=== PATIENT | male | born 1955 | race Caucasian/White ===

== ENCOUNTER 2017-03-04 14:18 | Inpatient (IN) | payer OTHER ==
[2017-03-04 15:21] LABS: Hemoglobin 11.1 g/dL (14.0-18.0); Mean Corpuscular HGB CONC 32.4 g/dL (32.0-36.0); Mean Corpuscular Volume 95.7 fL (80.0-94.0); RBC Distribution Width 14.4 % (11.5-14.5); Red Blood Cell (RBC) Count 3.59 mill/uL (4.70-6.10); White Blood Cell (WBC) Count 8.3 thou/uL (4.8-10.8)
[2017-03-04 15:22] LABS: #Lymphocytes 1.1 thou/uL (1.20-3.40); #Monocytes 1.1 thou/uL (0.11-0.59); %Basophils 0.3 % (0.0-1.0); %Eosinophils 0.4 % (0.0-10.0); %Lymphocytes 13.3 % (21.0-51.0); %Monocytes 13.6 % (0.0-10.0); %Neutrophils 72.3 % (42.0-75.0); Platelet Count 82 thou/uL (130-400)
--- NOTE | 2017-03-04 15:35 | RAD ---
CHEST ONE VIEW: 03/04/17 HISTORY: Emergency exam. COMPARISON: Chest one view 06/14/16. FINDINGS: There is opacity in the right middle and right lower lobe. Remainder of the lung aguirre are clear. No pneumothorax. IMPRESSION: Right middle lobe and lower lobe air space opacity may represent atelectasis or infection. POS: [facility]
[2017-03-04 15:43] LABS: ALT (SGPT) 46 U/L (8-55); AST (SGOT) 105 U/L (5-34); Albumin 3.3 g/dL (3.4-4.8); Alkaline Phosphatase 195 U/L (40-150); Anion Gap 11 mmol/L (10-20); BUN (Urea Nitrogen) 6 mg/dL (8.4-25.7); Bilirubin, Total 2.5 mg/dL (0.2-1.2); CK (CPK) 727 U/L (30-200); Calc. Creatinine Clearance 0 mL/min (70-130); Calcium 9.1 mg/dL (7.8-10.44); Carbon Dioxide 29 mmol/L (23-31); Chloride 89 mmol/L (98-107); Estimated GFR-MDRD Greater than 90; Globulin 4.5 g/dL (2.4-3.5); Glucose 124 mg/dL (80-115); Potassium 4.3 mmol/L (3.5-5.1); Protein, Total 7.8 g/dL (5.8-8.1); Sodium 125 mmol/L (136-145)
[2017-03-04 15:45] LABS: Troponin I 0.015 ng/mL (< 0.028)
[2017-03-04 15:50] LABS: CKMB 9.2 ng/mL (0-6.6)
[2017-03-04] MEDS ORDERED: Furosemide 40 MG/4 ML VIAL ONE (16:44)
[2017-03-04 16:51] LABS: Bilirubin Negative (Negative); Blood, Urine Negative (Negative); Clarity CLEAR (Clear); Glucose, Urine (Dipstick) Negative (Negative); Leukocyte Negative (Negative); Nitrite Negative (Negative); Protein, Urine (Dipstick) 100 mg/dL (Neg-Trace)
[2017-03-04] MEDS ORDERED: Doxycycline 100 MG CAP PO SCH (17:00)
[2017-03-04 17:04] LABS: Bacteria/HPF None Seen HPF (None Seen); Hyaline Casts/LPF 0-3 HYALINE CAST LPF (0-3 Hyaline); RBC/HPF 0-3 HPF (0-3); Squamous Epithelial 0-3 HPF (0-3); WBC/HPF 0-3 HPF (0-3)
[2017-03-04 19:16] LABS: Troponin I 0.015 ng/mL (< 0.028)
[2017-03-04] MEDS ORDERED: Acetaminophen 325 MG TAB PO PRN ×2 (20:24→20:36)
[2017-03-04] MEDS ORDERED: Ondansetron HCl/PF 4 MG/2 ML Vial IVP PRN (20:24)
[2017-03-04] MEDS ORDERED: Ondansetron ODT 4 MG TAB SL PRN (20:24)
[2017-03-04] MEDS ORDERED: HumaLOG 300 UNITS/3 ML VIAL SC PRN ×2 (20:36)
[2017-03-04] MEDS ORDERED: Dextrose 5% in Water 1,000 ML IV PRN (20:36)
[2017-03-04] MEDS ORDERED: Benzonatate 100 MG CAP PO PRN (20:36)
[2017-03-04] MEDS ORDERED: Dextrose 50% Abboject 50 ML SYRINGE SLOW IVP PRN (20:36)
[2017-03-04] MEDS ORDERED: hydrALAZINE 20 MG/ML VIAL SLOW IVP PRN (20:36)
[2017-03-04] MEDS ORDERED: Mag-Al 1200 mg/1200 mg/30 ML UDCUP PO PRN (20:36)
[2017-03-04] MEDS: Famotidine 20 MG TAB PO SCH (20:57)
[2017-03-04] MEDS: Docusate 100 MG CAP PO SCH (20:57)
--- NOTE | 2017-03-04 21:44 | HP ---
PRIMARY CARE PHYSICIAN: Dr. Gibbs. CHIEF COMPLAINT: Difficulty breathing. HISTORY OF PRESENT ILLNESS: Mr. Manzano is a pleasant 61-year-old gentleman who has a history of diabe yue and hypertension. He also has a history of aortic stenosis and recent aortic valve replacement w ith a porcine valve. He was in his usual state of health until about 2 days ago when he says he star harvinder feeling "bad." He says he thought he might have fever and was having some cough which was produc tive of some clear phlegm and he also noted that he started getting short of breath anywhere when he tried to walk more than 40 or 50 feet. He also noticed some increasing lower extremity edema and a l ittle nasal congestion. He said he had pneumonia about a year ago and was concerned that this could be occurring again; however, he says at this time the symptoms are not as severe. He went to see his primary care physician who was concerned and told him to go to the emergency room for evaluation. T he patient again has noted about a 21-pound weight gain over the last few weeks. He denies any chest pain, however. He denies any palpitations. He denies any PND or orthopnea. He says he can sleep t hrough the night without difficulty and does not have to be propped up on any pillows to rest. The p atient had a chest x-ray done in the ER which was consistent with either pulmonary vascular congestio n or infiltrate which could not be ruled out in the right mid to lower lobe. The patient has been gi all Lasix in the ER and has since improved with regards to his symptoms. REVIEW OF SYSTEMS: Constitutional: There are no fevers, chills, no night sweats, no weight loss. H EENT: No headaches, no dizziness, no visual changes, no sore throat, no rhinorrhea, no neck pain, no adenopathy. Pulmonary: As the history of present illness. He has had some cough productive of tanner ar sputum. There is no hemoptysis and no chest pain. Cardiovascular: As the history of present illness. Gastrointestinal: He denies any abdominal pain, no nausea, no vomiting, no change in bowels. Genitourinary: No urinary frequency, hematuria, no he sitancy. Neurologic: No focal weakness, numbness, no seizures. Psychiatric: No symptoms of anxiet y or depression. Skin and Integument: No skin changes. No rash. Endocrine: No heat or cold intolerance. PAST MEDICAL HISTORY: Significant for diabetes mellitus type 2, hypertension, obesity, aortic stenos is. PAST SURGICAL HISTORY: He has had an aortic valve replacement with a porcine valve. He had right kn ee surgery with some removal of cartilage, left hip surgery which was a left hip replacement. ALLERGIES: KEFLEX which causes hives. SOCIAL HISTORY: He is . He is a former smoker. He occasionally drinks a beer. CODE STATUS: FULL CODE. FAMILY HISTORY: He has a mother that had a "bad valve." MEDICATIONS: As taken from the ER records include metformin 500 mg twice a day, metoprolol 50 mg 2 t ablets in the day, valsartan 160 mg daily, and Lasix 40 mg a day. PHYSICAL EXAMINATION: GENERAL: He is alert and oriented. He appears to be in no acute distress. VITAL SIGNS: Blood pressure was 152/83, heart rate 82, respiratory rate of 20, temperature is 98.6, O2 sat was 95% on room air. HEENT: Pupils are equal, round, and reactive. Extraocular muscles are intact. His sclerae are anic teric. Throat, no erythema, no exudates. NECK: There is no adenopathy, no bruits. LUNGS: He has got some coarse breath sounds, but in general clear to auscultation. No rales. No wh eezing. CARDIOVASCULAR: He has a normal S1, S2. I did not appreciate an S3 or S4. He does have a 2/6 systo lic murmur. ABDOMEN: Obese, it is soft, it is nontender, nondistended. Positive for bowel sounds. No rebound, no guarding. EXTREMITIES: He has got 1+ edema. NEUROLOGICALLY: The exam is nonfocal. LABORATORY RESULTS: White blood cell count 8.3, hemoglobin 11.1, hematocrit is 34.4, platelet count is 82. Sodium 125, potassium 4.2, chloride is 89, CO2 is 29, BUN is 6, creatinine 0.71, glucose is 1 25, bilirubin is elevated at 2.5, so was the natriuretic peptide. ASSESSMENT AND PLAN: 1. This is a pleasant 61-year-old gentleman who presents with increasing shortness of breath over th e past few days as well as increasing lower extremity edema. His symptoms are more consistent with p ossible congestive heart failure exacerbation then pneumonia as the patient does not have a white blo od cell count elevation, nor does he have a fever or the classic clinical symptoms associated with pn eumonia. He has maintained a good appetite, etc. He seems to have responded to Lasix here in the em ergency room. It is noted through review of records that he has some liver disease as well. He had an abdominal ultrasound back in March and he does have some thrombocytopenia and elevation of his liver function test on lab work. Decompensated liver disease could also lead to volume expansion as well. To help us assess, he will be admitted. We will continue IV diuresis as tolerated. Get an ec hocardiogram to evaluate his valve as well as his ejection fraction and repeat his proBNP. 2. Hyponatremia. I suspect this is likely risk result of congestive heart failure or to early cirrh osis. Hopefully, with diuresis, this should improve with improved volume status. 3. Pneumonia, this seems less likely. We will repeat a chest x-ray in the a.m., and if the changes seen have improved then more than likely this was a result of volume overload. We will hold off on a dditional antibiotics at this time. 4. Diabetes mellitus. We will continue metformin as well as sliding scale insulin. 5. With hypertension, we will continue his usual home medications for blood pressure.
[2017-03-04 22:10] LABS: Troponin I 0.016 ng/mL (< 0.028)
[2017-03-04 23:40] LABS: Osmolality, Urine 241 mOsm/kg (300-900)
[2017-03-05 00:19] LABS: Sodium, Urine 42 mmol/L (Not Available)
[2017-03-05] MEDS: Furosemide 40 MG/4 ML VIAL SLOW IVP SCH ×2 (05:23→14:45)
[2017-03-05 05:43] LABS: ALT (SGPT) 40 U/L (8-55); AST (SGOT) 98 U/L (5-34); Albumin 2.9 g/dL (3.4-4.8); Alkaline Phosphatase 159 U/L (40-150); Anion Gap 13 mmol/L (10-20); BUN (Urea Nitrogen) 7 mg/dL (8.4-25.7); Bilirubin, Total 2.5 mg/dL (0.2-1.2); Calc. Creatinine Clearance 205 mL/min (70-130); Calcium 8.6 mg/dL (7.8-10.44); Carbon Dioxide 26 mmol/L (23-31); Chloride 90 mmol/L (98-107); Estimated GFR-MDRD Greater than 90; Globulin 4.1 g/dL (2.4-3.5); Glucose 90 mg/dL (80-115); Magnesium 1.2 mg/dL (1.6-2.6); Phosphorus 3.5 mg/dL (2.3-4.7); Potassium 3.9 mmol/L (3.5-5.1); Sodium 125 mmol/L (136-145)
[2017-03-05 06:14] LABS: Band 4 % (5-11); Eosinophils 2 % (0-10); Hemoglobin 10.2 g/dL (14.0-18.0); Lymphocytes 19 % (21-51); MDiff Complete? YES; Mean Corpuscular HGB CONC 33.1 g/dL (32.0-36.0); Mean Corpuscular Hemoglobin 31.6 pg (27.0-31.0); Mean Corpuscular Volume 95.4 fl (80.0-94.0); Mean Platelet Volume 8.3 fL (7.4-10.4); Monocytes 13 % (0-10); Neutrophil 62 % (42-75); PLT Morphology Comment Appears Decreased; Platelet Count 70 thou/uL (130-400); RBC Distribution Width 14.6 % (11.5-14.5); Red Blood Cell (RBC) Count 3.23 mill/uL (4.70-6.10); White Blood Cell (WBC) Count 7.2 thou/uL (4.8-10.8)
--- NOTE | 2017-03-05 08:05 | RAD ---
2 VIEWS CHEST: Date: 03/05/17 COMPARISON: 03/31/16 and 03/04/17. HISTORY: Congestive heart failure. FINDINGS: Two views of the chest show a cardiomediastinal silhouette which is upper limits of normal in size. T he patient is status post sternotomy for aortic valve replacement. There is no evidence of consolidat ion, mass, or pleural effusion. IMPRESSION: No evidence of acute cardiopulmonary disease. POS: [facility]
[2017-03-05] MEDS ORDERED: Enoxaparin Sodium 40 MG/0.4 ML SYRINGE SC SCH (09:00)
[2017-03-05] MEDS: Docusate 100 MG CAP PO SCH ×2 (09:23→20:05)
[2017-03-05] MEDS: Famotidine 20 MG TAB PO SCH ×2 (09:23→20:05)
[2017-03-05] MEDS ORDERED: Magnesium Sulfate 4 GM in Sodium Chloride 0.9% 250 ML 250 ML IVPB SCH (11:00)
--- NOTE | 2017-03-05 11:05 | CON ---
DATE OF SERVICE: 03/05/2017 REASON FOR CONSULTATION: Heart failure. PRIMARY STITCHER HAND: Dr. Lore Garcia. HISTORY OF PRESENT ILLNESS: Mr. Manzano is a very pleasant 61-year-old white gentleman, who [facility]. He has noted that in the last 2 months, he has slowly been gett ing more short of breath, has slowly been gaining weight, a total of about 20 pounds. He has slowly noticed worsening edema in his legs and increased girth in his abdomen to the point where he could no t buckle up his pants anymore. He still lay on his bed and tried to sleep, but his shortness of pipo th was getting worse. He saw his primary care doctor, Dr. Gibbs, and she diagnosed him with conges tive heart failure and was sent to the ER and he was admitted for IV diuresis. He states that he has been having a lot of cough recently and the cough is just getting worse. PAST MEDICAL HISTORY: 1. Type 2 diabetes. 2. Hypertension. 3. Obesity. 4. Severe aortic stenosis, status post bioprosthetic aortic valve. 5. Mild coronary artery disease. PAST SURGICAL HISTORY: 1. AVR with a #23 Angulo Magna bioprosthetic aortic valve. 2. Right knee surgery. 3. Left hip replacement. 4. Heart catheterization showing mild coronary disease about a year ago before his bypass. OUTPATIENT MEDICATIONS: Include, 1. Metformin 500 mg twice a day. 2. Metoprolol 50 mg twice a day. 3. Valsartan 160 mg a day. 4. Lasix 40 mg a day. 5. Aspirin 81 a day. ALLERGIES: KEFLEX, causes hives. SOCIAL HISTORY: Former smoker, occasional alcohol use, no drug use. FAMILY HISTORY: Mother had valve issues as well, otherwise noncontributory. REVIEW OF SYSTEMS: A 12-point review of systems was done and is all negative unless stated in the hi story of present illness. PHYSICAL EXAMINATION: VITAL SIGNS: Temperature 98.7, pulse 83, respiratory rate 18, sat 98% on room air, blood pressure 13 2/62. GENERAL: Awake, alert, oriented x3, in no distress. HEENT: Normocephalic, atraumatic. NECK: Supple. LUNGS: Clear. CARDIOVASCULAR: S1, S2. There is a grade 3/6 systolic murmur, mid peaking at the right upper sterna l border related to the rest of the precordium, no rubs. ABDOMEN: Distended, nontender. EXTREMITIES: 3+ edema. SKIN: Warm and dry. LABORATORY WORK: Reviewed. CBC with a white count of 7.2, hemoglobin 10.2, platelet count of 70. C hemistry: Sodium of 125, potassium is 3.9, chloride of 90, carbon dioxide of 26, anion gap of 13, BU N of 7, creatinine 0.65. GFR greater than 90. Phos was normal. Mag was low at 1.2. Total bilirubi n 2.5, AST 98, ALT 40, alkaline phosphatase 159. Troponin was negative x3. CK-MB of 9.2. BNP of 71 2, albumin of 2.9, globulin of 4.1. Cortisol was normal at 8. TSH was normal. UA was unremarkable except for 100 protein. Chest x-ray was clear on admission. ASSESSMENT AND PLAN: 1. Acute right ventricular decompensated heart failure. 2. Volume overload. 3. Abnormal liver function tests, elevated bilirubin, low albumin, and low platelets. 4. History of bioprosthetic aortic valve replacement. 5. Mild coronary artery disease. PLAN: 1. Continue IV diuresis. 2. We will get echocardiogram to make sure that his valve is normal functioning as his murmur still sounds somewhat significant hopefully he does not have a patient of mismatch. We will evaluate this with the echo. 3. May need a right upper quadrant ultrasound and his liver function tests were abnormal, we will ge t coagulation panel. Thank you for letting us to participate in the care of your patient. We will follow.
[2017-03-05 14:01] VITALS: BMI 37.2
--- NOTE | 2017-03-05 20:43 | PDOC.PN ---
- Subjective Encounter Start Date: 03/05/17 Encounter Start Time: 13:00 Patient seen and examined. No new complaints. No overnight events. SOB improving / Leg swelling improving - Objective Resuscitation Status: Resuscitation Status FULL:Full Resuscitation MAR Reviewed: Yes Vital Signs & Weight: Vital Signs (12 hours) Temp Pulse Pulse Pulse Resp BP BP 03/05/17 20:00 99.4 F 89 20 03/05/17 14:45 98.7 F 85 20 03/05/17 10:08 87 90 156/63 H 166/72 H BP Pulse Ox 03/05/17 20:00 136/63 98 03/05/17 14:45 137/65 97 03/05/17 10:08 Weight Admit Weight 274 lb 5 oz Weight 274 lb 5 oz I&O: 03/04/17 03/05/17 03/06/17 06:59 06:59 06:59 Intake Total 1380 1210 Output Total 925 2520 Balance 455 -1310 Result Diagrams: 03/05/17 04:02 03/05/17 04:02 Additional Labs: Accuchecks 03/05/17 03/05/17 03/05/17 16:42 11:53 06:05 POC Glucose 109 165 H 107 03/04/17 20:58 POC Glucose 112 H Radiology Reviewed by me: Yes (CXR - Mild PV congestion) EKG Reviewed by me: Yes (Tele SR) Phys Exam - Physical Examination Constitutional: NAD (at rest) Respiratory: no wheezing bibasilar rales, Scat rhonchi, Symmetrical Cardiovascular: RRR, no rub 2/6 SM over LLSB, No heaves/pulsations Gastrointestinal: soft, non-tender, no distention, positive bowel sounds obese Musculoskeletal: edema present (with some calf tenderness) Neurological: non-focal, normal sensation, moves all 4 limbs Psychiatric: normal affect, A&O x 3 Dx/Plan - Plan DVT proph w/SCDs (No Lovenox due to low platelets) IMPRESSION: 1. Acute CHF exacerbation 2. Hypomagnesaemia - Mg 1.2 3. Obesity BMI 37 4. Hyponatremia - prob due to Volume overload 5. h/o bioprosthetic AVR/Mild CAD/DM2/HTN/Chronic thrombocytopenia/Forner smoker PLAN: * Cardio input appreciated * Await Echo * Cont Lasix at 40 mg BID * Resume Valsartan and Metoprolol at low dose * Add Potassium Chloride 20 meq daily * AM labs * Replace Mg * r/o DVT * Conselled extensively on HF/fluid and salt rest * Will need 2-3 more days to stabilize Review of Systems - Review of Systems Cardiovascular: orthopnea. negative: chest pain, palpitations, paroxysmal nocturnal dyspnea, edema, light headedness Gastrointestinal: negative: Nausea, Vomiting, Abdominal Pain, Diarrhea, Constipation, Melena, Hematochezia, Other - Medications/Allergies Allergies/Adverse Reactions: Allergies Allergy/AdvReac Type Severity Reaction Status Date / Time cephalexin [From Keflex] Allergy Verified 06/05/16 09:49 Medications: Current Medications Acetaminophen (Tylenol) 650 mg PO Q4H PRN PRN Reason: Headache/Fever or Pain Al Hydroxide/Mg Hydroxide (Maalox) 30 ml PO Q6H PRN PRN Reason: Heartburn or Indigestion Benzonatate (Tessalon) 100 mg PO Q4H PRN PRN Reason: Cough Dextrose/Water (Dextrose 50%) 25 gm SLOW IVP PRN PRN PRN Reason: Hypoglycemia Docusate Sodium (Colace) 100 mg PO BID [facility] Last Admin: 03/05/17 20:05 Dose: 100 mg Famotidine (Pepcid) 20 mg PO BID [facility] Last Admin: 03/05/17 20:05 Dose: 20 mg Furosemide (Lasix) 40 mg SLOW IVP 0600,1400 [facility] Last Admin: 03/05/17 14:45 Dose: 40 mg Glucagon (Glucagon) 1 mg IM PRN PRN PRN Reason: Hypoglycemia Hydralazine HCl (Apresoline) 10 mg SLOW IVP Q4H PRN PRN Reason: Systolic BP > 180 Dextrose/Water (D5w) 1,000 mls @ 0 mls/hr IV .Q0M PRN; As Directed PRN Reason: Hypoglycemia Insulin Human Lispro (Humalog) 0 units SC .MODERATE SLIDING SC PRN PRN Reason: Moderate Correctional Scale Insulin Human Lispro (Humalog) 0 units SC .BEDTIME SLIDING SC PRN PRN Reason: Bedtime Correctional Scale Magnesium Hydroxide (Milk Of Magnesium) 30 ml PO DAILYPRN PRN PRN Reason: Constipation Metoprolol Succinate (Toprol Xl) 12.5 mg PO DAILY [facility] Potassium Chloride (K-Dur) 20 meq PO QAM-WM [facility] Valsartan (Diovan) 40 mg PO HS [facility]
[2017-03-05] MEDS: Valsartan 80 MG TAB PO SCH (21:53)
[2017-03-06 06:16] LABS: ALT (SGPT) 41 U/L (8-55); AST (SGOT) 104 U/L (5-34); Albumin 2.9 g/dL (3.4-4.8); Alkaline Phosphatase 162 U/L (40-150); Anion Gap 13 mmol/L (10-20); BUN (Urea Nitrogen) 7 mg/dL (8.4-25.7); Bilirubin, Total 2.1 mg/dL (0.2-1.2); Calc. Creatinine Clearance 202 mL/min (70-130); Calcium 8.6 mg/dL (7.8-10.44); Carbon Dioxide 24 mmol/L (23-31); Chloride 92 mmol/L (98-107); Estimated GFR-MDRD Greater than 90; Globulin 4.4 g/dL (2.4-3.5); Glucose 83 mg/dL (80-115); Magnesium 1.9 mg/dL (1.6-2.6); Phosphorus 3.7 mg/dL (2.3-4.7); Potassium 4.1 mmol/L (3.5-5.1); Protein, Total 7.3 g/dL (5.8-8.1); Sodium 125 mmol/L (136-145)
[2017-03-06] MEDS: Furosemide 40 MG/4 ML VIAL SLOW IVP SCH ×2 (06:20→14:33)
[2017-03-06 06:22] LABS: Band 3 % (5-11); Hemoglobin 10.6 g/dL (14.0-18.0); Lymphocytes 18 % (21-51); MDiff Complete? YES; Mean Corpuscular HGB CONC 32.9 g/dL (32.0-36.0); Mean Corpuscular Hemoglobin 31.5 pg (27.0-31.0); Mean Corpuscular Volume 95.8 fl (80.0-94.0); Mean Platelet Volume 8.2 fL (7.4-10.4); Monocytes 17 % (0-10); Neutrophil 62 % (42-75); PLT Morphology Comment Appears Decreased; Platelet Count 67 thou/uL (130-400); RBC Distribution Width 14.4 % (11.5-14.5); Red Blood Cell (RBC) Count 3.36 mill/uL (4.70-6.10); White Blood Cell (WBC) Count 7.7 thou/uL (4.8-10.8)
[2017-03-06] MEDS: Potassium Chloride 20 MEQ TAB PO SCH (08:43)
[2017-03-06] MEDS: Famotidine 20 MG TAB PO SCH ×2 (08:43→20:05)
[2017-03-06] MEDS: Docusate 100 MG CAP PO SCH ×2 (08:43→20:05)
--- NOTE | 2017-03-06 09:11 | ULT ---
HEPATIC SONOGRAM WITH DUPLEX EVALUATION: HISTORY: Normal liver function tests. FINDINGS: No focal stones are evident within the gallbladder lumen. Gallbladder wall is slightly thickened at 0.6 cm, a nonspecific finding in the setting of small amount of free fluid throughout the abdomen. L iver is heterogeneous without focal mass or intrahepatic biliary dilatation. Spleen is 15.1 cm in le ngth. Good color and spectral Doppler flow are present within the hepatic and splenic arteries. Portal all ous flow is towards the liver. Hepatic venous flow is towards the IVC. IMPRESSION: 1. No evidence of gallstones or biliary obstruction. 2. Moderate splenomegaly and ascites may reflect portal venous hypertension. POS: [facility]
--- NOTE | 2017-03-06 09:13 | ULT ---
BILATERAL LOWER EXTREMITY VENOUS ULTRASOUND: COMPARISON: None. HISTORY: Bilateral lower extremity edema. TECHNIQUE: Multiplanar, trin[place] scale and color Doppler images were obtained in a bilateral lower extremity venous ultrasound. Spectral analysis of the Doppler waveforms was performed. FINDINGS: The bilateral common femoral veins, profunda femoral veins, superficial femoral veins, and popliteal veins are normal in appearance without visible thrombus. These vessels demonstrate normal compressib ility, flow, and augmentation. The posterior tibial veins and greater saphenous veins are also paten t. IMPRESSION: No evidence of deep vein thrombosis. POS: [facility]
--- NOTE | 2017-03-06 10:56 | PDOC.PN ---
- Subjective Encounter Start Date: 03/06/17 Encounter Start Time: 09:15 Subjective: sob is getting better -: admits to drinking 4-6 beers on alternate days -: no chest pain or palp, is amb in hallway - Objective Resuscitation Status: Resuscitation Status FULL:Full Resuscitation MAR Reviewed: Yes Vital Signs & Weight: Vital Signs (12 hours) Temp Pulse Pulse Resp BP BP BP 03/06/17 09:45 103 H 173/74 H 167/74 H 03/06/17 08:46 98.8 F 89 16 03/06/17 08:40 98.8 F 89 16 03/06/17 04:00 99.2 F 93 20 164/70 H 03/06/17 00:00 99.2 F 92 20 132/65 BP Pulse Ox Pulse Ox Pulse Ox 03/06/17 09:45 97 97 03/06/17 08:46 159/72 H 94 L 03/06/17 08:40 03/06/17 04:00 94 L 03/06/17 00:00 94 L Weight Admit Weight 274 lb 5 oz Weight 275 lb I&O: 03/05/17 03/06/17 03/07/17 06:59 06:59 06:59 Intake Total 1380 1690 Output Total 925 3440 Balance 455 -1750 Result Diagrams: 03/06/17 04:51 03/06/17 04:51 Additional Labs: Accuchecks 03/06/17 03/05/17 03/05/17 05:38 20:33 16:42 POC Glucose 100 127 H 109 03/05/17 11:53 POC Glucose 165 H Phys Exam - Physical Examination HEENT: PERRLA, moist MMs Neck: no JVD, supple Respiratory: no wheezing, no rales Cardiovascular: RRR, no significant murmur Gastrointestinal: soft, non-tender, positive bowel sounds Musculoskeletal: pulses present, edema present Neurological: non-focal, moves all 4 limbs Psychiatric: A&O x 3 Dx/Plan (1) Acute on chronic diastolic (congestive) heart failure Code(s): I50.33 - ACUTE ON CHRONIC DIASTOLIC (CONGESTIVE) HEART FAILURE Status : Acute (2) CAD (coronary artery disease) Code(s): I25.10 - ATHSCL HEART DISEASE OF [place] CORONARY ARTERY W/O ANG PCTRS Status: Chronic Qualifiers: Coronary Disease-Associated Artery/Lesion type: [place] artery [place] vs. transplanted heart: samish heart Associated angina: without angina Qualified Code(s): I25.10 - Atherosclerotic heart disease of [place] coronary artery without angina pectoris (3) Alcohol abuse Code(s): F10.10 - ALCOHOL ABUSE, UNCOMPLICATED Status: Chronic (4) Hyponatremia Code(s): E87.1 - HYPO-OSMOLALITY AND HYPONATREMIA Status: Acute Comment: sec to beer abuse (5) chronic macrocytic anemia Status: Chronic (6) Obesity (BMI 30-39.9) Code(s): E66.9 - OBESITY, UNSPECIFIED Status: Chronic (7) Thrombocytopenia Code(s): D69.6 - THROMBOCYTOPENIA, UNSPECIFIED Status: Chronic (8) Aortic stenosis Code(s): I35.0 - NONRHEUMATIC AORTIC (VALVE) STENOSIS Status: Chronic Comment: h/o bioprosthetic aortic valve (9) Diabetes type 2, controlled Code(s): E11.9 - TYPE 2 DIABETES MELLITUS WITHOUT COMPLICATIONS Status: Chronic Qualifiers: Diabetes mellitus complication status: with unspecified complications Diabetes mellitus peoplesoft administrator insulin use: without peoplesoft administrator use Qualified Code( s): E11.8 - Type 2 diabetes mellitus with unspecified complications (10) Hypertension Code(s): I10 - ESSENTIAL (PRIMARY) HYPERTENSION Status: Chronic Qualifiers: Hypertension type: essential hypertension Qualified Code(s): I10 - Essential (primary) hypertension - Plan is on lasix 40mg iv q12h -: watch for alc withdrawal, likely chronic hyponatremia -: await echo results -: is on toprol and valsartan -: to ambulate as tolerated * . Review of Systems - Medications/Allergies Allergies/Adverse Reactions: Allergies Allergy/AdvReac Type Severity Reaction Status Date / Time cephalexin [From Keflex] Allergy Verified 06/05/16 09:49 Medications: Current Medications Acetaminophen (Tylenol) 650 mg PO Q4H PRN PRN Reason: Headache/Fever or Pain Al Hydroxide/Mg Hydroxide (Maalox) 30 ml PO Q6H PRN PRN Reason: Heartburn or Indigestion Benzonatate (Tessalon) 100 mg PO Q4H PRN PRN Reason: Cough Dextrose/Water (Dextrose 50%) 25 gm SLOW IVP PRN PRN PRN Reason: Hypoglycemia Docusate Sodium (Colace) 100 mg PO BID [facility] Last Admin: 01/20/18 08:43 Dose: 100 mg Famotidine (Pepcid) 20 mg PO BID [facility] Last Admin: 03/06/17 08:43 Dose: 20 mg Furosemide (Lasix) 40 mg SLOW IVP 0600,1400 [facility] Last Admin: 03/06/17 06:20 Dose: 40 mg Glucagon (Glucagon) 1 mg IM PRN PRN PRN Reason: Hypoglycemia Hydralazine HCl (Apresoline) 10 mg SLOW IVP Q4H PRN PRN Reason: Systolic BP > 180 Dextrose/Water (D5w) 1,000 mls @ 0 mls/hr IV .Q0M PRN; As Directed PRN Reason: Hypoglycemia Insulin Human Lispro (Humalog) 0 units SC .MODERATE SLIDING SC PRN PRN Reason: Moderate Correctional Scale Insulin Human Lispro (Humalog) 0 units SC .BEDTIME SLIDING SC PRN PRN Reason: Bedtime Correctional Scale Magnesium Hydroxide (Milk Of Magnesium) 30 ml PO DAILYPRN PRN PRN Reason: Constipation Metoprolol Succinate (Toprol Xl) 12.5 mg PO DAILY [facility] Last Admin: 03/06/17 08:43 Dose: 12.5 mg Potassium Chloride (K-Dur) 20 meq PO QAM-WM [facility] Last Admin: 03/06/17 08:43 Dose: 20 meq Valsartan (Diovan) 40 mg PO HS [facility] Last Admin: 03/05/17 21:53 Dose: 40 mg
[2017-03-06] MEDS: Milk Of Magnesia 30 ML UDCUP PO PRN (18:19)
--- NOTE | 2017-03-06 19:43 | PDOC.CTH ---
Cardiology Progress Note - Subjective He has diuresed well and feels better. His abdominal distention has improved. - Objective Vital Signs Temp Pulse Pulse Resp BP BP BP 03/06/17 16:15 98.1 F 81 16 155/68 H 03/06/17 11:40 98.0 F 86 14 152/72 H 03/06/17 09:45 103 H 173/74 H 167/74 H 03/06/17 08:46 98.8 F 89 16 03/06/17 08:40 98.8 F 89 16 BP Pulse Ox Pulse Ox Pulse Ox 03/06/17 16:15 96 03/06/17 11:40 97 03/06/17 09:45 97 97 03/06/17 08:46 159/72 H 94 L 03/06/17 08:40 Admit Weight 274 lb 5 oz Weight 275 lb 03/05/17 03/06/17 03/07/17 06:59 06:59 06:59 Intake Total 1380 1690 720 Output Total 925 3440 3235 Balance 464 -3171 -0428 - Physical Examination General/Neuro: alert & oriented x3, NAD Neck: no JVD present Lungs: unlabored respirations Heart: RRR Abdomen: NT/ND Extremities: + edema B (2+) - Telemetry Telemetry Rhythm: NSR - Labs Result Diagrams: 03/06/17 04:51 03/06/17 04:51 Troponin/CKMB CK-MB (CK-2) 9.2 ng/mL (0-6.6) H* 03/04/17 14:51 Troponin I 0.016 ng/mL (< 0.028) 03/04/17 21:39 - Assessment/Plan 1. Acute RV dysfunction. 2. Sleep apnea 3. Obesity 4. Hyponatremia, likely dilutional 5. S/P bioprosthetic AVR PLAN: - Continue IV diuresis. - Echo pending.
[2017-03-06] MEDS: Valsartan 80 MG TAB PO SCH (20:05)
[2017-03-07] MEDS: Furosemide 40 MG/4 ML VIAL SLOW IVP SCH ×2 (05:06→14:15)
[2017-03-07 06:01] LABS: Magnesium 1.7 mg/dL (1.6-2.6); Phosphorus 4.3 mg/dL (2.3-4.7)
[2017-03-07 06:30] LABS: Band 1 % (5-11); Eosinophils 1 % (0-10); Hemoglobin 10.9 g/dL (14.0-18.0); Lymphocytes 21 % (21-51); MDiff Complete? YES; Mean Corpuscular HGB CONC 33.6 g/dL (32.0-36.0); Mean Corpuscular Hemoglobin 32.5 pg (27.0-31.0); Mean Corpuscular Volume 96.7 fl (80.0-94.0); Mean Platelet Volume 7.9 fL (7.4-10.4); Monocytes 9 % (0-10); Neutrophil 68 % (42-75); PLT Morphology Comment Appears Decreased; Platelet Count 67 thou/uL (130-400); RBC Distribution Width 14.7 % (11.5-14.5); Red Blood Cell (RBC) Count 3.36 mill/uL (4.70-6.10); White Blood Cell (WBC) Count 6.3 thou/uL (4.8-10.8)
[2017-03-07] MEDS ORDERED: Sodium Chloride 0.9% 10 ML ONE ×2 (07:52→14:13)
[2017-03-07] MEDS: Potassium Chloride 20 MEQ TAB PO SCH (08:25)
[2017-03-07] MEDS: Docusate 100 MG CAP PO SCH ×2 (08:25→20:34)
[2017-03-07] MEDS: Famotidine 20 MG TAB PO SCH ×2 (08:25→20:34)
[2017-03-07] MEDS: Milk Of Magnesia 30 ML UDCUP PO PRN (10:51)
--- NOTE | 2017-03-07 12:10 | PDOC.PN ---
- Subjective Encounter Start Date: 03/07/17 Encounter Start Time: 09:50 Subjective: breathing better, no chest pain or palp -: is amb in hallway - Objective Resuscitation Status: Resuscitation Status FULL:Full Resuscitation MAR Reviewed: Yes Vital Signs & Weight: Vital Signs (12 hours) Temp Pulse Pulse Pulse Resp BP BP 03/07/17 09:16 103 H 88 148/63 H 125/60 03/07/17 08:15 98.6 F 91 20 03/07/17 03:18 97.8 F 87 12 BP BP Pulse Ox Pulse Ox Pulse Ox 03/07/17 09:16 99 93 L 03/07/17 08:15 148/69 H 96 03/07/17 03:18 175/82 H 93 L Weight Admit Weight 274 lb 5 oz Weight 266 lb 3.2 oz I&O: 03/06/17 03/07/17 03/08/17 06:59 06:59 06:59 Intake Total 1690 1340 Output Total 3440 4055 Balance -7710 -7215 Result Diagrams: 03/07/17 05:22 03/06/17 04:51 Additional Labs: Accuchecks 03/07/17 03/06/17 03/06/17 05:40 19:39 17:14 POC Glucose 108 149 H 103 Phys Exam - Physical Examination HEENT: PERRLA, moist MMs Neck: no JVD, supple Respiratory: no wheezing, no rales Cardiovascular: RRR, no significant murmur Gastrointestinal: soft, non-tender, positive bowel sounds Musculoskeletal: pulses present, edema present Neurological: non-focal, moves all 4 limbs Psychiatric: A&O x 3 Dx/Plan (1) Acute on chronic diastolic (congestive) heart failure Code(s): I50.33 - ACUTE ON CHRONIC DIASTOLIC (CONGESTIVE) HEART FAILURE Status : Acute (2) CAD (coronary artery disease) Code(s): I25.10 - ATHSCL HEART DISEASE OF [place] CORONARY ARTERY W/O ANG PCTRS Status: Chronic Qualifiers: Coronary Disease-Associated Artery/Lesion type: [place] artery [place] vs. transplanted heart: [place] heart Associated angina: without angina Qualified Code(s): I25.10 - Atherosclerotic heart disease of [place] coronary artery without angina pectoris (3) Alcohol abuse Code(s): F10.10 - ALCOHOL ABUSE, UNCOMPLICATED Status: Chronic (4) Hyponatremia Code(s): E87.1 - HYPO-OSMOLALITY AND HYPONATREMIA Status: Acute Comment: sec to beer abuse (5) chronic macrocytic anemia Status: Chronic (6) Obesity (BMI 30-39.9) Code(s): E66.9 - OBESITY, UNSPECIFIED Status: Chronic (7) Thrombocytopenia Code(s): D69.6 - THROMBOCYTOPENIA, UNSPECIFIED Status: Chronic (8) Aortic stenosis Code(s): I35.0 - NONRHEUMATIC AORTIC (VALVE) STENOSIS Status: Chronic Comment: h/o bioprosthetic aortic valve (9) Diabetes type 2, controlled Code(s): E11.9 - TYPE 2 DIABETES MELLITUS WITHOUT COMPLICATIONS Status: Chronic Qualifiers: Diabetes mellitus complication status: with unspecified complications Diabetes mellitus alf insulin use: without alf use Qualified Code( s): E11.8 - Type 2 diabetes mellitus with unspecified complications (10) Hypertension Code(s): I10 - ESSENTIAL (PRIMARY) HYPERTENSION Status: Chronic Qualifiers: Hypertension type: essential hypertension Qualified Code(s): I10 - Essential (primary) hypertension - Plan echo results pending -: is diuresing well, 4055ml last 24 hrs -: on lasix, toprol xl and valsartan -: dc plan in am if stable -: counselled reg alc abuse * . Review of Systems - Medications/Allergies Allergies/Adverse Reactions: Allergies Allergy/AdvReac Type Severity Reaction Status Date / Time cephalexin [From Keflex] Allergy Verified 06/05/16 09:49 Medications: Current Medications Acetaminophen (Tylenol) 650 mg PO Q4H PRN PRN Reason: Headache/Fever or Pain Al Hydroxide/Mg Hydroxide (Maalox) 30 ml PO Q6H PRN PRN Reason: Heartburn or Indigestion Benzonatate (Tessalon) 100 mg PO Q4H PRN PRN Reason: Cough Dextrose/Water (Dextrose 50%) 25 gm SLOW IVP PRN PRN PRN Reason: Hypoglycemia Docusate Sodium (Colace) 100 mg PO BID [facility] Last Admin: 03/07/17 08:25 Dose: 100 mg Famotidine (Pepcid) 20 mg PO BID [facility] Last Admin: 03/07/17 08:25 Dose: 20 mg Furosemide (Lasix) 40 mg SLOW IVP 0600,1400 [facility] Last Admin: 03/07/17 05:06 Dose: 40 mg Glucagon (Glucagon) 1 mg IM PRN PRN PRN Reason: Hypoglycemia Hydralazine HCl (Apresoline) 10 mg SLOW IVP Q4H PRN PRN Reason: Systolic BP > 180 Dextrose/Water (D5w) 1,000 mls @ 0 mls/hr IV .Q0M PRN; As Directed PRN Reason: Hypoglycemia Insulin Human Lispro (Humalog) 0 units SC .MODERATE SLIDING SC PRN PRN Reason: Moderate Correctional Scale Insulin Human Lispro (Humalog) 0 units SC .BEDTIME SLIDING SC PRN PRN Reason: Bedtime Correctional Scale Magnesium Hydroxide (Milk Of Magnesium) 30 ml PO DAILYPRN PRN PRN Reason: Constipation Last Admin: 03/07/17 10:51 Dose: 30 ml Metoprolol Succinate (Toprol Xl) 12.5 mg PO DAILY [facility] Last Admin: 03/07/17 08:25 Dose: 12.5 mg Potassium Chloride (K-Dur) 20 meq PO QAM-WM [facility] Last Admin: 03/07/17 08:25 Dose: 20 meq Valsartan (Diovan) 40 mg PO HS [facility] Last Admin: 03/06/17 20:05 Dose: 40 mg
--- NOTE | 2017-03-07 19:03 | PDOC.CTH ---
Cardiology Progress Note - Subjective He has continued to diurese and feels much better. He no longer is SOB when walking around. - Objective Vital Signs Temp Pulse Pulse Pulse Resp BP BP 03/07/17 16:12 98.6 F 87 18 03/07/17 12:10 98.8 F 88 18 03/07/17 09:16 103 H 88 148/63 H 125/60 03/07/17 08:15 98.6 F 91 20 BP BP Pulse Ox Pulse Ox Pulse Ox 03/07/17 16:12 148/69 H 96 03/07/17 12:10 137/67 93 L 03/07/17 09:16 99 93 L 03/07/17 08:15 148/69 H 96 Admit Weight 274 lb 5 oz Weight 266 lb 3.2 oz 03/06/17 03/07/17 03/08/17 06:59 06:59 06:59 Intake Total 1690 1340 970 Output Total 3440 4055 1080 Balance -9190 -7033 - Physical Examination General/Neuro: alert & oriented x3, NAD Neck: no JVD present Lungs: unlabored respirations Heart: RRR Abdomen: NT/ND Extremities: + edema B (1+) - Telemetry Telemetry Rhythm: NSR - Labs Result Diagrams: 03/07/17 05:22 03/06/17 04:51 Troponin/CKMB CK-MB (CK-2) 9.2 ng/mL (0-6.6) H* 03/04/17 14:51 Troponin I 0.016 ng/mL (< 0.028) 03/04/17 21:39 - Assessment/Plan 1. Acute RV dysfunction. 2. Sleep apnea 3. Obesity 4. Hyponatremia, likely dilutional 5. S/P bioprosthetic AVR 6. Abnormal LFT's likely related to congestion. PLAN: - Continue IV diuresis. - Home soon.
[2017-03-07] MEDS: Valsartan 80 MG TAB PO SCH (20:34)
[2017-03-08] MEDS: Furosemide 40 MG/4 ML VIAL SLOW IVP SCH (05:57)
[2017-03-08] MEDS: Potassium Chloride 20 MEQ TAB PO SCH (08:36)
[2017-03-08] MEDS: Docusate 100 MG CAP PO SCH (08:37)
[2017-03-08] MEDS: Famotidine 20 MG TAB PO SCH (08:37)
[2017-03-08 08:56] LABS: Anion Gap 14 mmol/L (10-20); BUN (Urea Nitrogen) 8 mg/dL (8.4-25.7); Calc. Creatinine Clearance 167 mL/min (70-130); Carbon Dioxide 28 mmol/L (23-31); Chloride 92 mmol/L (98-107); Estimated GFR-MDRD Greater than 90; Glucose 107 mg/dL (80-115); Potassium 3.7 mmol/L (3.5-5.1); Sodium 130 mmol/L (136-145)
--- NOTE | 2017-03-08 11:40 | PDOC.PN ---
- Subjective Encounter Start Date: 03/08/17 Encounter Start Time: 07:45 Subjective: feels better, is amb in room and hallway -: no palp or chest pain - Objective Resuscitation Status: Resuscitation Status FULL:Full Resuscitation MAR Reviewed: Yes Vital Signs & Weight: Vital Signs (12 hours) Temp Pulse Resp BP Pulse Ox 03/08/17 08:00 99.4 F 92 16 137/63 97 03/08/17 03:09 97.5 F L 85 16 149/71 H 93 L 03/08/17 00:00 98 F 88 16 139/64 92 L Weight Admit Weight 274 lb 5 oz Weight 258 lb I&O: 03/07/17 03/08/17 03/09/17 06:59 06:59 06:59 Intake Total 1340 1450 Output Total 0425 6628 Balance -0819 -5199 Result Diagrams: 03/07/17 05:22 03/08/17 08:21 Additional Labs: Accuchecks 03/08/17 03/08/17 03/07/17 11:20 05:50 20:46 POC Glucose 98 101 96 03/07/17 03/07/17 17:24 11:42 POC Glucose 83 97 Phys Exam - Physical Examination HEENT: PERRLA, moist MMs Neck: no JVD, supple Respiratory: no wheezing, no rales Cardiovascular: RRR, no significant murmur Gastrointestinal: soft, non-tender, positive bowel sounds Musculoskeletal: no edema, pulses present Neurological: non-focal, moves all 4 limbs Psychiatric: A&O x 3 Dx/Plan (1) Acute on chronic diastolic (congestive) heart failure Code(s): I50.33 - ACUTE ON CHRONIC DIASTOLIC (CONGESTIVE) HEART FAILURE Status : Acute (2) CAD (coronary artery disease) Code(s): I25.10 - ATHSCL HEART DISEASE OF [place] CORONARY ARTERY W/O ANG PCTRS Status: Chronic Qualifiers: Coronary Disease-Associated Artery/Lesion type: [place] artery [place] vs. transplanted heart: [place] heart Associated angina: without angina Qualified Code(s): I25.10 - Atherosclerotic heart disease of [place] coronary artery without angina pectoris (3) Alcohol abuse Code(s): F10.10 - ALCOHOL ABUSE, UNCOMPLICATED Status: Chronic (4) Hyponatremia Code(s): E87.1 - HYPO-OSMOLALITY AND HYPONATREMIA Status: Acute Comment: sec to beer abuse (5) chronic macrocytic anemia Status: Chronic (6) Obesity (BMI 30-39.9) Code(s): E66.9 - OBESITY, UNSPECIFIED Status: Chronic (7) Thrombocytopenia Code(s): D69.6 - THROMBOCYTOPENIA, UNSPECIFIED Status: Chronic (8) Aortic stenosis Code(s): I35.0 - NONRHEUMATIC AORTIC (VALVE) STENOSIS Status: Chronic Comment: h/o bioprosthetic aortic valve (9) Diabetes type 2, controlled Code(s): E11.9 - TYPE 2 DIABETES MELLITUS WITHOUT COMPLICATIONS Status: Chronic Qualifiers: Diabetes mellitus complication status: with unspecified complications Diabetes mellitus intermediate school teacher insulin use: without intermediate school teacher use Qualified Code( s): E11.8 - Type 2 diabetes mellitus with unspecified complications (10) Hypertension Code(s): I10 - ESSENTIAL (PRIMARY) HYPERTENSION Status: Chronic Qualifiers: Hypertension type: essential hypertension Qualified Code(s): I10 - Essential (primary) hypertension - Plan hemostable, has diuresed well -: echo done on is still pending -: may dc home if ok with cardiology -: counselled reg alc abuse * .
[2017-03-08 13:54] VITALS: BP 141/67; TEMP 98.3
--- NOTE | 2017-03-08 19:57 | DIS ---
DATE OF ADMISSION: 03/04/2017 DATE OF DISCHARGE: 03/08/2017 DISCHARGE DISPOSITION: To home. PRIMARY DISCHARGE DIAGNOSES: Acute on chronic congestive heart failure exacerbation with diastolic d ysfunction, coronary artery disease, alcohol abuse with thrombocytopenia, macrocytic anemia, obesity, history of bioprosthetic aortic valve, diabetes mellitus type 2, hypertension. PROCEDURES DONE DURING HOSPITALIZATION: Echo with 2D Doppler showed EF of 60-65%, bioprosthetic aort ic valve is in place with peak gradient of 28 mm and mean gradient of 14 mm, aortic valve area was 2 sq cm. Ultrasound venous Doppler of lower extremities done showed no evidence of DVT. Ultrasound of right upper quadrant done showed no evidence of gallstones or biliary obstruction. There was modera te splenomegaly and ascites which may reflect portal venous hypertension. White count of 6, H&H 11 a nd 32, platelet count is 67, MCV is 96. Discharge BUN and creatinine is 8 and 0.7. BNP was 936 on t he day of admission. DISCHARGE MEDICATIONS: Lasix 40 mg p.o. daily, metformin 500 mg p.o. twice daily, Toprol-XL 50 mg p. o. daily, valsartan 160 mg p.o. daily, albuterol inhaler q.6 hourly p.r.n. ALLERGIES: KEFLEX. INPATIENT CONSULTS: Dr. Barnett for Cardiology. DISCHARGE PLAN: Patient to follow up with Dr. Garcia as advised and primary care physician in 1 week . BRIEF COURSE DURING HOSPITALIZATION: Patient initially came in with complaints of shortness of breat h and feeling weak. He has had generalized edema with worsening lower extremity edema as well with 2 1-pound weight gain over the last few weeks. Patient was essentially admitted for acute on chronic C HF exacerbation with diastolic dysfunction. He was gently diuresed during his stay here. The patien t also revealed that he drinks 4-6 beers on every other day and was counseled regarding the same. Shalom varshajacinto has responded well with diuresis. He has lost nearly 16 pounds and is comfortable ambulating. He has ambulated nearly 400 feet without oxygen. He needs followup with Dr. Garcia [facility].
[2017-03-09] MEDS ORDERED: Furosemide 40 MG TAB PO SCH (07:30)
== END 2017-03-08 14:55 | disposition home or self-care (01) | DRG 292 ==
LOC: ERS 14:18 → 2NO 16:39
PROVIDERS: ADMIT Internal Medicine; ATTEND Internal Medicine
DX: I11.0 Hypertensive heart disease with heart failure (principal); E87.1 Hypo-osmolality and hyponatremia; D69.59 Other secondary thrombocytopenia; K76.6 Portal hypertension; E83.42 Hypomagnesemia; R18.8 Other ascites; I50.33 Acute on chronic diastolic (congestive) heart failure; D53.9 Nutritional anemia, unspecified; E11.9 Type 2 diabetes mellitus without complications; Z95.2 Presence of prosthetic heart valve; E66.9 Obesity, unspecified; F10.10 Alcohol abuse, uncomplicated; I25.10 Atherosclerotic heart disease of native coronary artery without angina pectoris; Z68.37 Body mass index [BMI] 37.0-37.9, adult; I50.813 Acute on chronic right heart failure; G47.30 Sleep apnea, unspecified; Z87.891 Personal history of nicotine dependence
CPT/HCPCS: 36415; 36416; 71045; 71046; 76705; 80048; 80053; 81003; 81015; 82533; 82550; 82553; 83735; 83880; 83930; 83935; 84100; 84300; 84443; 84484; 85025; 93005; 93306; 93798; 93970; 94760; 96374; A4216; J1940; J3475; J7050

== ENCOUNTER 2017-05-18 10:58 | Inpatient (IN) | payer OTHER ==
[2017-05-18] MEDS ORDERED: Acetaminophen 500 MG TAB ONE (11:31)
[2017-05-18] MEDS ORDERED: Piperacillin/Tazobactam 4.5 GM in Sodium Chloride 0.9% 100 ML IVPB ONE (11:45)
[2017-05-18] MEDS ORDERED: Lidocaine 1% w/Epinephrine 1:100K 20 ML VIAL ONE (12:15)
--- NOTE | 2017-05-18 12:37 | RAD ---
FRONTAL VIEW CHEST: INDICATIONS: Dyspnea. COMPARISON: 03/04/2017 FINDINGS: Postoperative sternotomy change again seen with an enlarged cardiomediastinal silhouette. No lobar c onsolidation, effusion, or discrete pneumothorax. IMPRESSION: 1. Stable postoperative chest. 2. No lobar consolidation. POS: [facility]
--- NOTE | 2017-05-18 12:39 | CT ---
HEAD CT NONCONTRAST: CLINICAL HISTORY: Fall from bed. Altered mental status. Head injury. FINDINGS: There is patient motion, which produces intracranial streak artifact. There is no obvious intracrani al hemorrhage, mass effect, midline shift, or ventriculomegaly. A right frontal scalp hematoma is pr esent. There is no depressed calvarial fracture or pneumocephalus. IMPRESSION: 1. No acute intracranial hemorrhage or mass effect. 2. Right frontal scalp hematoma. POS: H
[2017-05-18 12:42] LABS: INR-International Normal Ratio 1.7; Prothrombin Time 20.3 SEC (12.0-14.7)
--- NOTE | 2017-05-18 12:42 | CT ---
CT CERVICAL SPINE WITHOUT CONTRAST: HISTORY: Fall from bed with neck pain. COMPARISON: None. TECHNIQUE: Multiple contiguous axial images were obtained in a CT of the cervical spine without contrast. Sagit lamonte and coronal reformats were performed. FINDINGS: There are severe degenerative changes in the cervical spine with intervertebral disk space narrowing and osteophyte formation. The vertebral bodies demonstrate normal height and alignment without acute fracture or subluxation. No prevertebral soft tissue swelling is seen. The posterior facets are well aligned. Normal alignment of the skull base with the cervical spine is seen. Calcifications are seen in the carotid arteries. Emphysematous changes are seen in the lung apices. IMPRESSION: Degenerative changes of the cervical spine without acute osseous abnormality. POS: [facility]
[2017-05-18 12:43] LABS: PTT 41.8 SEC (22.9-36.1)
[2017-05-18 12:53] LABS: ALT (SGPT) 33 U/L (8-55); AST (SGOT) 66 U/L (5-34); Albumin 2.9 g/dL (3.4-4.8); Alkaline Phosphatase 185 U/L (40-150); Anion Gap 12 mmol/L (10-20); BUN (Urea Nitrogen) 14 mg/dL (8.4-25.7); Bilirubin, Total 1.9 mg/dL (0.2-1.2); Calc. Creatinine Clearance 0 mL/min (70-130); Calcium 8.3 mg/dL (7.8-10.44); Carbon Dioxide 19 mmol/L (23-31); Chloride 101 mmol/L (98-107); Estimated GFR-MDRD Greater than 90; Globulin 4.4 g/dL (2.4-3.5); Glucose 140 mg/dL (80-115); Potassium 4.4 mmol/L (3.5-5.1); Protein, Total 7.3 g/dL (5.8-8.1); Sodium 128 mmol/L (136-145)
[2017-05-18 12:54] LABS: Band 18 % (5-11); Hemoglobin 10.4 g/dL (14.0-18.0); Lymphocytes 3 % (21-51); MDiff Complete? YES; Mean Corpuscular HGB CONC 33.5 g/dL (32.0-36.0); Mean Corpuscular Hemoglobin 30.8 pg (27.0-31.0); Mean Corpuscular Volume 92.2 fl (80.0-94.0); Mean Platelet Volume 8.3 fL (7.4-10.4); Monocytes 5 % (0-10); Neutrophil 74 % (42-75); PLT Morphology Comment Appears Decreased; Platelet Count 75 thou/uL (130-400); RBC Distribution Width 15.6 % (11.5-14.5); Red Blood Cell (RBC) Count 3.36 mill/uL (4.70-6.10); White Blood Cell (WBC) Count 14.3 thou/uL (4.8-10.8)
[2017-05-18 12:55] LABS: CKMB 1.1 ng/mL (0-6.6); Troponin I 0.038 ng/mL (< 0.028)
[2017-05-18] MEDS ORDERED: Piperacillin/Tazobactam 4.5 GM VIAL ONE (13:35)
[2017-05-18 14:11] LABS: Bilirubin Small (Negative); Blood, Urine Negative (Negative); Clarity CLEAR (Clear); Glucose, Urine (Dipstick) Negative (Negative); Leukocyte Trace (Negative); Nitrite Negative (Negative); Protein, Urine (Dipstick) 30 mg/dL (Neg-Trace); Specific Gravity, Urine 1.016 (1.002-1.036); pH, Urine 7.5 (5.0-9.0)
[2017-05-18 14:14] LABS: Bacteria/HPF None Seen HPF (None Seen); Hyaline Casts/LPF NONE SEEN LPF (0-3 Hyaline); RBC/HPF None Seen HPF (0-3); Squamous Epithelial 0-3 HPF (0-3); WBC/HPF 0-3 HPF (0-3)
[2017-05-18] MEDS ORDERED: Dextrose 50% Abboject 50 ML SYRINGE SLOW IVP PRN (14:24)
[2017-05-18] MEDS ORDERED: HumaLOG 300 UNITS/3 ML VIAL SC PRN (14:24)
[2017-05-18] MEDS ORDERED: Dextrose 5% in Water 1,000 ML IV PRN (14:24)
[2017-05-18] MEDS ORDERED: Acetaminophen 325 MG TAB PO PRN (14:45)
[2017-05-18] MEDS ORDERED: Vancomycin HCl 1.25 GM in Sodium Chloride 0.9% 250 ML 250 ML IVPB SCH (15:00)
[2017-05-18] MEDS ORDERED: Vancomycin HCl 1.5 GM in Sodium Chloride 0.9% 250 ML 300 ML IVPB SCH (15:30)
--- NOTE | 2017-05-18 15:48 | ULT ---
ABDOMINAL ULTRASOUND: History: Abdominal pain and abdominal distention. FINDINGS: The images through the gallbladder shows no evidence of gallstones. Gallbladder wall thickness is upp er normal but there is ascites present which would explain the gallbladder wall thickening. Common du ct is not well delineated. There is no evidence of intrahepatic ductal dilatation. Liver is heterogeneous and has somewhat of a nodular appearance. The borders are irregular and findin gs are worrisome for cirrhosis. There is moderate ascites with fluid around the liver and spleen. The spleen is enlarged measuring 13-14 cm. Findings suggest portal hypertension. Aorta and IVC are only partially imaged and appear unremarkable as visualized. The pancreas is mostly obscured. Both kidneys are imaged. Each kidney measures approximately 12 cm length. No hydronephrosi s or renal lesion identified. IMPRESSION: 1. The liver is heterogeneous with irregular margins. No focal mass identified. Findings are consiste nt with cirrhosis. 2. There is splenomegaly. 3. Moderate volume ascites. POS: [facility]
[2017-05-18 16:05] LABS: Troponin I 0.019 ng/mL (< 0.028)
[2017-05-18 16:34] LABS: Lactic Acid 2.9 mmol/L (0.5-2.2)
--- NOTE | 2017-05-18 16:36 | HP ---
PRIMARY CARE PHYSICIAN: Bianca Gibbs D.O. PRESENTING COMPLAINT: Fever. HISTORY OF PRESENT ILLNESS: Mr. Jose Juan Santana is a 61-year-old male. He has a past medical hi story of type 2 diabetes mellitus, hypertension, obesity, aortic stenosis, CAD status post CABG, and CHF. He presents to the hospital today due to fever. He reports feeling unwell throughout yesterday with nonspecific symptoms and around 3:00 a.m. yesterday, he complained of chills to his who ch ecked his temperature and found it to be 103 degrees Fahrenheit. She gave him some Tylenol and he we nt back to bed with reduction of his temperature to about 101 degrees Fahrenheit. This morning, the went outside to call the PCP for an appointment and when she returned to the room, Mr. Manzano had fallen and hit his head, sustaining a laceration to his right forehead. He had no history of cough, shortness of breath, chest pain, diarrhea, or abdominal pain. He denies dysuria, urgency, frequency or hematuria. His only other complaint was abdominal distention, which he noticed had been worse th an yesterday. At the emergency room, he was febrile. His labs revealed leukocytosis. Chemistry prabhu wed hyponatremia and elevated lactic acid. Initial troponin was 0.038 and BNP was 878. Chest x-ray showed no signs of pneumonia and EKG showed no signs of acute ischemia. He was also febrile, tachyca rdic with elevated lactic acid and leukocytosis. He received a small bolus of IV fluids and blood cu ltures were taken. He was started on Zosyn and admitted for sepsis with source still unclear. His u rinalysis had been nonrevealing as well. PAST MEDICAL HISTORY: CHF, type 2 diabetes mellitus, CAD status post CABG, hypertension. PAST SURGICAL HISTORY: Status post hip surgery and CABG. FAMILY HISTORY: Reviewed and noncontributory. SOCIAL HISTORY: Denies smoking cigarettes, alcohol use, also denies illicit drug use. ALLERGIES: CEPHALEXIN. HOME MEDICATIONS: Albuterol sulfate 2 puffs inhaled q.6 hours p.r.n. for shortness of breath, furose mide 40 mg daily, metformin 500 mg b.i.d., metoprolol 100 mg daily, valsartan 160 mg daily. REVIEW OF SYSTEMS: A 12-point review of systems conducted and negative except as stated in HPI. PHYSICAL EXAMINATION: VITAL SIGNS: Stable currently within normal limits. GENERAL: Not in acute distress, lying comfortably in bed. HEENT: Normocephalic. Has a laceration on his right forehead, status post suturing. PERRLA. EOMI. Moist mucous membranes. NECK: Supple, full range of movement, no JVD. RESPIRATORY: Vesicular breath sounds bilaterally with no wheezes, rales or rhonchi. CARDIOVASCULAR: Regular rate and rhythm, S1 and S2 only with systolic murmur. No rubs or gallops. ABDOMEN: Distended. Bowel sounds present. Tympanic to auscultation. No shifting dullness or fluid thrill. No organomegaly. Soft. MUSCULOSKELETAL: No edema. Moves all extremities spontaneously. NEUROLOGIC: Alert and oriented to time, place and person. No focal deficits. SKIN: Warm and well-perfused. No rashes or lesions. PSYCHIATRIC: Normal mood and affect. LABORATORY DATA: As stated in the HPI. IMAGING: An EKG as stated in the HPI. ASSESSMENT AND PLAN: 1. Sepsis, source is still unclear. He has been started on broad-spectrum antibiotics. We will ens ure the fever is controlled and follow up on blood cultures. We will also get a repeat lactate level after he received hydration in the ER. 2. Forehead laceration, status post suturing. We will monitor and ensure dressing changes. 3. Hyponatremia. This is likely a result of his furosemide. We will monitor serum sodium closely. 4. Type 2 diabetes mellitus. He is currently at goal. We will place on sliding scale insulin, diab etic diet, hyperglycemia protocol and fingerstick glucose a.c. and at bedtime. 5. Congestive heart failure with diastolic dysfunction. We will resume his home medication of metop rolol, valsartan, furosemide once confirmed. 6. Coronary artery disease, status post coronary artery bypass graft. He is chest pain free and sta ble. We will resume home medications. 7. Hypertension. Blood pressure is currently at goal. We will monitor blood pressure. Continue hi s home medication. CODE STATUS: FULL CODE.
[2017-05-18 16:45] VITALS: BMI 36.6
[2017-05-18] MEDS ORDERED: Albuterol Sulfate 2.5 mg/3 ml Neb NEB PRN (16:47)
[2017-05-18] MEDS ORDERED: Labetalol HCl 100 MG/20 ML VIAL SLOW IVP PRN (16:48)
[2017-05-18] MEDS: Heparin 5,000 UNITS/ML VIAL SC SCH ×2 (17:48→21:03)
[2017-05-18] MEDS: Ascorbic Acid 500 mg Chewable Tablet PO SCH (17:48)
[2017-05-18] MEDS ORDERED: Piperacillin/Tazobactam 3.375 GM in Sodium Chloride 0.9% 100 ML IVPB SCH (18:00)
[2017-05-18 19:10] LABS: Troponin I 0.026 ng/mL (< 0.028)
[2017-05-18] MEDS: Docusate 100 MG CAP PO SCH (21:03)
[2017-05-19] MEDS: Piperacillin/Tazobactam 3.375 GM in Sodium Chloride 0.9% 100 ML IVPB SCH ×3 (05:34→18:56)
[2017-05-19 06:14] LABS: #Lymphocytes 0.6 thou/uL (1.20-3.40); #Monocytes 0.9 thou/uL (0.11-0.59); #Neutrophils 8.6 thou/uL (1.40-6.50); %Basophils 0.1 % (0.0-1.0); %Eosinophils 0.1 % (0.0-10.0); %Lymphocytes 5.8 % (21.0-51.0); %Monocytes 9.3 % (0.0-10.0); %Neutrophils 84.8 % (42.0-75.0); Hemoglobin 10.3 g/dL (14.0-18.0); Mean Corpuscular HGB CONC 33.1 g/dL (32.0-36.0); Mean Corpuscular Hemoglobin 31.2 pg (27.0-31.0); Mean Corpuscular Volume 94.3 fl (80.0-94.0); Platelet Count 61 thou/uL (130-400); RBC Distribution Width 15.7 % (11.5-14.5); Red Blood Cell (RBC) Count 3.31 mill/uL (4.70-6.10); White Blood Cell (WBC) Count 10.2 thou/uL (4.8-10.8)
[2017-05-19 06:29] LABS: Anion Gap 14 mmol/L (10-20); BUN (Urea Nitrogen) 19 mg/dL (8.4-25.7); Calc. Creatinine Clearance 162 mL/min (70-130); Calcium 8.4 mg/dL (7.8-10.44); Carbon Dioxide 21 mmol/L (23-31); Chloride 101 mmol/L (98-107); Estimated GFR-MDRD Greater than 90; Glucose 107 mg/dL (80-115); Potassium 4.5 mmol/L (3.5-5.1); Sodium 131 mmol/L (136-145)
[2017-05-19] MEDS: Ascorbic Acid 500 mg Chewable Tablet PO SCH ×3 (07:45→18:56)
[2017-05-19] MEDS ORDERED: Valsartan 80 MG TAB PO SCH (09:00)
--- NOTE | 2017-05-19 12:11 | PDOC.PN ---
- Subjective Encounter Start Date: 05/19/17 Encounter Start Time: 11:00 Subjective: No new complaints -: No acute events overnight. - Objective Resuscitation Status: Resuscitation Status FULL:Full Resuscitation MAR Reviewed: Yes Vital Signs & Weight: Vital Signs (12 hours) Temp Pulse Resp BP Pulse Ox 05/19/17 04:00 98.3 F 86 18 127/68 94 L Weight Weight 270 lb 6 oz I&O: 05/18/17 05/19/17 05/20/17 06:59 06:59 06:59 Intake Total 360 Balance 360 Result Diagrams: 05/20/17 04:10 05/20/17 04:10 Additional Labs: Accuchecks 05/19/17 05/19/17 10:15 05:54 POC Glucose 150 H 117 H Phys Exam - Physical Examination Constitutional: NAD HEENT: PERRLA, moist MMs, sclera anicteric, oral pharynx no lesions Neck: no JVD, supple, full ROM Respiratory: no wheezing, no rales, no rhonchi, clear to auscultation bilateral Cardiovascular: RRR, no significant murmur, no rub Gastrointestinal: soft, non-tender, positive bowel sounds distended Musculoskeletal: no edema, pulses present Neurological: non-focal, moves all 4 limbs Psychiatric: normal affect, A&O x 3 Skin: no rash, normal turgor Dx/Plan (1) Sepsis Code(s): A41.9 - SEPSIS, UNSPECIFIED ORGANISM Status: Acute Comment: Improving with broad spectrum antibiotics. Blood cultures grew gram + cocci. WIll f/u cultures. (2) Chronic diastolic CHF (congestive heart failure), NYHA class 3 Code(s): I50.32 - CHRONIC DIASTOLIC (CONGESTIVE) HEART FAILURE Status: Chronic Comment: Not in acute exacerbation. Will continue home regimen. Started on spironolactone. (3) Hyponatremia Code(s): E87.1 - HYPO-OSMOLALITY AND HYPONATREMIA Status: Acute Comment: Likely 2/2 potomania/cirrhosis. Improving. (4) Aortic stenosis Code(s): I35.0 - NONRHEUMATIC AORTIC (VALVE) STENOSIS Status: Chronic Qualifiers: Cardiac valve disease etiology: etiology unspecified Qualified Code(s): I35.0 - Nonrheumatic aortic (valve) stenosis Comment: h/o bioprosthetic aortic valve (5) CAD (coronary artery disease) Code(s): I25.10 - ATHSCL HEART DISEASE OF [place] CORONARY ARTERY W/O ANG PCTRS Status: Chronic Qualifiers: Coronary Disease-Associated Artery/Lesion type: [place] artery [place] vs. transplanted heart: [place] heart Associated angina: without angina Qualified Code(s): I25.10 - Atherosclerotic heart disease of [place] coronary artery without angina pectoris Comment: Stable. Chest pain free. Will continue home meds. 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 Continue current regimen. (7) Hypertension Code(s): I10 - ESSENTIAL (PRIMARY) HYPERTENSION Status: Chronic Qualifiers: Hypertension type: essential hypertension Qualified Code(s): I10 - Essential (primary) hypertension Comment: Controlled and at goal. 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 Will monitor. (9) Cirrhosis of liver Code(s): K74.60 - UNSPECIFIED CIRRHOSIS OF LIVER Status: Chronic Comment: Likely alcoholic cirrhosis. Has moderate ascites on Abd US. On furosemide and spironolactone. Will consult GI. (10) Fecal occult blood test positive Status: Acute Comment: Patient had a forehead laceration. Will trend hemoglobin. Hold anticoagulation, ASA. Place on SCds. (11) Laceration of forehead Code(s): S01.81XA - LACERATION W/O FOREIGN BODY OF OTH PART OF HEAD, INIT ENCNTR Status: Acute Qualifiers: Encounter type: subsequent encounter Qualified Code(s): S01.81XD - Laceration without foreign body of other part of head, subsequent encounter Comment: Monitor for any mentation changes. (12) Alcohol abuse Code(s): F10.10 - ALCOHOL ABUSE, UNCOMPLICATED Status: Chronic - Plan cont current plan of care, continue antibiotics, PT/OT, out of bed/ambulate, DVT proph w/SCDs * . Review of Systems - Medications/Allergies Allergies/Adverse Reactions: Allergies Allergy/AdvReac Type Severity Reaction Status Date / Time cephalexin [From Keflex] Allergy Verified 06/05/16 09:49 Medications: Current Medications Acetaminophen (Tylenol) 650 mg PO Q4H PRN PRN Reason: Headache/Fever or Pain Albuterol Sulfate (Ventolin) 2.5 mg NEB [id number] PRN PRN Reason: Wheezing Ascorbic Acid (Vitamin C) 500 mg PO [facility] Last Admin: 05/18/17 17:48 Dose: 500 mg Aspirin (Aspirin Chewable) 81 mg PO [facility] Last Admin: 05/18/17 17:53 Dose: Not Given Dextrose/Water (Dextrose 50%) 25 gm SLOW IVP PRN PRN PRN Reason: Hypoglycemia Docusate Sodium (Colace) 100 mg PO BID [facility] Last Admin: 05/18/17 21:03 Dose: 100 mg Furosemide (Lasix) 40 mg PO DAILY-[facility] Glucagon (Glucagon) 1 mg IM PRN PRN PRN Reason: Hypoglycemia Heparin Sodium (Porcine) (Heparin) 5,000 units SC TID [facility] Last Admin: 05/18/17 21:03 Dose: 5,000 units Dextrose/Water (D5w) 1,000 mls @ 0 mls/hr IV .Q0M PRN; As Directed PRN Reason: Hypoglycemia Vancomycin HCl 2 gm/ Sodium (Chloride) 500 mls @ 250 mls/hr IVPB 0500,1700 [facility] Last Admin: 05/19/17 07:11 Dose: 500 mls Piperacillin Sod/Tazobactam (Sod 3.375 gm/ Sodium Chloride) 100 mls @ 200 mls/ hr IVPB 0400,1000,1600,2200 [facility] Last Admin: 05/19/17 05:34 Dose: 100 mls Insulin Human Lispro (Humalog) 0 units SC .MILD SLIDING SCALE PRN PRN Reason: Mild Correctional Scale Labetalol HCl (Normodyne) 10 mg SLOW IVP Q4H PRN PRN Reason: SBP Greater Than 180 Metoprolol Succinate (Toprol Xl) 50 mg PO DAILY [facility] Miscellaneous Medication (Pharmacy To Dose) 1 each IVPB PRN PRN PRN Reason: Pharmacy to dose Valsartan (Diovan) 160 mg PO DAILY [facility]
[2017-05-19] MEDS: Heparin 5,000 UNITS/ML VIAL SC SCH ×3 (12:29→21:30)
[2017-05-19] MEDS: Furosemide 40 MG TAB PO SCH (12:30)
[2017-05-19] MEDS: Valsartan 80 MG TAB PO SCH (12:30)
[2017-05-19] MEDS: Docusate 100 MG CAP PO SCH ×2 (12:32→21:30)
[2017-05-20] MEDS: Piperacillin/Tazobactam 3.375 GM in Sodium Chloride 0.9% 100 ML IVPB SCH ×5 (01:40→21:16)
[2017-05-20 05:25] LABS: Vancomycin, Trough 15.1 ug/mL
[2017-05-20 05:28] LABS: Anion Gap 9 mmol/L (10-20); BUN (Urea Nitrogen) 24 mg/dL (8.4-25.7); Calc. Creatinine Clearance 180 mL/min (70-130); Carbon Dioxide 23 mmol/L (23-31); Chloride 103 mmol/L (98-107); Estimated GFR-MDRD Greater than 90; Glucose 108 mg/dL (80-115); Potassium 4.3 mmol/L (3.5-5.1); Sodium 131 mmol/L (136-145)
[2017-05-20 05:31] LABS: Band 13 % (5-11); Hemoglobin 8.6 g/dL (14.0-18.0); Lymphocytes 22 % (21-51); MDiff Complete? YES; Mean Corpuscular HGB CONC 34.1 g/dL (32.0-36.0); Mean Corpuscular Hemoglobin 32.1 pg (27.0-31.0); Mean Corpuscular Volume 94.3 fl (80.0-94.0); Mean Platelet Volume 8.9 fL (7.4-10.4); Monocytes 6 % (0-10); Neutrophil 59 % (42-75); PLT Morphology Comment Appears Decreased; Platelet Count 54 thou/uL (130-400); RBC Distribution Width 15.5 % (11.5-14.5); Red Blood Cell (RBC) Count 2.69 mill/uL (4.70-6.10); White Blood Cell (WBC) Count 7.2 thou/uL (4.8-10.8)
[2017-05-20] MEDS: Furosemide 40 MG TAB PO SCH (09:03)
[2017-05-20] MEDS: Ascorbic Acid 500 mg Chewable Tablet PO SCH ×3 (09:03→17:06)
[2017-05-20] MEDS: Valsartan 80 MG TAB PO SCH (09:03)
[2017-05-20] MEDS: Heparin 5,000 UNITS/ML VIAL SC SCH (09:04)
[2017-05-20] MEDS: Docusate 100 MG CAP PO SCH ×2 (09:04→21:10)
--- NOTE | 2017-05-20 12:02 | PDOC.PN ---
- Subjective Encounter Start Date: 05/20/17 Encounter Start Time: 12:41 Subjective: No complaints today. -: No acute events overnight. - Objective Resuscitation Status: Resuscitation Status FULL:Full Resuscitation MAR Reviewed: Yes Vital Signs & Weight: Vital Signs (12 hours) Temp Pulse Resp BP Pulse Ox 05/20/17 11:25 97.7 F 71 16 124/76 100 05/20/17 08:00 98.1 F 81 16 117/56 L 95 05/20/17 04:00 98.4 F 82 20 108/55 L 98 Weight Weight 270 lb 6 oz I&O: 05/19/17 05/20/17 05/21/17 06:59 06:59 06:59 Intake Total 360 1080 Output Total 475 Balance 360 605 Result Diagrams: 05/20/17 04:10 05/20/17 04:10 Additional Labs: Accuchecks 05/20/17 05/20/17 05/20/17 11:35 10:29 06:08 POC Glucose 87 105 120 H 05/19/17 05/19/17 20:41 18:08 POC Glucose 113 H 100 Phys Exam - Physical Examination Constitutional: NAD HEENT: PERRLA, moist MMs, TM's clear Neck: no JVD, full ROM Respiratory: no wheezing, no rales, no rhonchi, clear to auscultation bilateral Cardiovascular: RRR, no significant murmur, no rub Gastrointestinal: soft, non-tender, positive bowel sounds distended but soft Musculoskeletal: no edema, pulses present Neurological: non-focal, moves all 4 limbs Psychiatric: normal affect, A&O x 3 Skin: no rash, normal turgor Dx/Plan (1) Sepsis Code(s): A41.9 - SEPSIS, UNSPECIFIED ORGANISM Status: Acute Comment: Improving with broad spectrum antibiotics. Blood cultures grew gram + cocci. Sensitivities pending. (2) Chronic diastolic CHF (congestive heart failure), NYHA class 3 Code(s): I50.32 - CHRONIC DIASTOLIC (CONGESTIVE) HEART FAILURE Status: Chronic Comment: Not in acute exacerbation. Continue current regimen. (3) Hyponatremia Code(s): E87.1 - HYPO-OSMOLALITY AND HYPONATREMIA Status: Acute Comment: Likely 2/2 potomania/cirrhosis. Improving. (4) Aortic stenosis Code(s): I35.0 - NONRHEUMATIC AORTIC (VALVE) STENOSIS Status: Chronic Qualifiers: Cardiac valve disease etiology: etiology unspecified Qualified Code(s): I35.0 - Nonrheumatic aortic (valve) stenosis Comment: h/o bioprosthetic aortic valve (5) CAD (coronary artery disease) Code(s): I25.10 - ATHSCL HEART DISEASE OF [place] CORONARY ARTERY W/O ANG PCTRS Status: Chronic Qualifiers: Coronary Disease-Associated Artery/Lesion type: [place] artery [place] vs. transplanted heart: [place] heart Associated angina: without angina Qualified Code(s): I25.10 - Atherosclerotic heart disease of [place] coronary artery without angina pectoris Comment: Stable. Chest pain free. Will continue home meds. ASA being held 2/2 occult blood + (6) Diabetes type 2, controlled Code(s): E11.9 - TYPE 2 DIABETES MELLITUS WITHOUT COMPLICATIONS Status: Chronic Qualifiers: Diabetes mellitus intermediate insulin use: without intermediate use Diabetes mellitus complication status: with unspecified complications Qualified Code(s) : E11.8 - Type 2 diabetes mellitus with unspecified complications Comment: Controlled. Continue current regimen. (7) Hypertension Code(s): I10 - ESSENTIAL (PRIMARY) HYPERTENSION Status: Chronic Qualifiers: Hypertension type: essential hypertension Qualified Code(s): I10 - Essential (primary) hypertension Comment: Controlled and at goal. 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 Will monitor. (9) Cirrhosis of liver Code(s): K74.60 - UNSPECIFIED CIRRHOSIS OF LIVER Status: Chronic Comment: Likely alcoholic cirrhosis. Has moderate ascites on Abd US. On furosemide and spironolactone. Will consult GI. (10) Fecal occult blood test positive Status: Acute Comment: Patient had a forehead laceration. Will trend hemoglobin. Hold anticoagulation, ASA. Place on SCds. (11) Laceration of forehead Code(s): S01.81XA - LACERATION W/O FOREIGN BODY OF OTH PART OF HEAD, INIT ENCNTR Status: Acute Qualifiers: Encounter type: subsequent encounter Qualified Code(s): S01.81XD - Laceration without foreign body of other part of head, subsequent encounter Comment: Monitor for any mentation changes. (12) Alcohol abuse Code(s): F10.10 - ALCOHOL ABUSE, UNCOMPLICATED Status: Chronic - Plan * . Review of Systems - Medications/Allergies Allergies/Adverse Reactions: Allergies Allergy/AdvReac Type Severity Reaction Status Date / Time cephalexin [From Keflex] Allergy Verified 06/05/16 09:49 Medications: Current Medications Acetaminophen (Tylenol) 650 mg PO Q4H PRN PRN Reason: Headache/Fever or Pain Albuterol Sulfate (Ventolin) 2.5 mg NEB [id number] PRN PRN Reason: Wheezing Ascorbic Acid (Vitamin C) 500 mg PO [facility] Last Admin: 05/20/17 09:03 Dose: 500 mg Dextrose/Water (Dextrose 50%) 25 gm SLOW IVP PRN PRN PRN Reason: Hypoglycemia Docusate Sodium (Colace) 100 mg PO BID [facility] Last Admin: 05/20/17 09:04 Dose: Not Given Furosemide (Lasix) 40 mg PO DAILY-[facility] Last Admin: 05/20/17 09:03 Dose: 40 mg Glucagon (Glucagon) 1 mg IM PRN PRN PRN Reason: Hypoglycemia Dextrose/Water (D5w) 1,000 mls @ 0 mls/hr IV .Q0M PRN; As Directed PRN Reason: Hypoglycemia Vancomycin HCl 2 gm/ Sodium (Chloride) 500 mls @ 250 mls/hr IVPB 0500,1700 [facility] Last Admin: 05/20/17 04:24 Dose: 500 mls Piperacillin Sod/Tazobactam (Sod 3.375 gm/ Sodium Chloride) 100 mls @ 200 mls/ hr IVPB 0400,1000,1600,2200 [facility] Last Admin: 05/20/17 09:03 Dose: 100 mls Insulin Human Lispro (Humalog) 0 units SC .MILD SLIDING SCALE PRN PRN Reason: Mild Correctional Scale Labetalol HCl (Normodyne) 10 mg SLOW IVP Q4H PRN PRN Reason: SBP Greater Than 180 Metoprolol Succinate (Toprol Xl) 50 mg PO DAILY [facility] Last Admin: 05/20/17 09:03 Dose: 50 mg Miscellaneous Medication (Pharmacy To Dose) 1 each IVPB PRN PRN PRN Reason: Pharmacy to dose Sodium Chloride (Flush - Normal Saline) 10 ml IVF Q12HR [facility] Sodium Chloride (Flush - Normal Saline) 10 ml IVF PRN PRN PRN Reason: Saline Flush Spironolactone (Aldactone) 100 mg PO [facility] Valsartan (Diovan) 160 mg PO DAILY [facility] Last Admin: 05/20/17 09:03 Dose: 160 mg
[2017-05-20 13:15] LABS: Hemoglobin 8.8 g/dL (14.0-18.0)
--- NOTE | 2017-05-20 15:02 | EKG ---
Test Reason : Blood Pressure : / mmHG Vent. Rate : 095 BPM Atrial Rate : 095 BPM P-R Int : 178 ms QRS Dur : 142 ms QT Int : 410 ms P-R-T Axes : 064 037 060 degrees QTc Int : 515 ms Normal sinus rhythm Possible Left atrial enlargement Right bundle branch block Abnormal ECG Confirmed by NERY RAMIREZ ([id number]), book or script editor LANI HURTADO ([id number]) on 05/20/2017 3:00:41 PM Referred By: Confirmed By:NERY RAMIREZ
[2017-05-20 19:48] LABS: Hemoglobin 8.2 g/dL (14.0-18.0)
[2017-05-21] MEDS: Piperacillin/Tazobactam 3.375 GM in Sodium Chloride 0.9% 100 ML IVPB SCH ×4 (03:10→21:03)
[2017-05-21 04:56] LABS: #Eosinphils 0.1 thou/uL (0.0-0.7); #Lymphocytes 1.3 thou/uL (1.20-3.40); #Monocytes 0.9 thou/uL (0.11-0.59); #Neutrophils 4.1 thou/uL (1.40-6.50); %Basophils 0.7 % (0.0-1.0); %Eosinophils 1.5 % (0.0-10.0); %Lymphocytes 19.7 % (21.0-51.0); %Monocytes 13.8 % (0.0-10.0); %Neutrophils 64.4 % (42.0-75.0); Mean Corpuscular HGB CONC 33.8 g/dL (32.0-36.0); Mean Corpuscular Hemoglobin 31.8 pg (27.0-31.0); Mean Corpuscular Volume 94.2 fl (80.0-94.0); Mean Platelet Volume 8.6 fL (7.4-10.4); Platelet Count 58 thou/uL (130-400); RBC Distribution Width 15.5 % (11.5-14.5); White Blood Cell (WBC) Count 6.4 thou/uL (4.8-10.8)
[2017-05-21 04:58] LABS: Anion Gap 8 mmol/L (10-20); BUN (Urea Nitrogen) 17 mg/dL (8.4-25.7); Calc. Creatinine Clearance 180 mL/min (70-130); Calcium 7.8 mg/dL (7.8-10.44); Carbon Dioxide 24 mmol/L (23-31); Chloride 103 mmol/L (98-107); Estimated GFR-MDRD Greater than 90; Glucose 88 mg/dL (80-115); Potassium 3.8 mmol/L (3.5-5.1); Sodium 131 mmol/L (136-145)
[2017-05-21] MEDS: Ascorbic Acid 500 mg Chewable Tablet PO SCH ×3 (06:27→16:15)
[2017-05-21] MEDS: Furosemide 40 MG TAB PO SCH (06:27)
[2017-05-21] MEDS: Spironolactone 100 MG TAB PO SCH (08:51)
[2017-05-21] MEDS: Docusate 100 MG CAP PO SCH ×2 (08:52→21:05)
[2017-05-21] MEDS: Valsartan 80 MG TAB PO SCH (08:53)
--- NOTE | 2017-05-21 10:38 | CON ---
DATE OF CONSULTATION: 05/20/2017 REFERRING PHYSICIAN: Nathaniel Baer M.D., [facility]. REASON FOR CONSULTATION: History of black tarry stool and stool guaiac came back positive. HISTORY OF PRESENT ILLNESS: Mr. Gabino Manzano is a 61-year-old obese male hospitalized 2 da ys ago with fever. The patient does see Dr. Gibbs on regular basis. Apparently, as per the patien nhung's , he woke up around 03:00 on early Wednesday morning with fever and feeling cold and having chi lls. She took his temperature and the temperature was 103 degrees Fahrenheit. She gave him two Tyle nol and she went to the bathroom. When she came back, she saw a whole lot of blood in the bed and hi s forehead. It is not very clear whether he fell down or he bumped his head against endtable. It wa s also found he was having some altered mental status. The patient was brought to the ER because of the above reason. In the ER, his temperature was actually normal. The patient's mental status is ac tually slowly, but surely improving. He does have some suturing of the forehead laceration. The pat ient bowel movements. The patient was given some Colace in the hospital and is having multiple stool studies. He has had two stools today and stools are black and tarry as per the nurses. The p atient when I spoke to nurses, they told me the stools were tarry and the guaiac came back posi tive. His blood count had dropped down slightly since admission. The patient had no abdominal pain, no nausea, and no vomiting. The patient was hospitalized in February of 2017 with pedal edema and al so abdominal bloating. He was seen by Dr. Barnett for cardiology evaluation. It was found he has rig ht heart failure. He was given diuretics and was sent home. This admission, the patient again has a bdominal bloating and swelling, and abdominal sonogram shows ascites. The patient also has low plate let count, indicative of possibly underlying liver cirrhosis and hypersplenism. The patient has been seeing Dr. Gibbs for many years. He has never been told to have any liver disease from before. T he patient has no prior history of any hepatitis. The patient does admit to drinking alcohol heavily for nearly about 40 years. The patient used to drink one 6-pack of beer every day and also used to drink lot more over the weekend. Apparently, he has been doing this for nearly 40 years. The patien t underwent aortic valve replacement by Dr. Leonardo 8 months ago. Since his aortic valve replacement, he has stopped drinking completely. He also used to smoke a pack and half cigarettes per day for ma ny years. He quit smoking about 18 months ago. The patient has no prior history of any hematochezia or any melena. No prior history of peptic ulcer disease. He has no relevant history. ALLERGIES: CEPHALEXIN. SOCIAL HISTORY: The patient is . He smoked a pack and half cigarettes per day for 40+ years. He quit smoking 18 months ago. He also was drinking alcohol heavily until 8 months ago. MEDICAL ILLNESSES: 1. Congestive heart failure. 2. Type 2 diabetes mellitus. 3. Aortic valve replacement 8 months ago. 4. Hypertension. SURGERIES: Status post hip surgery and aortic valve replacement. FAMILY HISTORY: Unremarkable. No family history of any cancer, liver disease, heart disease. MEDICATIONS: Medications at the time of admission include albuterol, furosemide, metformin, metoprol ol, valsartan, etc. REVIEW OF SYSTEMS: A ten-point system review: Constitutional: No history of fever. No history of chills. No weight loss. Has good appetite. His exercise tolerance is very good. Respiratory: No history of chronic cough, hemoptysis, dyspnea. Cardiovascular: History of edema in legs and also fr ee fluid in abdomen and also has history of dyspnea. No orthopnea. No PND. No palpitation. Gastro intestinal: As in history of present illness. Genitourinary: No dysuria, hematuria, or frequent ur ination. Musculoskeletal/Endocrine/Hematologic: Nonrelevant. Neuropsychiatric: Unremarkable. PHYSICAL EXAMINATION: GENERAL: The patient is obese, appears comfortable. He has a bandage over the forearm from recent s uturing. He is awake, alert, and communicative. VITAL SIGNS: Stable. His pulse is around 76, blood pressure is 113/70. HEENT: Conjunctivae clear. NECK: Supple. No adenitis or thyromegaly noted. CARDIOVASCULAR SYSTEM: First and second heart sounds normal. He has a systolic murmur. LUNGS: Clear to auscultation. ABDOMEN: Distended, but soft to palpate. Abdomen is nontender. Does have ascites. There is no siddhartha er or spleen palpable. No masses. EXTREMITIES: Reveal no edema. CENTRAL NERVOUS SYSTEM: Grossly within normal limits. LABORATORY DATA: Abdominal sonogram shows ascites. CBC: WBC 11,200, hemoglobin 8.7, hematocrit 28. 9, MCV 76.7. Admission blood count was slightly high at 10. Serum sodium is 136, potassium 3.7, chl oride 96, bicarbonate 27, BUN is 16, creatinine is 0.75. Glucose 107, albumin 3.4. His platelet cou nt is low at 54,000. CLINICAL IMPRESSION: 1. A 61-year-old male with aortic valve replacement and history of congestive heart failur e. The patient did have ascites during last admission and it was felt this as right heart failure. He has history of chronic alcohol abuse for nearly 40 years. He stopped drinking 8 months ago. He h as no prior history of liver disease or any hepatitis. 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 Probably combination of right heart failure and liver cir rhosis. 2. History of melenotic stool and stool guaiac is positive. He did have a mild drop in blood count. 3. Obesity. RECOMMENDATIONS: The patient already had a lunch today and I could do an EGD later on today. I will keep him n.p.o. and plan for EGD tomorrow morning. Also, recommend followup H&H and transfuse if ne cessary.
--- NOTE | 2017-05-21 13:33 | PDOC.PN ---
- Subjective Encounter Start Date: 05/21/17 Encounter Start Time: 13:37 Subjective: No new complaints. Feels much better today. -: no acute events overnight. - Objective Resuscitation Status: Resuscitation Status FULL:Full Resuscitation MAR Reviewed: Yes Vital Signs & Weight: Vital Signs (12 hours) Temp Pulse Resp BP Pulse Ox 05/21/17 11:25 98.6 F 73 16 126/77 100 05/21/17 08:00 98.3 F 75 12 05/21/17 07:05 98.3 F 75 12 121/74 97 05/21/17 04:26 98.3 F 76 19 113/74 97 Weight Weight 270 lb 6 oz I&O: 05/20/17 05/21/17 05/22/17 06:59 06:59 06:59 Intake Total 1080 1150 Output Total 475 420 Balance 605 730 Result Diagrams: 05/21/17 04:36 05/21/17 04:36 Additional Labs: Accuchecks 05/21/17 05/21/17 05/20/17 11:31 06:17 20:58 POC Glucose 96 96 108 05/20/17 16:13 POC Glucose 97 Phys Exam - Physical Examination Constitutional: NAD HEENT: PERRLA, moist MMs, sclera anicteric Neck: no JVD, supple, full ROM Respiratory: no wheezing, no rales, no rhonchi, clear to auscultation bilateral Cardiovascular: RRR, no significant murmur, no rub Gastrointestinal: soft, non-tender, positive bowel sounds Musculoskeletal: no edema, pulses present Neurological: non-focal, moves all 4 limbs Psychiatric: normal affect, A&O x 3 Skin: no rash, normal turgor Dx/Plan (1) Fecal occult blood test positive Status: Acute Comment: Hb stable. Possible GI bleed as Hb dropped as well. GI on board. Scheduled for EGD. Hold anticoagulation, ASA. Place on SCDs. (2) Chronic diastolic CHF (congestive heart failure), NYHA class 3 Code(s): I50.32 - CHRONIC DIASTOLIC (CONGESTIVE) HEART FAILURE Status: Chronic Comment: Not in acute exacerbation. Continue current regimen. (3) Hyponatremia Code(s): E87.1 - HYPO-OSMOLALITY AND HYPONATREMIA Status: Acute Comment: Likely 2/2 potomania/cirrhosis. Improving. (4) Aortic stenosis Code(s): I35.0 - NONRHEUMATIC AORTIC (VALVE) STENOSIS Status: Chronic Qualifiers: Cardiac valve disease etiology: etiology unspecified Qualified Code(s): I35.0 - Nonrheumatic aortic (valve) stenosis Comment: h/o bioprosthetic aortic valve (5) CAD (coronary artery disease) Code(s): I25.10 - ATHSCL HEART DISEASE OF [place] CORONARY ARTERY W/O ANG PCTRS Status: Chronic Qualifiers: Coronary Disease-Associated Artery/Lesion type: [place] artery [place] vs. transplanted heart: [place] heart Associated angina: without angina Qualified Code(s): I25.10 - Atherosclerotic heart disease of [place] coronary artery without angina pectoris Comment: Stable. Chest pain free. Will continue home meds. ASA being held 2/2 occult blood + (6) Diabetes type 2, controlled Code(s): E11.9 - TYPE 2 DIABETES MELLITUS WITHOUT COMPLICATIONS Status: Chronic Qualifiers: Diabetes mellitus director museum or zoo insulin use: without director museum or zoo use Diabetes mellitus complication status: with unspecified complications Qualified Code(s) : E11.8 - Type 2 diabetes mellitus with unspecified complications Comment: Controlled. Continue current regimen. (7) Hypertension Code(s): I10 - ESSENTIAL (PRIMARY) HYPERTENSION Status: Chronic Qualifiers: Hypertension type: essential hypertension Qualified Code(s): I10 - Essential (primary) hypertension Comment: Controlled and at goal. 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 Will monitor. (9) Cirrhosis of liver Code(s): K74.60 - UNSPECIFIED CIRRHOSIS OF LIVER Status: Chronic Comment: Likely alcoholic cirrhosis. Has moderate ascites on Abd US. On furosemide and spironolactone. (10) Laceration of forehead Code(s): S01.81XA - LACERATION W/O FOREIGN BODY OF OTH PART OF HEAD, INIT ENCNTR Status: Acute Qualifiers: Encounter type: subsequent encounter Qualified Code(s): S01.81XD - Laceration without foreign body of other part of head, subsequent encounter Comment: Stable. (11) Alcohol abuse Code(s): F10.10 - ALCOHOL ABUSE, UNCOMPLICATED Status: Chronic (12) Sepsis Code(s): A41.9 - SEPSIS, UNSPECIFIED ORGANISM Status: Resolved Comment: Improving with broad spectrum antibiotics. Blood cultures grew gram + cocci. Sensitivities pending. (13) Gram-positive bacteremia Code(s): R78.81 - BACTEREMIA Status: Acute Comment: Blood culture grew strep oralis. On abx. Repeat cultures ordered. - Plan cont current plan of care, plan discussed w/ family, continue antibiotics, out of bed/ambulate, DVT proph w/SCDs * . Review of Systems - Medications/Allergies Allergies/Adverse Reactions: Allergies Allergy/AdvReac Type Severity Reaction Status Date / Time cephalexin [From Keflex] Allergy Verified 06/05/16 09:49 Medications: Current Medications Acetaminophen (Tylenol) 650 mg PO Q4H PRN PRN Reason: Headache/Fever or Pain Albuterol Sulfate (Ventolin) 2.5 mg NEB [id number] PRN PRN Reason: Wheezing Ascorbic Acid (Vitamin C) 500 mg PO [facility] Last Admin: 05/21/17 12:01 Dose: Not Given Dextrose/Water (Dextrose 50%) 25 gm SLOW IVP PRN PRN PRN Reason: Hypoglycemia Docusate Sodium (Colace) 100 mg PO BID [facility] Last Admin: 05/21/17 08:52 Dose: Not Given Furosemide (Lasix) 40 mg PO DAILY-[facility] Last Admin: 05/21/17 06:27 Dose: 40 mg Glucagon (Glucagon) 1 mg IM PRN PRN PRN Reason: Hypoglycemia Dextrose/Water (D5w) 1,000 mls @ 0 mls/hr IV .Q0M PRN; As Directed PRN Reason: Hypoglycemia Piperacillin Sod/Tazobactam (Sod 3.375 gm/ Sodium Chloride) 100 mls @ 200 mls/ hr IVPB 0400,1000,1600,2200 [facility] Last Admin: 05/21/17 11:43 Dose: 100 mls Insulin Human Lispro (Humalog) 0 units SC .MILD SLIDING SCALE PRN PRN Reason: Mild Correctional Scale Labetalol HCl (Normodyne) 10 mg SLOW IVP Q4H PRN PRN Reason: SBP Greater Than 180 Metoprolol Succinate (Toprol Xl) 50 mg PO DAILY [facility] Last Admin: 05/21/17 08:54 Dose: 50 mg Pantoprazole Sodium (Protonix) 40 mg PO DAILY [facility] Sodium Chloride (Flush - Normal Saline) 10 ml IVF Q12HR [facility] Last Admin: 05/21/17 10:03 Dose: Not Given Sodium Chloride (Flush - Normal Saline) 10 ml IVF PRN PRN PRN Reason: Saline Flush Spironolactone (Aldactone) 100 mg PO QAM-WM [facility] Last Admin: 05/21/17 08:51 Dose: Not Given Valsartan (Diovan) 160 mg PO DAILY [facility] Last Admin: 05/21/17 08:53 Dose: Not Given
[2017-05-21] MEDS ORDERED: PROPOFOL 200 MG/20 ML VIAL ONE (16:53)
[2017-05-21] MEDS ORDERED: Lidocaine 1% PF 5 ML VIAL ONE (16:53)
--- NOTE | 2017-05-21 22:11 | PDOC.EVN ---
Event Note - Event Note Event Note: RN called - Difficult IV access. in AM to address the antibiotics.
[2017-05-22] MEDS: Piperacillin/Tazobactam 3.375 GM in Sodium Chloride 0.9% 100 ML IVPB SCH (04:58)
[2017-05-22 05:09] LABS: Anion Gap 9 mmol/L (10-20); BUN (Urea Nitrogen) 15 mg/dL (8.4-25.7); Calc. Creatinine Clearance 196 mL/min (70-130); Carbon Dioxide 25 mmol/L (23-31); Chloride 104 mmol/L (98-107); Estimated GFR-MDRD Greater than 90; Glucose 82 mg/dL (80-115); Potassium 3.9 mmol/L (3.5-5.1); Sodium 134 mmol/L (136-145)
[2017-05-22 05:20] LABS: Band 8 % (5-11); Eosinophils 2 % (0-10); Hemoglobin 8.4 g/dL (14.0-18.0); Hypochromia SLIGHT = 6-15 cells (100X) (0-5/hpf); Lymphocytes 20 % (21-51); MDiff Complete? YES; Mean Corpuscular HGB CONC 34.3 g/dL (32.0-36.0); Mean Corpuscular Hemoglobin 32.2 pg (27.0-31.0); Mean Corpuscular Volume 93.9 fl (80.0-94.0); Mean Platelet Volume 8.7 fL (7.4-10.4); Monocytes 15 % (0-10); Neutrophil 55 % (42-75); Nucleated RBC 2 % (0); PLT Morphology Comment Appears Decreased; Platelet Count 69 thou/uL (130-400); RBC Distribution Width 15.7 % (11.5-14.5); Red Blood Cell (RBC) Count 2.59 mill/uL (4.70-6.10); White Blood Cell (WBC) Count 5.9 thou/uL (4.8-10.8)
[2017-05-22] MEDS: Ascorbic Acid 500 mg Chewable Tablet PO SCH ×3 (06:58→16:53)
[2017-05-22] MEDS: Furosemide 40 MG TAB PO SCH (06:58)
[2017-05-22] MEDS: Valsartan 80 MG TAB PO SCH (08:08)
[2017-05-22] MEDS: Spironolactone 100 MG TAB PO SCH (08:08)
[2017-05-22] MEDS: Docusate 100 MG CAP PO SCH ×3 (08:08→21:45)
--- NOTE | 2017-05-22 15:19 | PRG ---
DATE OF SERVICE: 05/22/2017 SUBJECTIVE: Mr. Lloyd has no acute complaints today. No significant abdominal pain; however, he curtis s had progressive abdominal distention. OBJECTIVE: VITAL SIGNS: Temperature 98.3, pulse 73, blood pressure 108/72. GENERAL: He is in no acute distress, alert and oriented x3. LUNGS: Clear to auscultation bilaterally. HEART: Regular rate and rhythm. ABDOMEN: Distended, but soft and nontender. Bowel sounds are present. EXTREMITIES: No lower extremity edema. LABORATORY DATA: His creatinine is 0.6. IMPRESSION: 1. Cirrhosis of the liver, apparently from previous alcohol use. He has been off alcohol over the l ast 8 months. His synthetic function is compromised with an albumin of 2.9. The INR is elevated; ho wever, he might have been on blood thinner. His bilirubin is elevated at 1.9. 2. Ascites. This likely has a significant cardiac component. However, given the presentation with sepsis and bacteremia, SBP should be ruled out. 3. Duodenal ulcers and erosive gastritis by EGD by Dr. Nunez yesterday. Biopsies are pending fo r H. pylori. RECOMMENDATIONS: 1. Proton-pump inhibitor. 2. Ultrasound-guided paracentesis with fluid to be sent for cell count with differential, albumin an d total protein and compare with serum albumin. 3. Weigh the patient daily to help monitor fluid status.
--- NOTE | 2017-05-22 16:52 | CT ---
NONCONTRAST CT HEAD: 05/22/17 HISTORY: Recent fall last Wednesday now with new onset confusion. Recent head trauma. COMPARISON: 05/18/17. FINDINGS: There is no evidence of a hemorrhage, acute infarction, mass effect, or midline shift. There is mild cerebral volume loss. Ventricular system is normal in size, shape and position. Small right frontal s calp hematoma is again present. No underlying calvarial fracture is appreciated. There has been no in terval change compared to the prior exam. IMPRESSION: 1. No acute intracranial abnormality is demonstrated. 2. Mild improvement in right anterior frontal scalp hematoma. POS: [facility]
--- NOTE | 2017-05-22 19:27 | PDOC.PN ---
- Subjective Encounter Start Date: 05/22/17 Encounter Start Time: 11:00 Subjective: No complaints. Alert, well oriented but had some word finding difficulties -: No acute events overnight. - Objective Resuscitation Status: Resuscitation Status FULL:Full Resuscitation MAR Reviewed: Yes Vital Signs & Weight: Vital Signs (12 hours) Temp Pulse Resp BP Pulse Ox 05/22/17 19:02 98.7 F 77 20 121/72 99 05/22/17 11:05 98.3 F 73 18 108/72 98 05/22/17 08:00 98.4 F 70 18 Weight Weight 270 lb 6 oz I&O: 05/21/17 05/22/17 05/23/17 06:59 06:59 06:59 Intake Total 1150 500 Output Total 420 200 Balance 730 500 -200 Result Diagrams: 05/22/17 04:50 05/22/17 04:50 Additional Labs: Accuchecks 05/22/17 05/22/17 05/22/17 16:35 11:07 05:49 POC Glucose 82 109 90 05/21/17 20:01 POC Glucose 93 Phys Exam - Physical Examination Constitutional: NAD HEENT: PERRLA, moist MMs, sclera anicteric, oral pharynx no lesions Neck: no JVD, supple, full ROM Respiratory: no wheezing, no rales, no rhonchi, clear to auscultation bilateral Cardiovascular: RRR, no significant murmur, no rub Gastrointestinal: soft, non-tender, positive bowel sounds distended Musculoskeletal: no edema, pulses present Neurological: non-focal, moves all 4 limbs Psychiatric: normal affect, A&O x 3 Skin: no rash, normal turgor Dx/Plan (1) Duodenal ulcer Status: Acute Comment: As seen on EGD w erosive gastritis. Started on PPI. f/ u biopsy result for H. Pylori (2) Chronic diastolic CHF (congestive heart failure), NYHA class 3 Code(s): I50.32 - CHRONIC DIASTOLIC (CONGESTIVE) HEART FAILURE Status: Chronic Comment: Not in acute exacerbation. Continue current regimen. (3) Hyponatremia Code(s): E87.1 - HYPO-OSMOLALITY AND HYPONATREMIA Status: Acute Comment: Likely 2/2 potomania/cirrhosis. Improving. (4) Aortic stenosis Code(s): I35.0 - NONRHEUMATIC AORTIC (VALVE) STENOSIS Status: Chronic Qualifiers: Cardiac valve disease etiology: etiology unspecified Qualified Code(s): I35.0 - Nonrheumatic aortic (valve) stenosis Comment: h/o bioprosthetic aortic valve (5) CAD (coronary artery disease) Code(s): I25.10 - ATHSCL HEART DISEASE OF [place] CORONARY ARTERY W/O ANG PCTRS Status: Chronic Qualifiers: Coronary Disease-Associated Artery/Lesion type: [place] artery [place] vs. transplanted heart: [place] heart Associated angina: without angina Qualified Code(s): I25.10 - Atherosclerotic heart disease of [place] coronary artery without angina pectoris Comment: Stable. Chest pain free. Will continue home meds. ASA being held 2/2 occult blood + (6) Diabetes type 2, controlled Code(s): E11.9 - TYPE 2 DIABETES MELLITUS WITHOUT COMPLICATIONS Status: Chronic Qualifiers: Diabetes mellitus senior living insulin use: without senior living use Diabetes mellitus complication status: with unspecified complications Qualified Code(s) : E11.8 - Type 2 diabetes mellitus with unspecified complications Comment: Controlled. Continue current regimen. (7) Hypertension Code(s): I10 - ESSENTIAL (PRIMARY) HYPERTENSION Status: Chronic Qualifiers: Hypertension type: essential hypertension Qualified Code(s): I10 - Essential (primary) hypertension Comment: Controlled and at goal. 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 Will monitor. (9) Cirrhosis of liver Code(s): K74.60 - UNSPECIFIED CIRRHOSIS OF LIVER Status: Chronic Qualifiers: Ascites presence: with ascites Comment: Likely alcoholic cirrhosis. Has moderate ascites on Abd US. On furosemide and spironolactone. GI plan US guided paracentesis. (10) Laceration of forehead Code(s): S01.81XA - LACERATION W/O FOREIGN BODY OF OTH PART OF HEAD, INIT ENCNTR Status: Acute Qualifiers: Encounter type: subsequent encounter Qualified Code(s): S01.81XD - Laceration without foreign body of other part of head, subsequent encounter Comment: Stable. (11) Alcohol abuse Code(s): F10.10 - ALCOHOL ABUSE, UNCOMPLICATED Status: Chronic (12) Sepsis Code(s): A41.9 - SEPSIS, UNSPECIFIED ORGANISM Status: Resolved Comment: Improving with broad spectrum antibiotics. Blood cultures grew gram + cocci. Sensitivities pending. (13) Gram-positive bacteremia Code(s): R78.81 - BACTEREMIA Status: Acute Comment: Blood culture grew strep oralis. On abx. Repeat cultures negative so far. (14) Intermittent confusion Code(s): R41.0 - DISORIENTATION, UNSPECIFIED Status: Acute Comment: Concerns for possible hepatic encephalopathy v head trauma [place] but ammonia not elevated and CT head showed improved hematoma w no acute findings. Will monitor. - Plan cont current plan of care, plan discussed w/ family, continue antibiotics, PT/OT , DVT proph w/SCDs * . Review of Systems - Medications/Allergies Allergies/Adverse Reactions: Allergies Allergy/AdvReac Type Severity Reaction Status Date / Time cephalexin [From Keflex] Allergy Verified 06/05/16 09:49 Medications: Current Medications Acetaminophen (Tylenol) 650 mg PO Q4H PRN PRN Reason: Headache/Fever or Pain Albuterol Sulfate (Ventolin) 2.5 mg NEB [id number] PRN PRN Reason: Wheezing Ascorbic Acid (Vitamin C) 500 mg PO [facility] Last Admin: 05/22/17 16:53 Dose: 500 mg Dextrose/Water (Dextrose 50%) 25 gm SLOW IVP PRN PRN PRN Reason: Hypoglycemia Docusate Sodium (Colace) 100 mg PO BID [facility] Last Admin: 05/22/17 09:37 Dose: Not Given Furosemide (Lasix) 40 mg PO DAILY-[facility] Last Admin: 05/22/17 06:58 Dose: 40 mg Glucagon (Glucagon) 1 mg IM PRN PRN PRN Reason: Hypoglycemia Dextrose/Water (D5w) 1,000 mls @ 0 mls/hr IV .Q0M PRN; As Directed PRN Reason: Hypoglycemia Insulin Human Lispro (Humalog) 0 units SC .MILD SLIDING SCALE PRN PRN Reason: Mild Correctional Scale Labetalol HCl (Normodyne) 10 mg SLOW IVP Q4H PRN PRN Reason: SBP Greater Than 180 Levofloxacin (Levaquin) 750 mg PO 0600 [facility] Metoprolol Succinate (Toprol Xl) 50 mg PO DAILY [facility] Last Admin: 05/22/17 08:08 Dose: 50 mg Pantoprazole Sodium (Protonix) 40 mg PO DAILY [facility] Last Admin: 05/22/17 08:08 Dose: 40 mg Sodium Chloride (Flush - Normal Saline) 10 ml IVF Q12HR [facility] Last Admin: 05/22/17 08:11 Dose: Not Given Sodium Chloride (Flush - Normal Saline) 10 ml IVF PRN PRN PRN Reason: Saline Flush Spironolactone (Aldactone) 100 mg PO QAM-WM [facility] Last Admin: 05/22/17 08:08 Dose: 100 mg Valsartan (Diovan) 160 mg PO DAILY [facility] Last Admin: 05/22/17 08:08 Dose: 160 mg
[2017-05-23 04:35] LABS: INR-International Normal Ratio 1.6; Prothrombin Time 19.3 SEC (12.0-14.7)
[2017-05-23 04:40] LABS: Anion Gap 8 mmol/L (10-20); BUN (Urea Nitrogen) 12 mg/dL (8.4-25.7); Calc. Creatinine Clearance 193 mL/min (70-130); Calcium 8.2 mg/dL (7.8-10.44); Carbon Dioxide 26 mmol/L (23-31); Chloride 102 mmol/L (98-107); Estimated GFR-MDRD Greater than 90; Glucose 83 mg/dL (80-115); Potassium 3.8 mmol/L (3.5-5.1); Sodium 132 mmol/L (136-145)
[2017-05-23 04:41] LABS: ALT (SGPT) 41 U/L (8-55); AST (SGOT) 69 U/L (5-34); Albumin 2.7 g/dL (3.4-4.8); Alkaline Phosphatase 121 U/L (40-150); Bilirubin, Direct 0.8 mg/dL (0.1-0.3); Bilirubin, Total 1.3 mg/dL (0.2-1.2); Protein, Total 6.3 g/dL (5.8-8.1)
[2017-05-23 04:42] LABS: #Eosinphils 0.2 thou/uL (0.0-0.7); #Lymphocytes 1.7 thou/uL (1.20-3.40); #Monocytes 0.9 thou/uL (0.11-0.59); #Neutrophils 3.4 thou/uL (1.40-6.50); %Basophils 0.4 % (0.0-1.0); %Eosinophils 3.1 % (0.0-10.0); %Lymphocytes 27.8 % (21.0-51.0); %Monocytes 14.3 % (0.0-10.0); %Neutrophils 54.4 % (42.0-75.0); Hemoglobin 8.7 g/dL (14.0-18.0); Mean Corpuscular Hemoglobin 32.8 pg (27.0-31.0); Mean Corpuscular Volume 96.4 fl (80.0-94.0); Mean Platelet Volume 8.8 fL (7.4-10.4); Platelet Count 69 thou/uL (130-400); RBC Distribution Width 15.7 % (11.5-14.5); Red Blood Cell (RBC) Count 2.65 mill/uL (4.70-6.10); White Blood Cell (WBC) Count 6.3 thou/uL (4.8-10.8)
[2017-05-23] MEDS: Furosemide 40 MG TAB PO SCH (06:38)
[2017-05-23] MEDS: Ascorbic Acid 500 mg Chewable Tablet PO SCH ×3 (06:39→17:08)
[2017-05-23] MEDS: Spironolactone 100 MG TAB PO SCH (08:01)
[2017-05-23] MEDS: Valsartan 80 MG TAB PO SCH (08:32)
[2017-05-23] MEDS: Docusate 100 MG CAP PO SCH ×3 (08:32→20:14)
--- NOTE | 2017-05-23 10:53 | PDOC.PN ---
- Subjective Encounter Start Date: 05/23/17 Encounter Start Time: 10:10 -: old records requested/rev Pt seen and examined, chart reviewed in its entirety, this is my first visit with this patient. Pt awake, alert Ox3 today, speech normal, no events overnight. maría elena PO. notes reviewed, currently NPO awaiting his paracentesis. abd withoutpain, no N/V/D/C 10 point ROS performed and neg for all systems except as per HPI - Objective Resuscitation Status: Resuscitation Status FULL:Full Resuscitation MAR Reviewed: Yes Vital Signs & Weight: Vital Signs (12 hours) Temp Pulse Resp BP Pulse Ox 05/23/17 08:30 97.5 F L 76 16 05/23/17 07:19 97.5 F L 76 16 138/81 99 05/23/17 03:40 97.9 F 75 18 126/78 97 05/22/17 23:17 99 F 74 16 111/67 96 Weight Weight 272 lb 3 oz I&O: 05/22/17 05/23/17 05/24/17 06:59 06:59 06:59 Intake Total 500 480 Output Total 1025 Balance 500 -545 Result Diagrams: 05/23/17 03:10 05/23/17 03:10 Additional Labs: Accuchecks 05/23/17 05/22/17 05/22/17 05:58 20:36 16:35 POC Glucose 88 101 82 05/22/17 11:07 POC Glucose 109 Radiology Reviewed by me: Yes EKG Reviewed by me: Yes Phys Exam - Physical Examination Constitutional: NAD HEENT: PERRLA, moist MMs, sclera anicteric, oral pharynx no lesions Neck: no nodes, no JVD, supple, full ROM Respiratory: no wheezing, no rales, no rhonchi, clear to auscultation bilateral Cardiovascular: RRR, no rub 2-3 HSM at apex Gastrointestinal: soft, non-tender, positive bowel sounds distended, + fluid wave Musculoskeletal: no edema, pulses present Neurological: non-focal, normal sensation, moves all 4 limbs Lymphatic: no nodes Psychiatric: normal affect, A&O x 3 Skin: no rash, normal turgor, cap refill <2 seconds Dx/Plan (1) Infection due to Streptococcus mitis group Code(s): A49.1 - STREPTOCOCCAL INFECTION, UNSPECIFIED SITE Status: Acute Comment: present on admit. Thi sis an oral/GI bug. Paracentesis today. no evidence of prolonged bacteremia, but no repeat cx ordered. will repat BCx to document clearance. was on broad abx, lost iv, transitioned to levofloxacin. ok for now (2) Erosive esophagitis Code(s): K22.10 - ULCER OF ESOPHAGUS WITHOUT BLEEDING Status: Acute Comment : s/p UGIB and EGD. H/H slowly improving (3) Duodenal ulcer Status: Acute Comment: As seen on EGD w erosive gastritis. Started on PPI. f/ u biopsy result for H. Pylori (4) Gram-positive bacteremia Code(s): R78.81 - BACTEREMIA Status: Acute Comment: Blood culture grew strep oralis. On abx. Repeat cultures not ordered until today (5) Intermittent confusion Code(s): R41.0 - DISORIENTATION, UNSPECIFIED Status: Acute Comment: Concerns for possible hepatic encephalopathy v head trauma [place] but ammonia not elevated and CT head showed improved hematoma w no acute findings. Will monitor. (6) Laceration of forehead Code(s): S01.81XA - LACERATION W/O FOREIGN BODY OF OTH PART OF HEAD, INIT ENCNTR Status: Acute Qualifiers: Encounter type: subsequent encounter Qualified Code(s): S01.81XD - Laceration without foreign body of other part of head, subsequent encounter Comment: Stable. (7) Chronic diastolic CHF (congestive heart failure), NYHA class 3 Code(s): I50.32 - CHRONIC DIASTOLIC (CONGESTIVE) HEART FAILURE Status: Chronic Comment: Not in acute exacerbation. Continue current regimen. (8) Cirrhosis of liver Code(s): K74.60 - UNSPECIFIED CIRRHOSIS OF LIVER Status: Chronic Qualifiers: Ascites presence: with ascites Comment: Likely alcoholic cirrhosis. Has moderate ascites on Abd US. On furosemide and spironolactone. GI plan US guided paracentesis today, follow up on results (9) Sepsis Code(s): A41.9 - SEPSIS, UNSPECIFIED ORGANISM Status: Resolved Qualifiers: Sepsis type: Streptococcus, other Qualified Code(s): A40.8 - Other streptococcal sepsis Comment: Improving with broad spectrum antibiotics. Blood cultures grew strep mitis/oralis. Sensitivities reviewed (10) Hyponatremia Code(s): E87.1 - HYPO-OSMOLALITY AND HYPONATREMIA Status: Acute Comment: Likely 2/2 potomania/cirrhosis. Improving. (11) Aortic stenosis Code(s): I35.0 - NONRHEUMATIC AORTIC (VALVE) STENOSIS Status: Chronic Qualifiers: Cardiac valve disease etiology: etiology unspecified Qualified Code(s): I35.0 - Nonrheumatic aortic (valve) stenosis Comment: h/o bioprosthetic aortic valve. obvious concern for endocarditis. only two minor criteria at this point (12) CAD (coronary artery disease) Code(s): I25.10 - ATHSCL HEART DISEASE OF [place] CORONARY ARTERY W/O ANG PCTRS Status: Chronic Qualifiers: Coronary Disease-Associated Artery/Lesion type: [place] artery [place] vs. transplanted heart: [place] heart Associated angina: without angina Qualified Code(s): I25.10 - Atherosclerotic heart disease of [place] coronary artery without angina pectoris Comment: Stable. Chest pain free. Will continue home meds. ASA being held 2/2 occult blood + (13) Diabetes type 2, controlled Code(s): E11.9 - TYPE 2 DIABETES MELLITUS WITHOUT COMPLICATIONS Status: Chronic Qualifiers: Diabetes mellitus halfway insulin use: without associate principal use Diabetes mellitus complication status: with unspecified complications Qualified Code(s) : E11.8 - Type 2 diabetes mellitus with unspecified complications Comment: Controlled. Continue current regimen. (14) Hypertension Code(s): I10 - ESSENTIAL (PRIMARY) HYPERTENSION Status: Chronic Qualifiers: Hypertension type: essential hypertension Qualified Code(s): I10 - Essential (primary) hypertension Comment: Controlled and at goal. (15) Obesity (BMI 30.0-34.9) Code(s): E66.9 - OBESITY, UNSPECIFIED Status: Chronic (16) Thrombocytopenia Code(s): D69.6 - THROMBOCYTOPENIA, UNSPECIFIED Status: Chronic Comment: Likely hypersplenism/cirrhosis. Will monitor. - Plan cont current plan of care, plan discussed w/ family, continue antibiotics, PT/OT , out of bed/ambulate * .
--- NOTE | 2017-05-23 15:34 | PRG ---
DATE OF SERVICE: 05/22/2017 SUBJECTIVE: Mr. Manzano has no significant abdominal pain. He has been tolerating diet up until today . He has had no GI bleeding. OBJECTIVE: VITAL SIGNS: Temperature 97.6, pulse 72 and blood pressure 119/79. GENERAL: Awake, alert and oriented x3. LUNGS: Clear to auscultation bilaterally. HEART: Regular rate and rhythm. ABDOMEN: Distended and nontender. EXTREMITIES: No lower extremity edema. LABORATORY DATA: His hemoglobin is stable at 8.7 and platelets 69,000. INR 1.6, bilirubin 1.3 and a lbumin 2.7, IMPRESSION: 1. Cirrhosis of liver secondary to past alcohol use. 2. Ascites. Radiology wished to defer paracentesis until tomorrow because they were not comfortable with a platelet count and felt that Interventional Radiology would be available to handle this tomor row. 3. Duodenal ulcers and erosive gastritis by esophagogastroduodenoscopy. The H. pylori. biopsies ar e pending. RECOMMENDATIONS: 1. Proton pump inhibitor daily. 2. Ultrasound-guided paracentesis tomorrow. If necessary, platelets can be given prior to the proce dure tomorrow depending on the parameters that Radiology wants. 3. Continue to weigh the patient daily to monitor fluid status.
[2017-05-24 05:00] LABS: #Eosinphils 0.1 thou/uL (0.0-0.7); #Lymphocytes 1.9 thou/uL (1.20-3.40); #Monocytes 1.1 thou/uL (0.11-0.59); #Neutrophils 5.2 thou/uL (1.40-6.50); %Basophils 0.3 % (0.0-1.0); %Eosinophils 1.5 % (0.0-10.0); %Monocytes 13.5 % (0.0-10.0); %Neutrophils 61.7 % (42.0-75.0); Hemoglobin 8.4 g/dL (14.0-18.0); Mean Corpuscular HGB CONC 33.6 g/dL (32.0-36.0); Mean Corpuscular Hemoglobin 31.4 pg (27.0-31.0); Mean Corpuscular Volume 93.6 fl (80.0-94.0); Mean Platelet Volume 8.3 fL (7.4-10.4); Platelet Count 71 thou/uL (130-400); RBC Distribution Width 15.5 % (11.5-14.5); Red Blood Cell (RBC) Count 2.68 mill/uL (4.70-6.10); White Blood Cell (WBC) Count 8.5 thou/uL (4.8-10.8)
[2017-05-24 05:03] LABS: Anion Gap 7 mmol/L (10-20); BUN (Urea Nitrogen) 11 mg/dL (8.4-25.7); Calc. Creatinine Clearance 186 mL/min (70-130); Calcium 8.2 mg/dL (7.8-10.44); Carbon Dioxide 28 mmol/L (23-31); Chloride 103 mmol/L (98-107); Estimated GFR-MDRD Greater than 90; Glucose 105 mg/dL (80-115); Potassium 3.9 mmol/L (3.5-5.1); Sodium 134 mmol/L (136-145)
[2017-05-24] MEDS: Furosemide 40 MG TAB PO SCH (06:30)
[2017-05-24] MEDS: Ascorbic Acid 500 mg Chewable Tablet PO SCH ×2 (06:30→13:12)
[2017-05-24] MEDS: Docusate 100 MG CAP PO SCH (10:41)
[2017-05-24] MEDS: Valsartan 80 MG TAB PO SCH (10:41)
[2017-05-24] MEDS: Spironolactone 100 MG TAB PO SCH (10:41)
[2017-05-24] MEDS ORDERED: Sodium Bicarbonate 2.5 MEQ/5 ML VIAL ONE (13:18)
--- NOTE | 2017-05-24 15:56 | ULT ---
ULTRASOUND GUIDED PARACENTESIS: HISTORY: Ascites. COMPARISON: None. FINDINGS: Technically successful ultrasound-guided paracentesis. A total of 5,00 mL of yellow color ascites wa s aspirated. There are no immediate or post procedure complications. TECHNIQUE: Consent obtained to perform an ultrasound-guided paracentesis. The patient's abdomen was evaluated. Right lower quadrant was deemed appropriate. The skin was prepped and draped in sterile fashion. 1 % Lidocaine, buffered with sodium bicarbonate, was used for local anesthesia. Under ultrasound kaveh nce, a 5 [place] 7 cm Yueh catheter was advanced into the peritoneal space. Via vacuum bottles, a tot al of 5,500 mL of yellow color ascites was aspirated. The patient tolerated the procedure well. No immediate or post procedure complication. IMPRESSION: Technically successful ultrasound-guided paracentesis. A total of 5,500 mL of yellow color ascites w as aspirated. POS: [facility]
[2017-05-24 15:58] VITALS: BP 131/76; TEMP 97.5
--- NOTE | 2017-05-24 20:01 | OP ---
DATE OF PROCEDURE: 05/21/2017 SURGEON: Gena Nunez M.D. OPERATIVE PROCEDURE: Esophagogastroduodenoscopy with biopsy. PREOPERATIVE DIAGNOSIS: A 61-year-old male with chronic liver disease, possible liver cirr hosis. He was admitted with fever. The patient having some black tarry stool yesterday morning. Th e patient is undergoing an esophagogastroduodenoscopy. POSTOPERATIVE DIAGNOSES: 1. Esophageal varices 3-4+, no cyanosis and no stigmata of recent bleeding. 2. Portal hypertension gastropathy. 3. Multiple gastric erosions. 4. Gastric ulcer with black eschar indicative of recent bleeding over the gastric antrum. 5. Multiple ulcers in the duodenal bulb extending to descending duodenum. PROCEDURE IN DETAIL: The patient was placed on his left lateral position and was given sedation by A nesthesia Department. A Pentax video gastroscope under direct vision was passed into the oropharynx from the GE junction, into the stomach and subsequently into the descending duodenum. At time of end oscopy there is no blood seen in the stomach or the duodenum. The patient does have 3-4+ varicositie s over the distal esophagus. There is no recent stigmata of recent bleeding. Upon entering the stom ach, the patient found to have evidence of portal hypertensive gastropathy. Retroflexion failed to s how in the fundus or cardia. The patient has multiple gastric ulcers in gastric antrum and als o ulceration over the gastric . The ulcer has got blackish eschar representing most likely rece nt bleeding. The duodenal bulb, descending duodenum found multiple ulcerations. Biopsy of the gastr ic antrum and gastric body. The stomach was decompressed and the scope removed. RECOMMENDATIONS: 1. Protonix 40 once a day. 2. Avoid anticoagulation. 3. Consider beta blockers.
--- NOTE | 2017-05-31 10:06 | DIS ---
DATE OF ADMISSION: 05/18/2017 DATE OF DISCHARGE: 05/24/2017 PRIMARY CARE PHYSICIAN: Bianca Gibbs D.O. DISCHARGE DIAGNOSES: 1. Streptococcus mitis bacteremia, likely gastrointestinal source. 2. Erosive esophagitis without bleeding. 3. Duodenal ulcer. 4. Metabolic encephalopathy, likely hepatic encephalopathy versus head trauma sequelae. 5. Fall with laceration to the forehead from the same level. 6. Chronic diastolic congestive heart failure and [place] Heart Association class 3 without acute e xacerbation. 7. Cirrhosis, likely alcoholic. 8. Ascites secondary to his cirrhosis. 9. Severe sepsis secondary to Streptococcus mitis bacteremia. 10. Hyponatremia, hypervolemic. 11. Aortic stenosis, status post bioprosthetic aortic valve replacement. 12. Coronary artery disease without angina. 13. Diabetes mellitus type 2, insulin dependent. 14. Essential hypertension. 15. Obesity with a BMI of 30-34.9. 16. Chronic thrombocytopenia and coagulopathy secondary to his cirrhosis. CONSULTATIONS: Gastroenterology, Dr. Nunez, followed by Dr. Nilay Doyle over the weekend 05/22 to 05/23/2017 and then back to Dr. Nunez on 05/24/2017. PROCEDURES: 1. Abdominal ultrasound, 05/18/2017, showed ascites, heterogeneous liver with irregular margins, no focal mass, splenomegaly, and moderate volume ascites. 2. On 05/21/2017, by Dr. Nunez, we had EGD with biopsy showing esophageal varices 3-4+ without e vidence of recent bleeding. 3. Portal hypertension gastropathy. 4. Multiple gastric erosions. 5. Gastric ulcer with black eschar suggesting recent bleed. 6. Duodenal bulb ulcers with ascending duodenum without evidence of active bleed. 7. Ultrasound-guided paracentesis, 05/24/2017, with removal of 5.5 liters of yellow clear fluid. HISTORY AND PHYSICAL: Mr. Manzano is a pleasant 61-year-old male with history of alcoholism who presen ts to the emergency department for fever. He does have diabetes, hypertension, obesity, and aortic s tenosis as above. He had fever at home to 103 degrees the day prior to admission, took Tylenol and w ent to bed. A repeat temperature was still 101. The morning of admission, he went to call outside f or PCP. The patient did fall and hit his head, sustaining lacerations to right forehead, so EMS was called and brought to the emergency department. There, he was febrile. He had an elevated white count. He was hyponatremic with elevated lactic aci d. Troponin was 0.038. BNP was 878. Chest x-ray was otherwise clear and he was started on Zosyn an d admitted. Urinalysis reportedly negative. HOSPITAL COURSE: The patient was seen and admitted by Dr. Baer. The patient was given broad spe ctrum antibiotics with vancomycin and Zosyn, he was sutured up in the emergency department and the pa tient was placed on sliding scale insulin for correction. On 05/18/2017 to 05/19/2017, the patient had no acute events overnight. He was monitored for signs o f withdrawal. He was continued on same antibiotics. PT/OT was ordered to get him out of bed and wal k and continue with DVT prophylaxis with SCDs. On 05/20/2017, the patient was seen by Dr. Nunez. Dr. Nunez felt he was appropriate for EGD and probably had an upper GI bleed, and the patient was made n.p.o. On 05/21/2017, the patient underwent EGD with the above findings. He was continued on Protonix with no active bleed, it does look like it had stopped. Biopsies were obtained and were pending. By 05/22/2017, the patient did okay, but overnight he lost his IV, he was unable to get any further a ccess, so his IV was left out. By the morning of 05/22/2017, the patient was alert and well, but had some word finding difficulties. There was some concern of possible encephalopathy with head trauma. CT scan showed improved hemato ma and no other acute findings. By 05/23/2017, I did take over this case. He was still somewhat confused, but awake and alert. He i s oriented x3. He had normal speech. No acute events. culture identified as Strep mitis/oral is. The patient was continued on antibiotics and transitioned to levofloxacin, his IV did come out. By 05/24/2017, the patient finally had his paracentesis done as ordered by Dr. Doyle after he gotten some platelets prior to the procedure. A 5.5 liters of clear fluid with a very low white blood cell count were obtained without evidence of SBP. He was discharged home on Levaquin with outpatient christopher gomez. PHYSICAL EXAMINATION: The patient seen and examined on the day of discharge. Discharge plan and disposition were discussed with the patient and his face to face at the [facility]. DISCHARGE MEDICATIONS: 1. Levofloxacin 750 mg p.o. daily to complete 14-day course. 2. Pantoprazole 40 mg daily. 3. Aldactone 100 mg p.o. q.a.m. 4. Metoprolol succinate 50 mg daily. 5. Valsartan 160 mg p.o. daily. 6. Metformin 500 mg b.i.d. 7. Lasix 40 mg p.o. daily. 8. Albuterol sulfate 2 puffs inhaled every 6 hours as needed. 9. B12/B6 of 500 mg p.o. before meals. 10. Aspirin 81 mg daily. 11. Ascorbic acid 500 mg p.o. q.a.m. t.i.d. 12. Ripley 3 of 1000 mg at bedtime. 13. Multivitamin Centrum Silver daily. FOLLOWUP APPOINTMENTS: 1. Primary care physician in a week. 2. Dr. Nunez in 1-2 weeks. DISCHARGE DIET: Heart healthy, diabetic diet recommended. DISCHARGE CONDITION: Stable. DISPOSITION: Being discharged home via private vehicle. DISCHARGE ACTIVITY: Per cardiopulmonary limits.
== END 2017-05-24 16:35 | disposition home or self-care (01) | DRG 871 ==
LOC: ERS 10:58 → ERHOLD 14:06 → 2NO 16:24 → SURG A 05-20 11:18
PROVIDERS: ADMIT Internal Medicine; ATTEND Internal Medicine
PROC: 30233R1 Transfusion of Nonautologous Platelets into Peripheral Vein, Percutaneous Approach (ICD-10-PCS; 2017-05-18)
PROC: 0HQ1XZZ Repair Face Skin, External Approach (ICD-10-PCS; 2017-05-18)
PROC: 0DB68ZX Excision of Stomach, Via Natural or Artificial Opening Endoscopic, Diagnostic (ICD-10-PCS; principal; 2017-05-21)
PROC: 0W9G3ZX Drainage of Peritoneal Cavity, Percutaneous Approach, Diagnostic (ICD-10-PCS; 2017-05-24)
DX: A40.8 Other streptococcal sepsis (principal); K25.4 Chronic or unspecified gastric ulcer with hemorrhage; I50.33 Acute on chronic diastolic (congestive) heart failure; G93.41 Metabolic encephalopathy; R65.20 Severe sepsis without septic shock; I85.00 Esophageal varices without bleeding; E87.1 Hypo-osmolality and hyponatremia; K76.6 Portal hypertension; K22.10 Ulcer of esophagus without bleeding; I11.0 Hypertensive heart disease with heart failure; D69.59 Other secondary thrombocytopenia; I50.9 Heart failure, unspecified; K26.9 Duodenal ulcer, unspecified as acute or chronic, without hemorrhage or perforation; K70.31 Alcoholic cirrhosis of liver with ascites; K29.60 Other gastritis without bleeding; Z95.1 Presence of aortocoronary bypass graft; E11.9 Type 2 diabetes mellitus without complications; I25.10 Atherosclerotic heart disease of native coronary artery without angina pectoris; Z95.3 Presence of xenogenic heart valve; K31.89 Other diseases of stomach and duodenum; F10.21 Alcohol dependence, in remission; E66.9 Obesity, unspecified; Z68.36 Body mass index [BMI] 36.0-36.9, adult; S01.81XA Laceration without foreign body of other part of head, initial encounter; Z79.84 Long term (current) use of oral hypoglycemic drugs; W18.30XA Fall on same level, unspecified, initial encounter; Y92.009 Unspecified place in unspecified non-institutional (private) residence as the place of occurrence of the external cause; Z87.891 Personal history of nicotine dependence; Z88.1 Allergy status to other antibiotic agents; Y92.003 Bedroom of unspecified non-institutional (private) residence as the place of occurrence of the external cause
CPT/HCPCS: 12011; 36415; 36416; 36430; 49083; 70450; 71045; 72125; 76700; 80048; 80053; 80076; 80202; 81003; 81015; 82042; 82140; 82274; 82553; 83605; 83880; 84157; 84484; 85025; 85610; 85730; 86850; 86900; 86901; 87040; 87070; 87077; 87086; 87149; 87186; 87205; 87804; 88305; 88312; 90471; 90732; 93005; 94760; 96361; 96365; A4216; G0009; J1644; J2001; J2543; J2704; J3370; J7050; P9035

== ENCOUNTER 2017-08-03 05:59 | Day surgery (SDC) | payer OTHER ==
[2017-08-02 13:30] VITALS: BMI 34.5
--- NOTE | 2017-08-03 05:15 | HP ---
SHORT STAY HISTORY AND PHYSICAL DATE OF ADMISSION: 08/03/2017 HISTORY OF PRESENT ILLNESS: This is a 61-year-old male with liver cirrhosis and also history of esophageal varices. The patient has positive alcohol abuse. Also, he was diagnosed with liver cirrhosis, quit drink alcohol completely. He is on lactulose because of encephalopathy. The patient has had_ _ rectal bleeding and melena. The patient has had no GI bleeding recently. The patient comes for an EGD, because of the history of his elevation in the past and possibly from recent banding. ALLERGIES: KEFLEX. SOCIAL HISTORY: Patient is a former smoker. He also has positive alcohol abuse. MEDICAL ILLNESSES: 1. Liver cirrhosis. 2. Esophageal varices. 3. Hyperlipidemia. 4. Gastric ulcer - duodenal ulcer. 5. Anemia. 6. Aortic insufficiency. 7. Hypertension. 8. Diabetes. 9. Erosive esophagitis. 10. Glaucoma 11. Aortic valve replacement. PHYSICAL EXAMINATION: VITAL SIGNS: Pulse is 70, blood pressure 130/70. HEENT: Conjunctivae clear. CARDIOVASCULAR SYSTEM: First and second sounds are normal. LUNGS: Clear to auscultation. ABDOMEN: Soft to palpate. No organomegaly. No tenderness. No masses. ADMITTING DIAGNOSES: Liver cirrhosis, esophageal varices. PLAN: EGD and possible variceal banding. MTDD
[2017-08-03] MEDS ORDERED: Succinylcholine Chloride 20 MG/ML 10 ml SYRINGE FS ONE (07:09)
--- NOTE | 2017-08-03 12:12 | OP ---
DATE OF PROCEDURE: 08/03/2017 SURGEON: Gena Nunez M.D. OPERATIVE PROCEDURE: 1. Esophagogastroduodenoscopy with biopsy. 2. Esophagogastroduodenoscopy with 7-Pakistani heater probe therapy of bleeding arteriovenous malformat ion over the duodenal bulb. 3. EGD with variceal banding. PREOPERATIVE DIAGNOSES: Gastric ulcer, GI bleeding 3 months ago with black tarry stool. The EGD prabhu wed esophagitis. The patient is undergoing an esophagogastroduodenoscopy. POSTOPERATIVE DIAGNOSES: 1. Two columns of 3+ varicosities over the distal esophagus. 2. Antral gastritis with small ulcerations 2-3. 3. Active bleeding in the duodenal bulb from an AVM which has been cauterized. PROCEDURE IN DETAIL: The patient was placed on his left lateral position and underwent sedation by [facility] Anesthesia Department. A Pentax video gastroscope under direct vision was passed down the orophar ynx, past the GE junction, into the stomach. The patient had severe erosive esophagitis seen on last exam. All the erosions has healed. He had 2 columns of 3+ varicosities over the distal esophagus. The veins are short in length. The fundus showed a gastric varix. The gastric body, no pathology s een. Over the gastric antrum the patient found to have the gastric mucosa with multiple small ulcers. Biopsy of the area. The scope was advanced into duodenal bulb. The proximal duodenal bulb shows an area of pooling of blood. The blood is fresh blood. This kept oozing. Water was used to w ashout. Appears to be AVM bleeding. This was cauterized with 7 Pakistani heater probe with good hemost asis. A variceal band ligator applied to tip of the scope and advanced to . The scope was care fully withdrawn and banding applied with good hemostasis. DISCHARGE PLANNING: This is a 61-year-old male who came for an EGD because of previously d iagnosed gastric ulcer bleeding and also esophageal varices. He underwent EGD with biopsy and also h ad some recent banding. He was found to have an active bleeding from the AVM in the bulb of the duod enum. This was cauterized with 7 Pakistani heater probe. RECOMMENDATIONS: 1. Patient advised to stay on a clear liquid diet today and advance diet to soft diet tomorrow. 2. He was advised to call me if he develops any chest pain, fever, hematemesis, melena.
== END 2017-08-03 09:00 | disposition home or self-care (01) ==
LOC: SDC 05:59
PROVIDERS: ATTEND Internal Medicine Gastroenterology
PROC: 0DB68ZX Excision of Stomach, Via Natural or Artificial Opening Endoscopic, Diagnostic (ICD-10-PCS; principal; 2017-08-03)
PROC: 0W3P8ZZ Control Bleeding in Gastrointestinal Tract, Via Natural or Artificial Opening Endoscopic (ICD-10-PCS; principal; 2017-08-03)
DX: K74.60 Unspecified cirrhosis of liver (principal); I85.10 Secondary esophageal varices without bleeding; K31.811 Angiodysplasia of stomach and duodenum with bleeding; E78.5 Hyperlipidemia, unspecified; D64.9 Anemia, unspecified; I10 Essential (primary) hypertension; E11.9 Type 2 diabetes mellitus without complications; K22.10 Ulcer of esophagus without bleeding; H40.9 Unspecified glaucoma; Z87.891 Personal history of nicotine dependence; Z88.1 Allergy status to other antibiotic agents; Z79.82 Long term (current) use of aspirin; Z79.899 Other long term (current) drug therapy
CPT/HCPCS: 88305; 88312

== ENCOUNTER 2017-08-06 09:07 | Inpatient (IN) | payer OTHER ==
[2017-08-06 11:45] LABS: INR-International Normal Ratio 1.9; PTT 44.3 SEC (22.9-36.1); Prothrombin Time 22.1 SEC (12.0-14.7)
--- NOTE | 2017-08-06 13:18 | HP ---
PRIMARY CARE PHYSICIAN: Dr. Bianca Gibbs. REASON FOR ADMISSION: Sepsis. HISTORY OF PRESENT ILLNESS: A 61-year-old male who has history of cirrhosis of liver, as well as por lamonte hypertension who initially went to [facility] for evaluation of high grade fever. T he patient reports that on Wednesday, patient was feeling subjective feverish; Wednesday, he was having fever; in the morning time he felt better, but again in evening time he started having feve r and today this morning he was having fever and some chills and that is why he decided to go to [facility]. At [facility], patient had routine blood test, which showed leukocytosis with a left ying ft. He had lactic acid elevated. His chest x-ray was unremarkable. The patient has ascites, but he denies any abdominal pain. He denies any nausea, vomiting, hematemesis. He denies any melena or he matochezia. He denies any cough. He does have mild chronic shortness of breath. He was feeling mil d sore throat after recent upper endoscopic procedure. The patient reports that on 08/03/2017, patient had upper endoscopy. At that time, biopsy was obtain ed from esophagus and he had an AV malformation in duodenal bulb which was cauterized and gastric judy ices was banded. He denies any UTI symptoms. He denies any headache. He denies any dizziness or sy ncope. He denies any hemoptysis. He denies any constipation, diarrhea, melena or hematochezia. REVIEW OF SYSTEMS: The following complete review of systems was negative, unless otherwise mentioned in the HPI or below: Constitutional: Weight loss or gain, ability to conduct usual activities. Skin: Rash, itching. Eyes: Double vision, pain. ENT/Mouth: Nose bleeding, neck stiffness, pain, tenderness. Cardiovascular: Palpitations, dyspnea on exertion, orthopnea. Respiratory: Shortness of breath, wheezing, cough, hemoptysis, fever or night sweats. Gastrointestinal: Poor appetite, abdominal pain, heartburn, nausea, vomiting, constipation, or diarr hea. Genitourinary: Urgency, frequency, dysuria, nocturia. Musculoskeletal: Pain, swelling. Neurologic/Psychiatric: Anxiety, depression. Allergy/Immunologic: Skin rash, bleeding tendency. Please see my HPI for pertinent positive and negative. All other review of system reviewed and negat emma except as mentioned in the HPI. PAST MEDICAL HISTORY: History of aortic stenosis required a bioprosthetic aortic valve replacement, diabetes type 2, hypertension, morbid obesity, history of gastric ulcer, history of esophagitis, hist ory of chronic diastolic heart failure, mild coronary artery disease, diabetes type 2, now diet contr olled, history of esophageal varices requiring banding. PAST SURGICAL HISTORY: Sinus surgery, right knee surgery, left hip replacement, aortic valve replace ment, esophageal varices banded in 08/03/2017. The patient had upper endoscopy with biopsy and caute rization of AV malformation in duodenal bulb. PAST PSYCHIATRIC HISTORY: Reviewed and negative. SOCIAL HISTORY: Patient is a former drinker. He currently denies any alcohol abuse. He is a former smoker. He currently denies any smoking. He is and lives at home with his . ALLERGIES: KEFLEX gives hives. FAMILY HISTORY: No strong family history of premature coronary artery disease, stroke or cancer. CURRENT HOME MEDICATIONS: Metoprolol 50 mg daily, Aldactone 100 mg p.o. daily, lactulose 30 grams p. o. 3 times daily. EMERGENCY ROOM COURSE: Patient has received Zosyn. PHYSICAL EXAMINATION: VITAL SIGNS: On arrival to emergency room, currently blood pressure 109/57, pulse 85, respiratory ra te 22, temperature 99.5, saturation 97% on room air. Patient was afebrile. At [facility], his temperature was 102.5 and he was hypotensive with 89/50 and he was tachypneic with respirator y rate of 26. GENERAL: Patient is currently alert, awake, no obvious acute distress. HEAD: Normocephalic, atraumatic. EYES: Pupils round, reactive to light. Extraocular muscle intact. ENT: Oropharynx within normal limits. Moist mucous membranes. No oral lesion, no pharyngeal erythe ma, no exudate. NECK: Supple, no JVD, no thyromegaly, no carotid bruit. LUNGS: Clear to auscultation without any rhonchi or rales. CARDIAC: S1 and S2 appears regular. Bioprosthetic valve click heard. No gallop, no rub. ABDOMEN: Ascites noted. Obesity noted. Nontender, no peritoneal sign, no suprapubic tenderness. BACK: Examination unremarkable, no CVA tenderness. EXTREMITIES: Upper extremity passive movement of all joints are normal. Lower extremities, bilatera l lower extremity trace edema noted. Good distal pulsation. SKIN: No skin rash. HEMATOLOGICAL SYSTEM: No lymphadenopathy. PSYCHIATRIC: Normal affect. IMAGING DATA AND SIGNIFICANT LABORATORY DATA: 1. Chest x-ray based on my review, no acute cardiopulmonary process. 2. CBC: WBC 17.1, hemoglobin 8.1, MCV 77.3, platelet 84. 3. BMP: Sodium 131, potassium 4.5, chloride 101, carbon dioxide 19, anion gap 16, BUN 12, creatinin e 1.35, glucose 126, calcium 8.5. 4. LFT: AST 42, ALT 23, alkaline phosphatase is 135, albumin 2.9, CK-MB 1.2, troponin I 0.028, BNP 460.9, lactic acid 3.4 and then 2.3. 5. Monitor showing sinus rhythm. ASSESSMENT AND PLAN/IMPRESSION: 1. Sepsis with acute organ dysfunction. Patient meets sepsis criteria with high grade fever, temper ature 102, pulse 110, respiratory rate 26. He has acute kidney injury with creatinine of 1.35. Sour ce of infection is unclear. He has lactic acidosis. His chest x-ray appears clear. His examination is unremarkable, but I am suspecting given he had a recent upper endoscopy procedure, possibility of spontaneous bacterial peritonitis needs to be excluded. We will check urinalysis and urine culture, blood culture already obtained in emergency room. We will follow up on culture result. We will sta rt broad spectrum antibiotic therapy with vancomycin, Zosyn, and Levaquin. We will monitor on teleme try floor. 2. Dyslipidemia. 3. Hypertension, likely related with sepsis. The patient also reports that he has chronic hypotensi on and currently patient is asymptomatic. His blood pressure improved in our emergency room, 4. Acute kidney injury, likely related with sepsis. We will monitor renal function. We will hold o n Lasix and Aldactone therapy. We will repeat BMP tomorrow. 5. Cirrhosis of liver with portal hypertension. This patient has ascites, esophageal varices and ci rrhosis. GI team will be consulted. We will continue lactulose 30 grams p.o. t.i.d. as per home dos age. We are holding Lasix and Aldactone because of relatively low blood pressure. 6. Lactic acidosis, likely due to sepsis. We will repeat lactic acid tomorrow. 7. Elevated BNP, likely due to colonic diastolic heart failure from valvular heart disease and becau se of that, we will avoid giving him too much fluid. He has also edema and hypoalbuminemia. He is a t risk for third spacing. 8. Mild hyponatremia, likely related with cirrhosis. 9. Anemia, microcytic. The patient will be given ferrous sulfate and multivitamin therapy. We will monitor his CBC. 10. Thrombocytopenia likely due to cirrhosis and because of that, we will avoid anticoagulant produc t 11. History of aortic stenosis required a bioprosthetic aortic valve and that is why the patient has elevated BNP. Currently, the patient is stable and euvolemic. 12. Morbid obesity. Dietary education given, weight loss education given. Healthy lifestyle measur es discussed with the patient. 13. Deep venous thrombosis prophylaxis. No Lovenox or heparin products because of low platelet coun t. 14. Gastrointestinal prophylaxis, Protonix 40 mg p.o. daily. CODE STATUS: The patient is FULL CODE. The patient's is surrogate decision maker. Disposition plan based on clinical course. We will watch him in the telemetry floor. We will follow up on culture result and we are expecting patient's stay in hospital more than 2 midnights. Plan of care discussed with the patient and his at bedside in the emergency room. Today we are going t o do paracentesis and we will send fluid culture and fluid chemistry.
--- NOTE | 2017-08-06 14:10 | ULT ---
ULTRASOUND GUIDED PARACENTESIS: Date: 08/06/17 HISTORY: Ascites, fever, spontaneous bacterial peritonitis. COMPARISON: Ultrasound guided paracentesis 06/03/17. TECHNIQUE/FINDINGS: Patient was brought to the ultrasound suite. All questions were answered. The patient's right lower q uadrant was prepped and draped in the normal sterile fashion. Informed consent was obtained. Timeout was performed. 4 mL of buffered lidocaine was instilled into the superficial and deep soft tissues. S mall dermatotomy was made after adequate anesthesia. A 5 Japanese Yueh needle was inserted into the per itoneal space and 6 liters of fluid aspirated. The patient tolerated the procedure well and without c omplication. IMPRESSION: Technically successful ultrasound guided paracentesis. POS: MILLICENT
[2017-08-06] MEDS ORDERED: Mag-Al 1200 mg/1200 mg/30 ML UDCUP PO PRN (14:23)
[2017-08-06] MEDS ORDERED: Eucerin (Mineral Oil/Petrolatum,White) 30 gm Jar TOP PRN (14:23)
[2017-08-06] MEDS ORDERED: Diabetic Tussin 200 MG/10 ML UDCUP PO PRN (14:23)
[2017-08-06] MEDS ORDERED: Ondansetron HCl/PF 4 MG/2 ML Vial IVP PRN (14:23)
[2017-08-06] MEDS ORDERED: Loratadine 10 MG TAB PO PRN (14:23)
[2017-08-06] MEDS ORDERED: hydrALAZINE 20 MG/ML VIAL SLOW IVP PRN (14:23)
[2017-08-06] MEDS ORDERED: Sodium Chloride 0.65% Nasal 44 ML BOT EA NARE PRN (14:23)
[2017-08-06] MEDS ORDERED: HYDROcodone/Acetaminophen 5/325 mg Tablet PO PRN (14:23)
[2017-08-06] MEDS ORDERED: Artificial Tear Sol 15 ML BOT EA EYE PRN (14:23)
[2017-08-06] MEDS ORDERED: Milk Of Magnesia 30 ML UDCUP PO PRN (14:23)
[2017-08-06] MEDS ORDERED: Acetaminophen 325 MG TAB PO PRN (14:23)
[2017-08-06] MEDS ORDERED: Chloraseptic Spray 180 ml Bottle PO PRN (14:23)
[2017-08-06] MEDS ORDERED: Loperamide HCl 2 MG CAP PO PRN (14:23)
[2017-08-06] MEDS ORDERED: Senokot 8.6 MG TAB PO PRN (14:23)
[2017-08-06] MEDS ORDERED: Zolpidem Tartrate 5 MG TAB PO PRN (14:23)
[2017-08-06] MEDS ORDERED: Ondansetron ODT 4 MG TAB PO PRN (14:23)
[2017-08-06 14:30] LABS: Body Fluid Source Ascites Body Fluid
[2017-08-06 14:31] LABS: BF Color Yellow; BF RBC Count - Manual 100 /cumm; BF WBC/Nonhematics Ct. - Manua 435 /cumm; Clarity Clear (Clear); Tube # EDTA
[2017-08-06 15:00] VITALS: BMI 33.3
[2017-08-06 15:07] LABS: BF Segmented Neutrophils 7 %; Cell Count Non Hematic 69 %; Lymphocytes 24 %
[2017-08-06 15:31] LABS: Lactic Acid 2.6 mmol/L (0.5-2.2)
[2017-08-06 16:02] LABS: Bilirubin Small (Negative); Blood, Urine Negative (Negative); Clarity CLEAR (Clear); Glucose, Urine (Dipstick) Negative (Negative); Leukocyte Small (Negative); Nitrite Negative (Negative); Protein, Urine (Dipstick) Trace mg/dL (Neg-Trace); Specific Gravity, Urine 1.022 (1.002-1.036); pH, Urine 5.5 (5.0-9.0)
[2017-08-06 16:06] LABS: Bacteria/HPF None Seen HPF (None Seen); Hyaline Casts/LPF 0-3 HYALINE CAST LPF (0-3 Hyaline); Squamous Epithelial 0-3 HPF (0-3); WBC/HPF 0-3 HPF (0-3)
[2017-08-06 16:07] LABS: RBC/HPF 0-3 HPF (0-3)
[2017-08-06] MEDS: Piperacillin/Tazobactam 3.375 GM in Sodium Chloride 0.9% 100 ML IVPB SCH ×2 (16:40→21:31)
[2017-08-06] MEDS: Vancomycin HCl 1.5 GM in Sodium Chloride 0.9% 250 ML 300 ML IVPB SCH (17:40)
[2017-08-07] MEDS: Piperacillin/Tazobactam 3.375 GM in Sodium Chloride 0.9% 100 ML IVPB SCH (03:22)
[2017-08-07 04:59] LABS: PTT 47.2 SEC (22.9-36.1)
[2017-08-07 05:17] LABS: Lactic Acid 1.1 mmol/L (0.5-2.2)
[2017-08-07] MEDS: Vancomycin HCl 1.5 GM in Sodium Chloride 0.9% 250 ML 300 ML IVPB SCH ×2 (05:17→17:24)
[2017-08-07 05:20] LABS: ALT (SGPT) 22 U/L (8-55); AST (SGOT) 37 U/L (5-34); Albumin 2.6 g/dL (3.4-4.8); Alkaline Phosphatase 109 U/L (40-150); Anion Gap 10 mmol/L (10-20); BUN (Urea Nitrogen) 18 mg/dL (8.4-25.7); Bilirubin, Total 1.4 mg/dL (0.2-1.2); Calc. Creatinine Clearance 139 mL/min (70-130); Calcium 8.1 mg/dL (7.8-10.44); Carbon Dioxide 22 mmol/L (23-31); Chloride 99 mmol/L (98-107); Estimated GFR-MDRD 90; Globulin 3.8 g/dL (2.4-3.5); Glucose 93 mg/dL (80-115); Potassium 4.4 mmol/L (3.5-5.1); Protein, Total 6.4 g/dL (5.8-8.1); Sodium 127 mmol/L (136-145)
[2017-08-07 06:23] LABS: #Lymphocytes 0.8 thou/uL (1.20-3.40); #Monocytes 1.1 thou/uL (0.11-0.59); #Neutrophils 7.2 thou/uL (1.40-6.50); %Basophils 0.1 % (0.0-1.0); %Eosinophils 0.1 % (0.0-10.0); %Lymphocytes 8.2 % (21.0-51.0); %Monocytes 12.3 % (0.0-10.0); %Neutrophils 79.2 % (42.0-75.0); Hemoglobin 7.4 g/dL (14.0-18.0); Mean Corpuscular HGB CONC 33.6 g/dL (32.0-36.0); Mean Corpuscular Hemoglobin 28.4 pg (27.0-31.0); Mean Corpuscular Volume 84.6 fL (78.0-98.0); Mean Platelet Volume 9.1 fL (7.4-10.4); PLT Morphology Comment Appears Decreased; Platelet Count 64 thou/uL (130-400); RBC Distribution Width 15.5 % (11.5-14.5); Red Blood Cell (RBC) Count 2.61 mill/uL (4.70-6.10); White Blood Cell (WBC) Count 9.1 thou/uL (4.8-10.8)
[2017-08-07] MEDS: Saccharomyces boulardii 250 MG CAP PO SCH (09:07)
--- NOTE | 2017-08-07 11:00 | PDOC.PN ---
- Subjective Encounter Start Date: 08/07/17 Encounter Start Time: 07:30 -: old records requested/rev Patient seen and examined. No new complaints. No overnight events no fever today, he had 6 liter removed with paracentesis - Objective Resuscitation Status: Resuscitation Status FULL:Full Resuscitation MAR Reviewed: Yes Vital Signs & Weight: Vital Signs (12 hours) Temp Pulse Resp BP Pulse Ox 08/07/17 08:55 98.2 F 75 18 105/55 L 97 08/07/17 04:00 98.7 F 81 16 110/52 L 95 08/06/17 23:58 100.1 F H 88 18 107/51 L 94 L Weight Weight 245 lb 11.2 oz I&O: 08/06/17 08/07/17 08/08/17 06:59 06:59 06:59 Intake Total 1340 Output Total 6625 Balance -5285 Result Diagrams: 08/07/17 04:18 08/07/17 04:18 EKG Reviewed by me: Yes (nsr) Phys Exam - Physical Examination Constitutional: NAD HEENT: PERRLA, moist MMs, sclera anicteric Neck: no JVD, supple Respiratory: no wheezing, no rales, no rhonchi Cardiovascular: RRR, no rub prosthetic click Gastrointestinal: soft, non-tender, positive bowel sounds ascites+ Musculoskeletal: pulses present, edema present Neurological: non-focal, normal sensation, moves all 4 limbs Lymphatic: no nodes Psychiatric: normal affect, A&O x 3 Skin: no rash, normal turgor Dx/Plan (1) SBP (spontaneous bacterial peritonitis) Code(s): K65.2 - SPONTANEOUS BACTERIAL PERITONITIS Status: Suspected (2) AVM (arteriovenous malformation) of duodenum, acquired Code(s): K31.819 - ANGIODYSPLASIA OF STOMACH AND DUODENUM WITHOUT BLEEDING Status: Acute (3) Sepsis with acute organ dysfunction Code(s): A41.9 - SEPSIS, UNSPECIFIED ORGANISM; R65.20 - SEVERE SEPSIS WITHOUT SEPTIC SHOCK Status: Acute (4) Alcohol abuse Code(s): F10.10 - ALCOHOL ABUSE, UNCOMPLICATED Status: Chronic (5) Anemia, normocytic normochromic Code(s): D64.9 - ANEMIA, UNSPECIFIED Status: Chronic (6) CAD (coronary artery disease) Code(s): I25.10 - ATHSCL HEART DISEASE OF [place] CORONARY ARTERY W/O ANG PCTRS Status: Chronic Qualifiers: Comment: Stable. Chest pain free. Will continue home meds. ASA being held 2/2 occult blood + (7) Chronic diastolic CHF (congestive heart failure), NYHA class 3 Code(s): I50.32 - CHRONIC DIASTOLIC (CONGESTIVE) HEART FAILURE Status: Chronic Comment: Not in acute exacerbation. Continue current regimen. (8) Cirrhosis of liver with ascites Code(s): K74.60 - UNSPECIFIED CIRRHOSIS OF LIVER; R18.8 - OTHER ASCITES Status : Chronic (9) Coagulopathy Status: Chronic (10) Diabetes type 2, controlled Code(s): E11.9 - TYPE 2 DIABETES MELLITUS WITHOUT COMPLICATIONS Status: Chronic Qualifiers: Comment: (11) Esophageal varices Code(s): I85.00 - ESOPHAGEAL VARICES WITHOUT BLEEDING Status: Chronic (12) H/O gastric ulcer Code(s): Z87.19 - PERSONAL HISTORY OF OTHER DISEASES OF THE DIGESTIVE SYSTEM Status: Chronic (13) Hypertension Code(s): I10 - ESSENTIAL (PRIMARY) HYPERTENSION Status: Chronic Qualifiers: Comment: (14) Hyponatremia Code(s): E87.1 - HYPO-OSMOLALITY AND HYPONATREMIA Status: Chronic Comment: Likely 2/2 potomania/cirrhosis. Improving. (15) Obesity (BMI 30.0-34.9) Code(s): E66.9 - OBESITY, UNSPECIFIED Status: Chronic (16) S/P aortic valve replacement with bioprosthetic valve Code(s): Z95.3 - PRESENCE OF XENOGENIC HEART VALVE Status: Chronic (17) Thrombocytopenia Code(s): D69.6 - THROMBOCYTOPENIA, UNSPECIFIED Status: Chronic Comment: Likely hypersplenism/cirrhosis. Will monitor. (18) Lactic acidosis Code(s): E87.2 - ACIDOSIS Status: Resolved - Plan cont current plan of care, plan discussed w/ family, continue antibiotics * DC zosyn * continue levaquin and vancomycin * transfer to medical * dc tele * follow culture and monitor for fever * medication reviewed as below * symptomatic treatment * discussed with family bedside. Review of Systems - Review of Systems Eyes: negative: Pain, Vision Change, Conjunctivae Inflammation, Eyelid Inflammation, Redness, Other ENT: negative: Ear Pain, Ear Discharge, Nose Pain, Nose Discharge, Nose Congestion, Mouth Pain, Mouth Swelling, Throat Pain, Throat Swelling, Other Respiratory: negative: Cough, Dry, Shortness of Breath, Hemoptysis, SOB with Excertion, Pleuritic Pain, Sputum, Wheezing Cardiovascular: negative: chest pain, palpitations, orthopnea, paroxysmal nocturnal dyspnea, edema, light headedness, other Gastrointestinal: negative: Nausea, Vomiting, Abdominal Pain, Diarrhea, Constipation, Melena, Hematochezia, Other Genitourinary: negative: Dysuria, Frequency, Incontinence, Hematuria, Retention , Other Musculoskeletal: negative: Neck Pain, Shoulder Pain, Arm Pain, Back Pain, Hand Pain, Leg Pain, Foot Pain, Other Skin: negative: Rash, Lesions, Nick, Bruising, Other - Medications/Allergies Allergies/Adverse Reactions: Allergies Allergy/AdvReac Type Severity Reaction Status Date / Time cephalexin [From Keflex] Allergy Rash Verified 08/02/17 13:31 Medications: Current Medications Acetaminophen (Tylenol) 650 mg PO Q4H PRN PRN Reason: Headache/Fever or Pain Hydrocodone Bitart/Acetaminophen ([place] 5/325) 1 tab PO Q4H PRN PRN Reason: Moderate Pain (4-6) Al Hydroxide/Mg Hydroxide (Maalox) 30 ml PO Q6H PRN PRN Reason: Heartburn or Indigestion Albuterol/Ipratropium (Duoneb) 3 ml NEB [id number] PRN PRN Reason: SOB &/or Wheezing Artificial Tears (Tears Renewed 15ml Bottle) 0 drop EA EYE PRN PRN PRN Reason: Dry Eyes Guaifenesin (Robitussin Sf) 200 mg PO Q4H PRN PRN Reason: Cough Hydralazine HCl (Apresoline) 5 mg SLOW IVP Q4H PRN PRN Reason: Systolic BP > 180 Levofloxacin 500 mg/ Device 100 mls @ 100 mls/hr IVPB Q24HR [facility] Last Admin: 08/06/17 15:33 Dose: 100 mls Vancomycin HCl 1.5 gm/ Sodium (Chloride) 300 mls @ 200 mls/hr IVPB 0500,1700 [facility] Last Admin: 08/07/17 05:17 Dose: 300 mls Loperamide HCl (Imodium) 2 mg PO PRN PRN PRN Reason: Diarrhea/Loose Stools Loratadine (Claritin) 10 mg PO DAILYPRN PRN PRN Reason: Sinus Symptoms Magnesium Hydroxide (Milk Of Magnesium) 30 ml PO DAILYPRN PRN PRN Reason: Constipation Mineral Oil/White Petrolatum (Eucerin Cream) 0 gm TOP BIDPRN PRN PRN Reason: Dry Skin Miscellaneous Medication (Pharmacy To Dose) 1 each IVPB PRN PRN PRN Reason: Pharmacy to dose Ondansetron HCl (Zofran Odt) 4 mg PO Q6H PRN PRN Reason: Nausea/Vomiting Ondansetron HCl (Zofran) 4 mg IVP Q6H PRN PRN Reason: Nausea/Vomiting Pantoprazole Sodium (Protonix) 40 mg PO DAILY [facility] Last Admin: 08/07/17 09:07 Dose: 40 mg Phenol (Chloraseptic [place] 180 Ml Bot) 0 ml PO PRN PRN PRN Reason: Sore Throat Saccharomyces Boulardii (Florastor) 250 mg PO DAILY [facility] Last Admin: 08/07/17 09:07 Dose: 250 mg Senna (Senokot) 2 tab PO HSPRN PRN PRN Reason: Constipation Sodium Chloride ([place] Nasal [place] 0.65%) 0 ml EA NARE QIDPRN PRN PRN Reason: Nasal Congestion Zolpidem Tartrate (Ambien) 5 mg PO HSPRN PRN PRN Reason: Insomnia
--- NOTE | 2017-08-07 11:12 | CON ---
DATE OF CONSULTATION: 08/06/2017 REFERRING PHYSICIAN: Dr. Greg Ugalde. REASON FOR CONSULTATION: Fever without localizing symptoms. HISTORY OF PRESENT ILLNESS: Gabino Manzano is a very pleasant, 61-year-old, male, who is known to me from before. The patient was seen by me a couple of months ago when he was hospitalized here. At the time, he had an episode of melena and drop in blood count. He had an EGD done, which revealed multiple gastric ulcers and also ulcers in the duodenum. He is also having erosive esophagitis and gastroesophageal varices. The patient was placed on subsequently PPI and has done very well. The patient was brought in to day surgery three days ago for EGD and variceal banding. He underwent EGD on Wednesday and was found to have a bleeding AVM in the duodenal bulb, which was cauterized. He was also found to have multiple small gastric ulcers and polyps. He had 2 variceal banding done on Wednesday. He did very well without any problem. He went home following the procedure. Patient has no abdominal pain, no chest pain, no hematemesis or melena. The patient developed a fever of 102 degree Fahrenheit on Wednesday afternoon. The fever persisted through , and this morning, found to have some fever of 102 and with some chills. The patient has no localizing symptoms. He has no sore throat, no coughing, no diarrhea, no dysuria or any frequency or urgency. He also had abdominal pain. As he has ascites and he has forward flexion fever, it was felt that patient possibly could have SBP. He underwent ultrasound-guided paracentesis today. Paracentesis fluid shows mostly nonhemorrhagic cells. The total WBC count is 435, but mostly lymphocytes and non-hematic cells. The cultures of the fluid is pending. Since admission, he has had temperature spikes. At the present time, his temperature 98.4 degrees Fahrenheit, pulse is 76, blood pressure 108/53. No relevant history. MEDICAL ILLNESSES: 1. Liver cirrhosis, portal hypertension, esophageal varices. 2. Ascites. 3. Aortic cirrhosis, status post aortic valve replacement. 4. Diabetes mellitus. 5. Hypertension. 6. Morbid obesity. 7. Gastric ulcer. 8. Ulcer in the duodenal bulb. 9. Erosive esophagitis. 10. Esophageal varices. 11. Chronic diastolic heart failure. 12. Mild coronary artery disease. 13. Type 2 diabetes mellitus. SOCIAL HISTORY: Patient is . He is a former smoker. He also has history of alcohol abuse in the past, but does not drink alcohol anymore. He does not smoke anymore. ALLERGIES: KEFLEX. SURGERIES: 1. Sinus surgery. 2. Right knee surgery. 3. Left hip replacement. 4. Aortic valve replacement. 5. Further status post banding on 08/03/2017. He also had cauterization of the AVM involving duodenal bulb. REVIEW OF SYSTEMS: Constitutional: High fever of 102 over the last couple of days. No abdominal pain, no coughing, no frequent urination. CENTER MEDICAL DIRECTOR: No TIA, no seizure disorder. No chronic headache, no syncope. Respiratory: No history of chronic cough, hemoptysis, or dyspnea. Cardiovascular system: No chest pain , no palpitation, no orthopnea or PND. Gastrointestinal: No abdominal pain, no nausea or vomiting, no diarrhea, no tarry stool. Genitourinary: No dysuria or hematuria or any frequent urination. Musculoskeletal: Some back pain. Neuropsychiatric: Anxiety, depression. PHYSICAL EXAMINATION: GENERAL: Patient is obese. He is awake, alert, and communicative. He is oriented to time, place and person. VITAL SIGNS: Temperature 98.4 degrees Fahrenheit, pulse is 76, blood pressure is 104/53. HEENT: Conjunctivae clear. NECK: Supple. No adenitis or thyromegaly noted. CARDIOVASCULAR SYSTEM: First and second heart sounds normal. LUNGS: Clear to auscultation. ABDOMEN: Distended with ascites. Abdomen is nontender. There is no organomegaly or masses. EXTREMITIES: Reveal no edema. LABORATORY DATA: Showed leukocytosis. PT is 12.1, INR is 1.9. Lactic acid 2.6. Urinalysis is negative. The ascitic fluid total wbc 435, the lymphocytes 24, neutrophils 7. Mostly non-hematological of 69%. Glucose 131. Protein is 2. David is 66. CLINICAL IMPRESSION: 1. A 61-year-old, male with liver cirrhosis, portal hypertension, ascites. The patient underwent EGD and variceal banding two days ago. The patient has no localized symptoms for fever. Also, physical findings are not suggestive of Spontaneous Bacterial peritonitis. He is afebrile at the present time. The abdominal exam is very benign. 2. Obesity. 3. Aortic valve replacement. 4. Diabetes. 5. Hypertension. 6. Hyperlipidemia. 7. Coronary artery disease. RECOMMENDATIONS: 1. Empiric antibiotic therapy. 2. We will await blood culture and peritoneal fluid culture. 3. I will make further recommendation after culture results. MTDD
--- NOTE | 2017-08-08 01:34 | PRG ---
DATE OF SERVICE: 08/07/2017 SUBJECTIVE: This is a 61-year-old, male hospitalized with a fever of 102 and chills. The workup has been basically negative. His chest x-ray is normal. His peritoneal fluid does not show any evidence of infection although his white cell count is high. The culture of his peritoneal fluid is negative so far. He actually is feeling better. He has some fever of 100 degrees yesterday, but today, he is afebrile. OBJECTIVE: VITAL SIGNS: Temperature today 98.2 degrees Fahrenheit, pulse is 75, blood pressure is 104/_60.. CARDIOVASCULAR SYSTEM AND LUNGS: Within normal limits. ABDOMEN: Soft to palpate. No organomegaly. No tenderness. He still has ascites. IMPRESSION: 1. Fever, etiology unclear and seems to be resolving after some time. 2. Negative chest x-ray. 3. Negative peritoneal fluid. RECOMMENDATIONS: 1. Continue empiric antibiotic therapy. 2. Follow up labs. TRE
[2017-08-08] MEDS: Vancomycin HCl 1.5 GM in Sodium Chloride 0.9% 250 ML 300 ML IVPB SCH ×2 (05:24→18:18)
[2017-08-08 05:49] LABS: Anion Gap 10 mmol/L (10-20); BUN (Urea Nitrogen) 15 mg/dL (8.4-25.7); Calc. Creatinine Clearance 166 mL/min (70-130); Calcium 8.5 mg/dL (7.8-10.44); Carbon Dioxide 22 mmol/L (23-31); Chloride 100 mmol/L (98-107); Estimated GFR-MDRD Greater than 90; Glucose 89 mg/dL (80-115); Potassium 4.3 mmol/L (3.5-5.1); Sodium 128 mmol/L (136-145); Vancomycin, Trough 13.9 ug/mL
[2017-08-08 06:30] LABS: Anisocytosis SLIGHT = 6-15 cells (100X) (0-5/hpf); Band 17 % (5-11); Eosinophils 2 % (0-10); Hemoglobin 8.3 g/dL (14.0-18.0); Lymphocytes 8 % (21-51); MDiff Complete? YES; Mean Corpuscular HGB CONC 32.9 g/dL (32.0-36.0); Mean Corpuscular Volume 85.2 fL (78.0-98.0); Mean Platelet Volume 9.7 fL (7.4-10.4); Monocytes 22 % (0-10); Neutrophil 50 % (42-75); PLT Morphology Comment Appears Decreased; Platelet Count 64 thou/uL (130-400); RBC Distribution Width 15.9 % (11.5-14.5); Red Blood Cell (RBC) Count 2.95 mill/uL (4.70-6.10); White Blood Cell (WBC) Count 6.3 thou/uL (4.8-10.8)
[2017-08-08] MEDS: Saccharomyces boulardii 250 MG CAP PO SCH (08:29)
--- NOTE | 2017-08-08 10:30 | PDOC.PN ---
- Subjective Encounter Start Date: 08/08/17 Encounter Start Time: 09:30 Patient seen and examined for fever. No new complaints. No overnight events - Objective Resuscitation Status: Resuscitation Status FULL:Full Resuscitation MAR Reviewed: Yes Vital Signs & Weight: Vital Signs (12 hours) Temp Pulse Resp BP Pulse Ox 08/08/17 07:32 98.1 F 80 18 110/68 96 08/08/17 04:00 98.4 F 85 18 114/67 93 L 08/08/17 00:00 98.3 F 81 18 123/73 96 Weight Weight 245 lb 11.2 oz I&O: 08/07/17 08/08/17 08/09/17 06:59 06:59 06:59 Intake Total 1340 1583 Output Total 6673 2775 Balance -0377 -7197 Result Diagrams: 08/08/17 04:47 08/08/17 04:47 Phys Exam - Physical Examination Constitutional: NAD HEENT: PERRLA, moist MMs, sclera anicteric Neck: no JVD, supple Respiratory: no wheezing, no rales, no rhonchi Cardiovascular: RRR, no significant murmur, no rub, gallop prosthetic click+ Gastrointestinal: soft, positive bowel sounds ascites+ Musculoskeletal: no edema, pulses present Neurological: non-focal, normal sensation Lymphatic: no nodes Psychiatric: normal affect, A&O x 3 Skin: no rash, normal turgor Dx/Plan (1) SBP (spontaneous bacterial peritonitis) Code(s): K65.2 - SPONTANEOUS BACTERIAL PERITONITIS Status: Suspected (2) AVM (arteriovenous malformation) of duodenum, acquired Code(s): K31.819 - ANGIODYSPLASIA OF STOMACH AND DUODENUM WITHOUT BLEEDING Status: Acute (3) Sepsis with acute organ dysfunction Code(s): A41.9 - SEPSIS, UNSPECIFIED ORGANISM; R65.20 - SEVERE SEPSIS WITHOUT SEPTIC SHOCK Status: Acute (4) Alcohol abuse Code(s): F10.10 - ALCOHOL ABUSE, UNCOMPLICATED Status: Chronic (5) Anemia, normocytic normochromic Code(s): D64.9 - ANEMIA, UNSPECIFIED Status: Chronic (6) CAD (coronary artery disease) Code(s): I25.10 - ATHSCL HEART DISEASE OF [place] CORONARY ARTERY W/O ANG PCTRS Status: Chronic Qualifiers: Comment: Stable. Chest pain free. Will continue home meds. ASA being held 2/2 occult blood + (7) Chronic diastolic CHF (congestive heart failure), NYHA class 3 Code(s): I50.32 - CHRONIC DIASTOLIC (CONGESTIVE) HEART FAILURE Status: Chronic Comment: Not in acute exacerbation. Continue current regimen. (8) Cirrhosis of liver with ascites Code(s): K74.60 - UNSPECIFIED CIRRHOSIS OF LIVER; R18.8 - OTHER ASCITES Status : Chronic (9) Coagulopathy Status: Chronic (10) Diabetes type 2, controlled Code(s): E11.9 - TYPE 2 DIABETES MELLITUS WITHOUT COMPLICATIONS Status: Chronic Qualifiers: Comment: (11) Esophageal varices Code(s): I85.00 - ESOPHAGEAL VARICES WITHOUT BLEEDING Status: Chronic (12) H/O gastric ulcer Code(s): Z87.19 - PERSONAL HISTORY OF OTHER DISEASES OF THE DIGESTIVE SYSTEM Status: Chronic (13) Hypertension Code(s): I10 - ESSENTIAL (PRIMARY) HYPERTENSION Status: Chronic Qualifiers: Comment: (14) Hyponatremia Code(s): E87.1 - HYPO-OSMOLALITY AND HYPONATREMIA Status: Chronic Comment: Likely 2/2 potomania/cirrhosis. Improving. (15) Obesity (BMI 30.0-34.9) Code(s): E66.9 - OBESITY, UNSPECIFIED Status: Chronic (16) S/P aortic valve replacement with bioprosthetic valve Code(s): Z95.3 - PRESENCE OF XENOGENIC HEART VALVE Status: Chronic (17) Thrombocytopenia Code(s): D69.6 - THROMBOCYTOPENIA, UNSPECIFIED Status: Chronic Comment: Likely hypersplenism/cirrhosis. Will monitor. (18) Lactic acidosis Code(s): E87.2 - ACIDOSIS Status: Resolved - Plan cont current plan of care, plan discussed w/ family, continue antibiotics * so far culture negative * will plan for discharge tomorrow * medication reviewed as below * symptomatic treatment * discussed with . Review of Systems - Review of Systems Constitutional: negative: fever, chills, sweats, weakness, malaise, other ENT: negative: Ear Pain, Ear Discharge, Nose Pain, Nose Discharge, Nose Congestion, Mouth Pain, Mouth Swelling, Throat Pain, Throat Swelling, Other Respiratory: negative: Cough, Dry, Shortness of Breath, Hemoptysis, SOB with Excertion, Pleuritic Pain, Sputum, Wheezing Cardiovascular: negative: chest pain, palpitations, orthopnea, paroxysmal nocturnal dyspnea, edema, light headedness, other Gastrointestinal: negative: Nausea, Vomiting, Abdominal Pain, Diarrhea, Constipation, Melena, Hematochezia, Other Genitourinary: negative: Dysuria, Frequency, Incontinence, Hematuria, Retention , Other Musculoskeletal: negative: Neck Pain, Shoulder Pain, Arm Pain, Back Pain, Hand Pain, Leg Pain, Foot Pain, Other - Medications/Allergies Allergies/Adverse Reactions: Allergies Allergy/AdvReac Type Severity Reaction Status Date / Time cephalexin [From Keflex] Allergy Rash Verified 08/02/17 13:31 Medications: Current Medications Acetaminophen (Tylenol) 650 mg PO Q4H PRN PRN Reason: Headache/Fever or Pain Hydrocodone Bitart/Acetaminophen ([place] 5/325) 1 tab PO Q4H PRN PRN Reason: Moderate Pain (4-6) Al Hydroxide/Mg Hydroxide (Maalox) 30 ml PO Q6H PRN PRN Reason: Heartburn or Indigestion Albuterol/Ipratropium (Duoneb) 3 ml NEB [id number] PRN PRN Reason: SOB &/or Wheezing Artificial Tears (Tears Renewed 15ml Bottle) 0 drop EA EYE PRN PRN PRN Reason: Dry Eyes Guaifenesin (Robitussin Sf) 200 mg PO Q4H PRN PRN Reason: Cough Hydralazine HCl (Apresoline) 5 mg SLOW IVP Q4H PRN PRN Reason: Systolic BP > 180 Levofloxacin 500 mg/ Device 100 mls @ 100 mls/hr IVPB Q24HR [facility] Last Admin: 08/07/17 16:19 Dose: 100 mls Vancomycin HCl 1.5 gm/ Sodium (Chloride) 300 mls @ 200 mls/hr IVPB 0500,1700 [facility] Last Admin: 08/08/17 05:24 Dose: 300 mls Loperamide HCl (Imodium) 2 mg PO PRN PRN PRN Reason: Diarrhea/Loose Stools Loratadine (Claritin) 10 mg PO DAILYPRN PRN PRN Reason: Sinus Symptoms Magnesium Hydroxide (Milk Of Magnesium) 30 ml PO DAILYPRN PRN PRN Reason: Constipation Mineral Oil/White Petrolatum (Eucerin Cream) 0 gm TOP BIDPRN PRN PRN Reason: Dry Skin Miscellaneous Medication (Pharmacy To Dose) 1 each IVPB PRN PRN PRN Reason: Pharmacy to dose Ondansetron HCl (Zofran Odt) 4 mg PO Q6H PRN PRN Reason: Nausea/Vomiting Ondansetron HCl (Zofran) 4 mg IVP Q6H PRN PRN Reason: Nausea/Vomiting Pantoprazole Sodium (Protonix) 40 mg PO DAILY [facility] Last Admin: 08/08/17 08:28 Dose: 40 mg Phenol (Chloraseptic [place] 180 Ml Bot) 0 ml PO PRN PRN PRN Reason: Sore Throat Saccharomyces Boulardii (Florastor) 250 mg PO DAILY [facility] Last Admin: 08/08/17 08:29 Dose: 250 mg Senna (Senokot) 2 tab PO HSPRN PRN PRN Reason: Constipation Sodium Chloride ([place] Nasal [place] 0.65%) 0 ml EA NARE QIDPRN PRN PRN Reason: Nasal Congestion Zolpidem Tartrate (Ambien) 5 mg PO HSPRN PRN PRN Reason: Insomnia
[2017-08-09] MEDS: Vancomycin HCl 1.5 GM in Sodium Chloride 0.9% 250 ML 300 ML IVPB SCH (04:59)
[2017-08-09] MEDS: Saccharomyces boulardii 250 MG CAP PO SCH (08:30)
--- NOTE | 2017-08-09 09:40 | PDOC.PN ---
- Subjective Encounter Start Date: 08/09/17 Encounter Start Time: 09:00 Patient seen and examined for fever. No new complaints. No overnight events - Objective Resuscitation Status: Resuscitation Status FULL:Full Resuscitation MAR Reviewed: Yes Vital Signs & Weight: Vital Signs (12 hours) Temp Pulse Resp BP BP Pulse Ox 08/09/17 07:07 99 F 97 16 105/60 98 08/09/17 04:00 98.1 F 91 18 106/65 97 08/08/17 22:00 98.7 F 86 18 97 Weight Weight 245 lb 11.2 oz I&O: 08/08/17 08/09/17 08/10/17 06:59 06:59 06:59 Intake Total 1583 700 Output Total 2775 5200 Balance -1192 -4500 Result Diagrams: 08/08/17 04:47 08/08/17 04:47 Phys Exam - Physical Examination Constitutional: NAD HEENT: PERRLA, moist MMs, sclera anicteric Neck: no JVD, supple Respiratory: no wheezing, no rales, no rhonchi Cardiovascular: RRR, no significant murmur, no rub Gastrointestinal: soft, positive bowel sounds ascites+ Musculoskeletal: no edema, pulses present Neurological: non-focal, normal sensation, moves all 4 limbs Lymphatic: no nodes Psychiatric: normal affect, A&O x 3 Skin: no rash, normal turgor Dx/Plan (1) Bacteremia due to Streptococcus Code(s): R78.81 - BACTEREMIA; B95.5 - UNSP STREPTOCOCCUS THE CAUSE OF DISEASES CLASSD ELSWHR Status: Acute (2) SBP (spontaneous bacterial peritonitis) Code(s): K65.2 - SPONTANEOUS BACTERIAL PERITONITIS Status: Suspected (3) AVM (arteriovenous malformation) of duodenum, acquired Code(s): K31.819 - ANGIODYSPLASIA OF STOMACH AND DUODENUM WITHOUT BLEEDING Status: Acute (4) Sepsis with acute organ dysfunction Code(s): A41.9 - SEPSIS, UNSPECIFIED ORGANISM; R65.20 - SEVERE SEPSIS WITHOUT SEPTIC SHOCK Status: Acute (5) Alcohol abuse Code(s): F10.10 - ALCOHOL ABUSE, UNCOMPLICATED Status: Chronic (6) Anemia, normocytic normochromic Code(s): D64.9 - ANEMIA, UNSPECIFIED Status: Chronic (7) CAD (coronary artery disease) Code(s): I25.10 - ATHSCL HEART DISEASE OF [place] CORONARY ARTERY W/O ANG PCTRS Status: Chronic Qualifiers: Comment: Stable. Chest pain free. Will continue home meds. ASA being held 2/2 occult blood + (8) Chronic diastolic CHF (congestive heart failure), NYHA class 3 Code(s): I50.32 - CHRONIC DIASTOLIC (CONGESTIVE) HEART FAILURE Status: Chronic Comment: Not in acute exacerbation. Continue current regimen. (9) Cirrhosis of liver with ascites Code(s): K74.60 - UNSPECIFIED CIRRHOSIS OF LIVER; R18.8 - OTHER ASCITES Status : Chronic (10) Coagulopathy Status: Chronic (11) Diabetes type 2, controlled Code(s): E11.9 - TYPE 2 DIABETES MELLITUS WITHOUT COMPLICATIONS Status: Chronic Qualifiers: Comment: (12) Esophageal varices Code(s): I85.00 - ESOPHAGEAL VARICES WITHOUT BLEEDING Status: Chronic (13) H/O gastric ulcer Code(s): Z87.19 - PERSONAL HISTORY OF OTHER DISEASES OF THE DIGESTIVE SYSTEM Status: Chronic (14) Hypertension Code(s): I10 - ESSENTIAL (PRIMARY) HYPERTENSION Status: Chronic Qualifiers: Comment: (15) Hyponatremia Code(s): E87.1 - HYPO-OSMOLALITY AND HYPONATREMIA Status: Chronic Comment: Likely 2/2 potomania/cirrhosis. Improving. (16) Obesity (BMI 30.0-34.9) Code(s): E66.9 - OBESITY, UNSPECIFIED Status: Chronic (17) S/P aortic valve replacement with bioprosthetic valve Code(s): Z95.3 - PRESENCE OF XENOGENIC HEART VALVE Status: Chronic (18) Thrombocytopenia Code(s): D69.6 - THROMBOCYTOPENIA, UNSPECIFIED Status: Chronic Comment: Likely hypersplenism/cirrhosis. Will monitor. (19) Lactic acidosis Code(s): E87.2 - ACIDOSIS Status: Resolved - Plan cont current plan of care, continue antibiotics * blood culture is positive for streptoccocus vestibularis, will consult ID * dicontinue vancomycin * continue levaquin * medication reviewed as below * symptomatic treatment. Review of Systems - Review of Systems Eyes: negative: Pain, Vision Change, Conjunctivae Inflammation, Eyelid Inflammation, Redness, Other ENT: negative: Ear Pain, Ear Discharge, Nose Pain, Nose Discharge, Nose Congestion, Mouth Pain, Mouth Swelling, Throat Pain, Throat Swelling, Other Respiratory: negative: Cough, Dry, Shortness of Breath, Hemoptysis, SOB with Excertion, Pleuritic Pain, Sputum, Wheezing Cardiovascular: negative: chest pain, palpitations, orthopnea, paroxysmal nocturnal dyspnea, edema, light headedness, other Gastrointestinal: negative: Nausea, Vomiting, Abdominal Pain, Diarrhea, Constipation, Melena, Hematochezia, Other Genitourinary: negative: Dysuria, Frequency, Incontinence, Hematuria, Retention , Other Musculoskeletal: negative: Neck Pain, Shoulder Pain, Arm Pain, Back Pain, Hand Pain, Leg Pain, Foot Pain, Other Skin: negative: Rash, Lesions, Nick, Bruising, Other - Medications/Allergies Allergies/Adverse Reactions: Allergies Allergy/AdvReac Type Severity Reaction Status Date / Time cephalexin [From Keflex] Allergy Rash Verified 08/02/17 13:31 Medications: Current Medications Acetaminophen (Tylenol) 650 mg PO Q4H PRN PRN Reason: Headache/Fever or Pain Hydrocodone Bitart/Acetaminophen ([place] 5/325) 1 tab PO Q4H PRN PRN Reason: Moderate Pain (4-6) Al Hydroxide/Mg Hydroxide (Maalox) 30 ml PO Q6H PRN PRN Reason: Heartburn or Indigestion Albuterol/Ipratropium (Duoneb) 3 ml NEB [id number] PRN PRN Reason: SOB &/or Wheezing Artificial Tears (Tears Renewed 15ml Bottle) 0 drop EA EYE PRN PRN PRN Reason: Dry Eyes Guaifenesin (Robitussin Sf) 200 mg PO Q4H PRN PRN Reason: Cough Hydralazine HCl (Apresoline) 5 mg SLOW IVP Q4H PRN PRN Reason: Systolic BP > 180 Levofloxacin 500 mg/ Device 100 mls @ 100 mls/hr IVPB Q24HR [facility] Last Admin: 08/08/17 15:43 Dose: 100 mls Vancomycin HCl 1.5 gm/ Sodium (Chloride) 300 mls @ 200 mls/hr IVPB 0500,1700 [facility] Last Admin: 08/09/17 04:59 Dose: 300 mls Loperamide HCl (Imodium) 2 mg PO PRN PRN PRN Reason: Diarrhea/Loose Stools Loratadine (Claritin) 10 mg PO DAILYPRN PRN PRN Reason: Sinus Symptoms Magnesium Hydroxide (Milk Of Magnesium) 30 ml PO DAILYPRN PRN PRN Reason: Constipation Mineral Oil/White Petrolatum (Eucerin Cream) 0 gm TOP BIDPRN PRN PRN Reason: Dry Skin Miscellaneous Medication (Pharmacy To Dose) 1 each IVPB PRN PRN PRN Reason: Pharmacy to dose Ondansetron HCl (Zofran Odt) 4 mg PO Q6H PRN PRN Reason: Nausea/Vomiting Ondansetron HCl (Zofran) 4 mg IVP Q6H PRN PRN Reason: Nausea/Vomiting Pantoprazole Sodium (Protonix) 40 mg PO DAILY [facility] Last Admin: 08/09/17 08:30 Dose: 40 mg Phenol (Chloraseptic [place] 180 Ml Bot) 0 ml PO PRN PRN PRN Reason: Sore Throat Saccharomyces Boulardii (Florastor) 250 mg PO DAILY [facility] Last Admin: 08/09/17 08:30 Dose: 250 mg Senna (Senokot) 2 tab PO HSPRN PRN PRN Reason: Constipation Sodium Chloride ([place] Nasal [place] 0.65%) 0 ml EA NARE QIDPRN PRN PRN Reason: Nasal Congestion Zolpidem Tartrate (Ambien) 5 mg PO HSPRN PRN PRN Reason: Insomnia
--- NOTE | 2017-08-09 10:15 | PRG ---
DATE OF SERVICE: 08/08/2017 SUBJECTIVE: This is a 61-year-old male hospitalized because of fever of 102-103.5. He also had some chills. Chest x-ray normal. Also, the ascitic fluid tap came back negative for any peritonitis. Blood culture is pending. The patient had no fever over the last one year. He has no abdominal pain. No nausea or vomiting. OBJECTIVE: GENERAL: He is obese, appears comfortable. VITAL SIGNS: He is afebrile, temperature 98.1 degrees Fahrenheit, pulse is 84, blood pressure 118/67. CARDIOVASCULAR: First and second heart sounds normal. LUNGS: Clear to auscultation. ABDOMEN: Distended with ascites. Abdomen is nontender. LABORATORY DATA: The lab data from today, CBC shows WBC 6300, hemoglobin 8.3, hematocrit 24.2, platelet count 64,000. RECOMMENDATION: Continue antibiotics for another day. If she remains afebrile, may consider discharge home tomorrow. TRE
--- NOTE | 2017-08-09 13:55 | CON ---
DATE OF CONSULTATION: 08/09/2017 REASON FOR CONSULTATION: Bacteremia. HISTORY OF PRESENT ILLNESS: A 61-year-old who has a history of alcoholism with liver cirrhosis with portal hypertension, severe aortic stenosis, status post aortic valve replacement with a tissue valve in 2016, who was admitted with acute on chronic congestive heart failure, 02/2017 and then on 2017 was admitted with Streptococcus mitis bacteremia and erosive esophagitis. The patient was disch arged on levofloxacin and now he presents with a fever which developed about a week ago before admiss ion. The temperature elevation persisted and he went to the emergency room and went to [facility] Room and because of blood test findings he was admitted. Initial results included a temperatur e of 99.5, O2 sat 97%, blood pressure 109/57, pulse 85, respirations 22. The exam was fairly unremar kable. Chest x-ray with no acute findings. White cell count 17,000 and carbon dioxide 19, creatinin e 1.35. Currently, he is feeling well. Denies headaches, visual symptoms, sore throat, odynophagia, dysphagi a. No dyspnea or chest pain. No abdominal pain, diarrhea, or genitourinary symptoms. No back pain. No other joint symptoms. No neurological symptoms. PAST MEDICAL HISTORY: Alcoholism with liver cirrhosis, portal hypertension, erosive esophagitis. Re cent EGD with biopsy, aortic stenosis with a valve replacement in 2016. Strep mitis bacteremia a few weeks ago, ascites. SOCIAL HISTORY: Retired, lives in [place] with . Quit drinking many years ago. For dharmesh smoker. PAST SURGICAL HISTORY: Also includes sinus surgery, right knee surgery, left hip replacement, esopha geal variceal banding. FAMILY HISTORY: Noncontributory. CURRENT MEDICATIONS: Tylenol, Call[place], Maalox, DuoNeb, Robitussin, Apresoline, levofloxacin, Imodium, Zofran. PHYSICAL EXAMINATION: VITAL SIGNS: T-max 100.1, blood pressure 100/64, pulse 91, respirations 16, O2 sat 98-100%. GENERAL: He is in no distress. SKIN: Normal. Peripheral IV access. No Vicente catheter. No lymphadenopathy. HEENT: Ocular movements are conjugate. Oral cavity with quite a few teeth in place with some decay. Moist mucosa, no lesions. NECK: Supple, no jugular vein distention. LUNGS: Symmetric, clear breath sounds. HEART: S1, S2 with a soft 2/6 murmur at the aortic area and muffled S2, no S3. Regular rate. ABDOMEN: Soft, not distended or tender. No ascites. No bladder distention. EXTREMITIES: No joint inflammatory activity. Moves extremities equally. Plantar responses are flex or. Pulses 1+ in dorsalis pedis. NEUROLOGIC: Cognitive function appears to be intact. LABORATORY AND X-RAY FINDINGS: White cell count 9.1 and 6.3, hemoglobin 10.4, MCV 84, platelets 64,0 00, 79% neutrophils. INR 1.9, sodium 127, creatinine 0.86, bilirubin 1.43, AST 37, ALT 22, alkaline phosphatase 109, albumin 2.6. Urinalysis with 0-3 WBCs. The patient had ascites fluid tapped and curtis d 435 WBCs, a predominance of lymphocytes, and nonhematological cells. Vancomycin trough 10.9. His ascitic fluid cultures pending. Streptococcus vestibularis 2/2 sets of blood cultures. ASSESSMENT: 1. Prior alcoholism with liver cirrhosis with portal hypertension. 2. Recent EGD. 3. Aortic valve replacement with prosthetic tissue valve. 4. Streptococcus vestibularis bacteremia. DISCUSSION: The main concern here is with endocarditis, strep vestibulitis and oral cavity Streptoco ccus and has been described with endocarditis, particularly prosthetic valves in the past. Other pos sibility would be transient bacteremia associated with EGD procedure done recently. Finally, a liver abscess would be a possibility. We will check CT of the liver with contrast and request for a trans esophageal echocardiogram evaluation. We will treat him with Rocephin. They reported allergies a shiv g time ago and it was just a skin rash, so I think he should be able to tolerate Rocephin well which would make it easier treatment course.
[2017-08-09] MEDS: cefTRIAXone\\ROCEPHIN 2 GM in Sodium Chloride 0.9% 100 ML IVPB SCH (14:45)
--- NOTE | 2017-08-09 15:43 | CT ---
ABDOMEN CT WITH AND WITHOUT CONTRAST PELVIC CT WITH CONTRAST: HISTORY: Evaluate liver parenchyma. Bacteremia. Assess for possible abscess. TECHNIQUE: Abdomen CT is performed with and without contrast. Pelvic CT is performed with contrast. Coronal r eformatted images are submitted for interpretation. FINDINGS: ABDOMEN CT: Lung bases are clear. Prosthetic heart valve is noted. Heart size is normal. No significant perica rdial fluid. Visualized aorta has a normal caliber. No periaortic fact stranding. Sclerotic change in the liver. There is splenomegaly with the spleen measuring 17 cm. Portal vein i s patent. No masses within the liver. Pancreas and adrenal glands are appropriate in terms of enhancement. Symmetric enhancement of the ki dneys. Bilaterally, no obstructive uropathy. There is evidence of ascites. Limited evaluation of the alimentary canal. No evidence of bowel obstruction. The ileocecal junctio n is normal. A definite appendix is not appreciated. Evaluation for inflammatory change of the ceca l apex is limited by technique. Scattered fecal material in the nondistended, nondilated colon. Div erticulosis, without evidence of diverticulitis. PELVIC CT: There is a small amount of free fluid in the pelvis. No mass, lymphadenopathy, or free air. The uri nary bladder is unremarkable. No lytic or blastic lesions of the osseous structures. IMPRESSION: 1. Ascites. 2. Cirrhosis. 3. No evidence of intrahepatic abscess. 4. Splenomegaly. POS: [facility]
--- NOTE | 2017-08-10 01:11 | PRG ---
DATE OF SERVICE: 08/09/2017 HISTORY OF PRESENT ILLNESS: This is a 61-year-old male with liver cirrhosis, ascites, and also esophageal varices. He underwent EGD and variceal banding last week. He came to the ER because of fever and chills. The ascitic fluid is negative for any peritonitis. He had fever on the 1st da y, but he has been remained afebrile. The patient was seen by Dr. Cong Matos, ID systems security consultant [facility] of positive blood culture. The blood culture is growing Streptococcus. The patient is on IV Roce phin. An abdominal CAT scan shows liver, but this is esophagitis. WILLIAMS is being planned to rule out endocarditis. PHYSICAL EXAMINATION: GENERAL: He is obese, appears comfortable. VITAL SIGNS: He is afebrile. Vital signs are stable. CARDIOVASCULAR SYSTEM: First and second heart sounds normal. LUNGS: Clear to auscultation. ABDOMEN: Soft to palpate. Abdomen is nontender. CLINICAL IMPRESSION: 1. Peptic ulcer disease, etiology unclear. 2. Liver cirrhosis. 3. Ascites negative for his CONTINUITY MANAGER. 4. Esophageal varices, banding. 5. Duodenal arteriovenous malformation, status post cautery. PLAN: 1. I recommend continue antibiotics. 2. Await the WILLIAMS report.
--- NOTE | 2017-08-10 10:52 | PDOC.PN ---
- Subjective Encounter Start Date: 08/10/17 Encounter Start Time: 08:30 Patient seen and examined. No new complaints. No overnight events - Objective Resuscitation Status: Resuscitation Status FULL:Full Resuscitation MAR Reviewed: Yes Vital Signs & Weight: Vital Signs (12 hours) Temp Pulse Resp BP BP Pulse Ox 08/10/17 08:30 98.1 F 96 18 95 08/10/17 07:21 98.1 F 96 18 121/69 95 08/10/17 05:10 98.5 F 96 20 125/69 96 Weight Weight 245 lb 11.2 oz I&O: 08/09/17 08/10/17 08/11/17 06:59 06:59 06:59 Intake Total 700 0 Output Total 5200 0 Balance -4500 0 Result Diagrams: 08/08/17 04:47 08/08/17 04:47 Phys Exam - Physical Examination Constitutional: NAD HEENT: PERRLA, moist MMs, sclera anicteric Neck: no JVD, supple Respiratory: no wheezing, no rales, no rhonchi Cardiovascular: RRR, no significant murmur, no rub Gastrointestinal: soft, non-tender, no distention, positive bowel sounds Musculoskeletal: no edema, pulses present Neurological: non-focal, normal sensation, moves all 4 limbs Lymphatic: no nodes Psychiatric: normal affect, A&O x 3 Skin: no rash, normal turgor Dx/Plan (1) Bacteremia due to Streptococcus Code(s): R78.81 - BACTEREMIA; B95.5 - UNSP STREPTOCOCCUS THE CAUSE OF DISEASES CLASSD ELSWHR Status: Acute (2) SBP (spontaneous bacterial peritonitis) Code(s): K65.2 - SPONTANEOUS BACTERIAL PERITONITIS Status: Suspected (3) AVM (arteriovenous malformation) of duodenum, acquired Code(s): K31.819 - ANGIODYSPLASIA OF STOMACH AND DUODENUM WITHOUT BLEEDING Status: Acute (4) Sepsis with acute organ dysfunction Code(s): A41.9 - SEPSIS, UNSPECIFIED ORGANISM; R65.20 - SEVERE SEPSIS WITHOUT SEPTIC SHOCK Status: Acute (5) Alcohol abuse Code(s): F10.10 - ALCOHOL ABUSE, UNCOMPLICATED Status: Chronic (6) Anemia, normocytic normochromic Code(s): D64.9 - ANEMIA, UNSPECIFIED Status: Chronic (7) CAD (coronary artery disease) Code(s): I25.10 - ATHSCL HEART DISEASE OF [place] CORONARY ARTERY W/O ANG PCTRS Status: Chronic Qualifiers: Comment: Stable. Chest pain free. Will continue home meds. ASA being held 2/2 occult blood + (8) Chronic diastolic CHF (congestive heart failure), NYHA class 3 Code(s): I50.32 - CHRONIC DIASTOLIC (CONGESTIVE) HEART FAILURE Status: Chronic Comment: Not in acute exacerbation. Continue current regimen. (9) Cirrhosis of liver with ascites Code(s): K74.60 - UNSPECIFIED CIRRHOSIS OF LIVER; R18.8 - OTHER ASCITES Status : Chronic (10) Coagulopathy Status: Chronic (11) Diabetes type 2, controlled Code(s): E11.9 - TYPE 2 DIABETES MELLITUS WITHOUT COMPLICATIONS Status: Chronic Qualifiers: Comment: (12) Esophageal varices Code(s): I85.00 - ESOPHAGEAL VARICES WITHOUT BLEEDING Status: Chronic (13) H/O gastric ulcer Code(s): Z87.19 - PERSONAL HISTORY OF OTHER DISEASES OF THE DIGESTIVE SYSTEM Status: Chronic (14) Hypertension Code(s): I10 - ESSENTIAL (PRIMARY) HYPERTENSION Status: Chronic Qualifiers: Comment: (15) Hyponatremia Code(s): E87.1 - HYPO-OSMOLALITY AND HYPONATREMIA Status: Chronic Comment: Likely 2/2 potomania/cirrhosis. Improving. (16) Obesity (BMI 30.0-34.9) Code(s): E66.9 - OBESITY, UNSPECIFIED Status: Chronic (17) S/P aortic valve replacement with bioprosthetic valve Code(s): Z95.3 - PRESENCE OF XENOGENIC HEART VALVE Status: Chronic (18) Thrombocytopenia Code(s): D69.6 - THROMBOCYTOPENIA, UNSPECIFIED Status: Chronic Comment: Likely hypersplenism/cirrhosis. Will monitor. (19) Lactic acidosis Code(s): E87.2 - ACIDOSIS Status: Resolved - Plan cont current plan of care * medication reviewed as below * symptomatic treatment * today WILLIAMS * dr tamayo recommendation noted * continue IV antibiotics as below. Review of Systems - Review of Systems Eyes: negative: Pain, Vision Change, Conjunctivae Inflammation, Eyelid Inflammation, Redness, Other ENT: negative: Ear Pain, Ear Discharge, Nose Pain, Nose Discharge, Nose Congestion, Mouth Pain, Mouth Swelling, Throat Pain, Throat Swelling, Other Respiratory: negative: Cough, Dry, Shortness of Breath, Hemoptysis, SOB with Excertion, Pleuritic Pain, Sputum, Wheezing Cardiovascular: negative: chest pain, palpitations, orthopnea, paroxysmal nocturnal dyspnea, edema, light headedness, other Gastrointestinal: negative: Nausea, Vomiting, Abdominal Pain, Diarrhea, Constipation, Melena, Hematochezia, Other Genitourinary: negative: Dysuria, Frequency, Incontinence, Hematuria, Retention , Other Musculoskeletal: negative: Neck Pain, Shoulder Pain, Arm Pain, Back Pain, Hand Pain, Leg Pain, Foot Pain, Other Skin: negative: Rash, Lesions, Nick, Bruising, Other - Medications/Allergies Allergies/Adverse Reactions: Allergies Allergy/AdvReac Type Severity Reaction Status Date / Time cephalexin [From Keflex] Allergy Rash Verified 08/02/17 13:31 Medications: Current Medications Acetaminophen (Tylenol) 650 mg PO Q4H PRN PRN Reason: Headache/Fever or Pain Hydrocodone Bitart/Acetaminophen ([place] 5/325) 1 tab PO Q4H PRN PRN Reason: Moderate Pain (4-6) Al Hydroxide/Mg Hydroxide (Maalox) 30 ml PO Q6H PRN PRN Reason: Heartburn or Indigestion Albuterol/Ipratropium (Duoneb) 3 ml NEB [id number] PRN PRN Reason: SOB &/or Wheezing Artificial Tears (Tears Renewed 15ml Bottle) 0 drop EA EYE PRN PRN PRN Reason: Dry Eyes Guaifenesin (Robitussin Sf) 200 mg PO Q4H PRN PRN Reason: Cough Hydralazine HCl (Apresoline) 5 mg SLOW IVP Q4H PRN PRN Reason: Systolic BP > 180 Ceftriaxone Sodium 2 gm/ (Sodium Chloride) 100 mls @ 200 mls/hr IVPB Q24HR [facility] Last Admin: 08/09/17 14:45 Dose: 100 mls Loperamide HCl (Imodium) 2 mg PO PRN PRN PRN Reason: Diarrhea/Loose Stools Loratadine (Claritin) 10 mg PO DAILYPRN PRN PRN Reason: Sinus Symptoms Magnesium Hydroxide (Milk Of Magnesium) 30 ml PO DAILYPRN PRN PRN Reason: Constipation Last Admin: 08/09/17 12:19 Dose: 30 ml Mineral Oil/White Petrolatum (Eucerin Cream) 0 gm TOP BIDPRN PRN PRN Reason: Dry Skin Ondansetron HCl (Zofran Odt) 4 mg PO Q6H PRN PRN Reason: Nausea/Vomiting Ondansetron HCl (Zofran) 4 mg IVP Q6H PRN PRN Reason: Nausea/Vomiting Pantoprazole Sodium (Protonix) 40 mg PO DAILY [facility] Last Admin: 08/09/17 08:30 Dose: 40 mg Phenol (Chloraseptic [place] 180 Ml Bot) 0 ml PO PRN PRN PRN Reason: Sore Throat Saccharomyces Boulardii (Florastor) 250 mg PO DAILY [facility] Last Admin: 08/09/17 08:30 Dose: 250 mg Senna (Senokot) 2 tab PO HSPRN PRN PRN Reason: Constipation Sodium Chloride ([place] Nasal [place] 0.65%) 0 ml EA NARE QIDPRN PRN PRN Reason: Nasal Congestion Zolpidem Tartrate (Ambien) 5 mg PO HSPRN PRN PRN Reason: Insomnia
[2017-08-10] MEDS: Saccharomyces boulardii 250 MG CAP PO SCH (12:19)
[2017-08-10] MEDS: cefTRIAXone\\ROCEPHIN 2 GM in Sodium Chloride 0.9% 100 ML IVPB SCH (14:06)
--- NOTE | 2017-08-10 23:56 | CON ---
DATE OF CONSULTATION: 08/10/2017 REASON FOR CONSULTATION: Fever in a patient with a bioprosthetic aortic valve. HISTORY OF PRESENT ILLNESS: Mr. Gabino Manzano is a 61-year-old gentleman. He has a history of severe aortic valvular disease and ultimately underwent bioprosthetic valve placement for aortic stenosis, which was severe. There is a bioprosthetic valve #23 done 05/2016. The patient did have episode of volume overload earlier this year, underwent echocardiogram, the valve was functioning normally. The patient was admitted to the hospital on this occasion with fever, including shaking chills and was f ound to have positive blood cultures. The patient does have history of cirrhosis and has varices. T he patient had biopsy obtained from the esophagus had an AV malformation, which was cauterized, gastr ic varices were banded. The patient, as I mentioned, has had this fever including shaking chills with positive blood cultures . REVIEW OF SYSTEMS: Constitutional: No significant weight gain or loss. Vision: No changes. Heari ng: No changes. Pulmonary: No cough or wheezing. Gastrointestinal: As outlined above. Skin: No rashes. Neurologic: No unilateral weakness or numbness. Psychiatric: No unusual depression or an xiety. MEDICATIONS: 1. Metoprolol. 2. Spironolactone. 3. Lactulose. ALLERGIES: CEPHALEXIN. PHYSICAL EXAMINATION: GENERAL: A pleasant 61-year-old gentleman in no distress. VITAL SIGNS: Blood pressure now is 100/50, pulse 90, it is regular. HEENT: Eyes, sclerae nonicteric. Mouth, mucous membranes moist. NECK: Supple, no lymphadenopathy. LUNGS: Clear. No wheezing, rales or rhonchi. No wheezing, rales or rhonchi. CARDIAC: Normal S1, normal S2. There is a 2-3/6 systolic murmur at left upper sternal border and ri ght upper sternal border compatible with bioprosthetic aortic valve. No diastolic murmur, no S3. ABDOMEN: Soft, nontender. EXTREMITIES: No clubbing or cyanosis. There is no edema. LABORATORY AND X-RAY FINDINGS: Pertinent laboratories; hemoglobin is 8.3, sodium is 128. WBC 6.3. Blood cultures positive for Strep vestibularis x2. ASSESSMENT: 1. Previous aortic valve replacement, bioprosthetic. 2. Bacteremia. 3. Cirrhosis. 4. Recent procedure of the upper GI tract. PLAN: 1. Echocardiogram to be done tomorrow, transthoracic first. 2. If necessary, can proceed to transesophageal echo, would need to check with information assurance manager fi rst to see if that is okay with them to instrument the patient with a transesophageal echo probe just as quickly after their procedure.
[2017-08-11] MEDS: Saccharomyces boulardii 250 MG CAP PO SCH (07:49)
[2017-08-11 08:38] LABS: Hemoglobin 8.6 g/dL (14.0-18.0); Mean Corpuscular HGB CONC 32.7 g/dL (32.0-36.0); Mean Corpuscular Volume 85.6 fL (78.0-98.0); Platelet Count 73 thou/uL (130-400); RBC Distribution Width 15.8 % (11.5-14.5); Red Blood Cell (RBC) Count 3.08 mill/uL (4.70-6.10); White Blood Cell (WBC) Count 5.9 thou/uL (4.8-10.8)
[2017-08-11 08:43] LABS: ALT (SGPT) 24 U/L (8-55); AST (SGOT) 45 U/L (5-34); Albumin 2.9 g/dL (3.4-4.8); Alkaline Phosphatase 137 U/L (40-150); Anion Gap 9 mmol/L (10-20); BUN (Urea Nitrogen) 7 mg/dL (8.4-25.7); Bilirubin, Total 1.3 mg/dL (0.2-1.2); CRP (Inflammatory) 3.03 mg/dL (= or < 0.5); Calc. Creatinine Clearance 163 mL/min (70-130); Calcium 8.6 mg/dL (7.8-10.44); Carbon Dioxide 26 mmol/L (23-31); Chloride 101 mmol/L (98-107); Estimated GFR-MDRD Greater than 90; Globulin 4.2 g/dL (2.4-3.5); Glucose 97 mg/dL (80-115); Potassium 4.2 mmol/L (3.5-5.1); Protein, Total 7.1 g/dL (5.8-8.1); Sodium 132 mmol/L (136-145)
[2017-08-11 09:37] LABS: Band 10 % (5-11); Eosinophils 4 % (0-10); Lymphocytes 18 % (21-51); MDiff Complete? YES; Monocytes 11 % (0-10); Neutrophil 57 % (42-75); PLT Morphology Comment Appears Decreased; Polychromasia SLIGHT = 2-3 cells (100X) (0-2/hpf)
--- NOTE | 2017-08-11 10:53 | PDOC.PN ---
- Subjective Encounter Start Date: 08/11/17 Encounter Start Time: 09:00 Patient seen and examined for bacteremia. No new complaints. No overnight events - Objective Resuscitation Status: Resuscitation Status FULL:Full Resuscitation MAR Reviewed: Yes Vital Signs & Weight: Vital Signs (12 hours) Temp Pulse Resp BP Pulse Ox 08/11/17 07:39 98 F 83 20 96 08/11/17 07:34 98 F 83 20 116/70 96 08/11/17 07:06 98.3 F 89 16 110/68 98 Weight Weight 245 lb 11.2 oz I&O: 08/10/17 08/11/17 08/12/17 06:59 06:59 06:59 Intake Total 2049 1800 Output Total 20490 Balance 0 -500 Result Diagrams: 08/11/17 08:08 08/11/17 08:08 Phys Exam - Physical Examination Constitutional: NAD HEENT: PERRLA, moist MMs, sclera anicteric Neck: no JVD, supple Respiratory: no wheezing, no rales, no rhonchi Cardiovascular: RRR, no significant murmur, no rub Gastrointestinal: soft, non-tender, positive bowel sounds ascites+ Musculoskeletal: no edema, pulses present Neurological: non-focal, normal sensation Lymphatic: no nodes Psychiatric: normal affect, A&O x 3 Skin: no rash, normal turgor Dx/Plan (1) Bacteremia due to Streptococcus Code(s): R78.81 - BACTEREMIA; B95.5 - UNSP STREPTOCOCCUS THE CAUSE OF DISEASES CLASSD ELSWHR Status: Acute (2) SBP (spontaneous bacterial peritonitis) Code(s): K65.2 - SPONTANEOUS BACTERIAL PERITONITIS Status: Suspected (3) AVM (arteriovenous malformation) of duodenum, acquired Code(s): K31.819 - ANGIODYSPLASIA OF STOMACH AND DUODENUM WITHOUT BLEEDING Status: Acute (4) Sepsis with acute organ dysfunction Code(s): A41.9 - SEPSIS, UNSPECIFIED ORGANISM; R65.20 - SEVERE SEPSIS WITHOUT SEPTIC SHOCK Status: Acute (5) Alcohol abuse Code(s): F10.10 - ALCOHOL ABUSE, UNCOMPLICATED Status: Chronic (6) Anemia, normocytic normochromic Code(s): D64.9 - ANEMIA, UNSPECIFIED Status: Chronic (7) CAD (coronary artery disease) Code(s): I25.10 - ATHSCL HEART DISEASE OF [place] CORONARY ARTERY W/O ANG PCTRS Status: Chronic Qualifiers: Comment: Stable. Chest pain free. Will continue home meds. ASA being held 2/2 occult blood + (8) Chronic diastolic CHF (congestive heart failure), NYHA class 3 Code(s): I50.32 - CHRONIC DIASTOLIC (CONGESTIVE) HEART FAILURE Status: Chronic Comment: Not in acute exacerbation. Continue current regimen. (9) Cirrhosis of liver with ascites Code(s): K74.60 - UNSPECIFIED CIRRHOSIS OF LIVER; R18.8 - OTHER ASCITES Status : Chronic (10) Coagulopathy Status: Chronic (11) Diabetes type 2, controlled Code(s): E11.9 - TYPE 2 DIABETES MELLITUS WITHOUT COMPLICATIONS Status: Chronic Qualifiers: Comment: (12) Esophageal varices Code(s): I85.00 - ESOPHAGEAL VARICES WITHOUT BLEEDING Status: Chronic (13) H/O gastric ulcer Code(s): Z87.19 - PERSONAL HISTORY OF OTHER DISEASES OF THE DIGESTIVE SYSTEM Status: Chronic (14) Hypertension Code(s): I10 - ESSENTIAL (PRIMARY) HYPERTENSION Status: Chronic Qualifiers: Comment: (15) Hyponatremia Code(s): E87.1 - HYPO-OSMOLALITY AND HYPONATREMIA Status: Chronic Comment: Likely 2/2 potomania/cirrhosis. Improving. (16) Obesity (BMI 30.0-34.9) Code(s): E66.9 - OBESITY, UNSPECIFIED Status: Chronic (17) S/P aortic valve replacement with bioprosthetic valve Code(s): Z95.3 - PRESENCE OF XENOGENIC HEART VALVE Status: Chronic (18) Thrombocytopenia Code(s): D69.6 - THROMBOCYTOPENIA, UNSPECIFIED Status: Chronic Comment: Likely hypersplenism/cirrhosis. Will monitor. (19) Lactic acidosis Code(s): E87.2 - ACIDOSIS Status: Resolved - Plan cont current plan of care, continue antibiotics * as per cardiology, TTE today, only if needed WILLIAMS once GI OK, as he had recent upper endoscopy * medication reviewed as below * symptomatic treatment * continue rocephin * Dr Matos to decide about duration of therapy and antibiotics oral or IV on discharge * will repeat blood culture today * stable otherwise. Review of Systems - Review of Systems Eyes: negative: Pain, Vision Change, Conjunctivae Inflammation, Eyelid Inflammation, Redness, Other ENT: negative: Ear Pain, Ear Discharge, Nose Pain, Nose Discharge, Nose Congestion, Mouth Pain, Mouth Swelling, Throat Pain, Throat Swelling, Other Respiratory: negative: Cough, Dry, Shortness of Breath, Hemoptysis, SOB with Excertion, Pleuritic Pain, Sputum, Wheezing Cardiovascular: negative: chest pain, palpitations, orthopnea, paroxysmal nocturnal dyspnea, edema, light headedness, other Gastrointestinal: negative: Nausea, Vomiting, Abdominal Pain, Diarrhea, Constipation, Melena, Hematochezia, Other Genitourinary: negative: Dysuria, Frequency, Incontinence, Hematuria, Retention , Other Musculoskeletal: negative: Neck Pain, Shoulder Pain, Arm Pain, Back Pain, Hand Pain, Leg Pain, Foot Pain, Other Skin: negative: Rash, Lesions, Nick, Bruising, Other - Medications/Allergies Allergies/Adverse Reactions: Allergies Allergy/AdvReac Type Severity Reaction Status Date / Time cephalexin [From Keflex] Allergy Rash Verified 08/02/17 13:31 Medications: Current Medications Acetaminophen (Tylenol) 650 mg PO Q4H PRN PRN Reason: Headache/Fever or Pain Hydrocodone Bitart/Acetaminophen ([place] 5/325) 1 tab PO Q4H PRN PRN Reason: Moderate Pain (4-6) Al Hydroxide/Mg Hydroxide (Maalox) 30 ml PO Q6H PRN PRN Reason: Heartburn or Indigestion Albuterol/Ipratropium (Duoneb) 3 ml NEB [id number] PRN PRN Reason: SOB &/or Wheezing Artificial Tears (Tears Renewed 15ml Bottle) 0 drop EA EYE PRN PRN PRN Reason: Dry Eyes Guaifenesin (Robitussin Sf) 200 mg PO Q4H PRN PRN Reason: Cough Hydralazine HCl (Apresoline) 5 mg SLOW IVP Q4H PRN PRN Reason: Systolic BP > 180 Ceftriaxone Sodium 2 gm/ (Sodium Chloride) 100 mls @ 200 mls/hr IVPB Q24HR [facility] Last Admin: 08/10/17 14:06 Dose: 100 mls Loperamide HCl (Imodium) 2 mg PO PRN PRN PRN Reason: Diarrhea/Loose Stools Loratadine (Claritin) 10 mg PO DAILYPRN PRN PRN Reason: Sinus Symptoms Magnesium Hydroxide (Milk Of Magnesium) 30 ml PO DAILYPRN PRN PRN Reason: Constipation Last Admin: 08/09/17 12:19 Dose: 30 ml Mineral Oil/White Petrolatum (Eucerin Cream) 0 gm TOP BIDPRN PRN PRN Reason: Dry Skin Ondansetron HCl (Zofran Odt) 4 mg PO Q6H PRN PRN Reason: Nausea/Vomiting Ondansetron HCl (Zofran) 4 mg IVP Q6H PRN PRN Reason: Nausea/Vomiting Pantoprazole Sodium (Protonix) 40 mg PO DAILY [facility] Last Admin: 08/11/17 07:49 Dose: 40 mg Phenol (Chloraseptic [place] 180 Ml Bot) 0 ml PO PRN PRN PRN Reason: Sore Throat Saccharomyces Boulardii (Florastor) 250 mg PO DAILY [facility] Last Admin: 08/11/17 07:49 Dose: 250 mg Senna (Senokot) 2 tab PO HSPRN PRN PRN Reason: Constipation Sodium Chloride ([place] Nasal [place] 0.65%) 0 ml EA NARE QIDPRN PRN PRN Reason: Nasal Congestion Zolpidem Tartrate (Ambien) 5 mg PO HSPRN PRN PRN Reason: Insomnia
[2017-08-11] MEDS: cefTRIAXone\\ROCEPHIN 2 GM in Sodium Chloride 0.9% 100 ML IVPB SCH (14:04)
--- NOTE | 2017-08-11 20:52 | PRG ---
DATE OF SERVICE: 08/11/2017 HISTORY: Mr. Manzano is doing well. He is afebrile. PHYSICAL EXAMINATION: VITAL SIGNS: Blood pressure 115/68, pulse 88, it is regular. LUNGS: Clear. CARDIAC: Systolic murmur as before. ABDOMEN: Soft, nontender. EXTREMITIES: No edema. LABORATORY DATA: The hemoglobin is 8.6. ASSESSMENT: 1. Bacteremia. 2. Bioprosthetic aortic valve. 3. Cirrhosis. 4. Echocardiogram did not show any significant abnormalities. PLAN: 1. Continue antibiotics. 2. I would have to clear with Dr. Nunez where there is thought it would be okay to do upper endo scopy and the patient has just had esophageal variceal banding, we would hold off for now.
--- NOTE | 2017-08-12 01:19 | PRG ---
DATE OF SERVICE: 08/11/2017 SUBJECTIVE: Patient had transthoracic echo which was not revealing of any vegetations. The patient could not have transesophageal because of concern with bleeding from his varices. Feeling 90% better . No respiratory symptoms or abdominal pain. No diarrhea. PHYSICAL EXAMINATION: VITAL SIGNS: His temperature has been normal. GENERAL: Awake, alert and oriented. LUNGS: Clear. HEART: S1, S2, regular rate. ABDOMEN: Distended with positive fluid wave. No joint inflammatory activity noted. LABORATORY DATA: White cell count 5.9, hemoglobin 8.6 and platelets 73,000. ASSESSMENT AND DISCUSSION: Prior alcoholism with liver cirrhosis, portal hypertension, recent EGD, a ortic valve replacement with prosthetic tissue valve and Streptococcus vestibularis bacteremia. Says we are not able to rule out endocarditis. We will treat as if he did have it in view of the high pr opensity for this type of organism to be associated with prosthetic valve endocarditis. Rocephin 2 g maría daily for 6 weeks. PICC line placement.
[2017-08-12] MEDS: Saccharomyces boulardii 250 MG CAP PO SCH (08:39)
--- NOTE | 2017-08-12 11:18 | PDOC.PN ---
- Subjective Encounter Start Date: 08/12/17 Encounter Start Time: 09:00 Patient seen and examined. No new complaints. No overnight events - Objective Resuscitation Status: Resuscitation Status FULL:Full Resuscitation MAR Reviewed: Yes Vital Signs & Weight: Vital Signs (12 hours) Temp Pulse Resp BP BP Pulse Ox 08/12/17 08:00 98.9 F 103 H 18 99 08/12/17 07:35 98.9 F 103 H 18 169/52 H 99 08/12/17 04:00 98.4 F 93 16 142/82 H 95 08/12/17 00:00 98.5 F 96 16 117/69 96 Weight Weight 245 lb 11.2 oz I&O: 08/11/17 08/12/17 08/13/17 06:59 06:59 06:59 Intake Total 1800 1880 240 Output Total 2300 Balance -500 1880 240 Result Diagrams: 08/11/17 08:08 08/11/17 08:08 Phys Exam - Physical Examination Constitutional: NAD HEENT: PERRLA, moist MMs, sclera anicteric Neck: no JVD, supple Respiratory: no wheezing, no rales, no rhonchi Cardiovascular: RRR, no significant murmur, no rub Gastrointestinal: soft, non-tender, no distention, positive bowel sounds ascites+ Musculoskeletal: no edema, pulses present Neurological: non-focal, normal sensation, moves all 4 limbs Lymphatic: no nodes Psychiatric: normal affect, A&O x 3 Skin: no rash, normal turgor Dx/Plan (1) Bacteremia due to Streptococcus Code(s): R78.81 - BACTEREMIA; B95.5 - UNSP STREPTOCOCCUS THE CAUSE OF DISEASES CLASSD ELSWHR Status: Acute (2) SBP (spontaneous bacterial peritonitis) Code(s): K65.2 - SPONTANEOUS BACTERIAL PERITONITIS Status: Suspected (3) AVM (arteriovenous malformation) of duodenum, acquired Code(s): K31.819 - ANGIODYSPLASIA OF STOMACH AND DUODENUM WITHOUT BLEEDING Status: Acute (4) Sepsis with acute organ dysfunction Code(s): A41.9 - SEPSIS, UNSPECIFIED ORGANISM; R65.20 - SEVERE SEPSIS WITHOUT SEPTIC SHOCK Status: Acute (5) Alcohol abuse Code(s): F10.10 - ALCOHOL ABUSE, UNCOMPLICATED Status: Chronic (6) Anemia, normocytic normochromic Code(s): D64.9 - ANEMIA, UNSPECIFIED Status: Chronic (7) CAD (coronary artery disease) Code(s): I25.10 - ATHSCL HEART DISEASE OF [place] CORONARY ARTERY W/O ANG PCTRS Status: Chronic Qualifiers: Comment: Stable. Chest pain free. Will continue home meds. ASA being held 2/2 occult blood + (8) Chronic diastolic CHF (congestive heart failure), NYHA class 3 Code(s): I50.32 - CHRONIC DIASTOLIC (CONGESTIVE) HEART FAILURE Status: Chronic Comment: Not in acute exacerbation. Continue current regimen. (9) Cirrhosis of liver with ascites Code(s): K74.60 - UNSPECIFIED CIRRHOSIS OF LIVER; R18.8 - OTHER ASCITES Status : Chronic (10) Coagulopathy Status: Chronic (11) Diabetes type 2, controlled Code(s): E11.9 - TYPE 2 DIABETES MELLITUS WITHOUT COMPLICATIONS Status: Chronic Qualifiers: Comment: (12) Esophageal varices Code(s): I85.00 - ESOPHAGEAL VARICES WITHOUT BLEEDING Status: Chronic (13) H/O gastric ulcer Code(s): Z87.19 - PERSONAL HISTORY OF OTHER DISEASES OF THE DIGESTIVE SYSTEM Status: Chronic (14) Hypertension Code(s): I10 - ESSENTIAL (PRIMARY) HYPERTENSION Status: Chronic Qualifiers: Comment: (15) Hyponatremia Code(s): E87.1 - HYPO-OSMOLALITY AND HYPONATREMIA Status: Chronic Comment: Likely 2/2 potomania/cirrhosis. Improving. (16) Obesity (BMI 30.0-34.9) Code(s): E66.9 - OBESITY, UNSPECIFIED Status: Chronic (17) S/P aortic valve replacement with bioprosthetic valve Code(s): Z95.3 - PRESENCE OF XENOGENIC HEART VALVE Status: Chronic (18) Thrombocytopenia Code(s): D69.6 - THROMBOCYTOPENIA, UNSPECIFIED Status: Chronic Comment: Likely hypersplenism/cirrhosis. Will monitor. (19) Lactic acidosis Code(s): E87.2 - ACIDOSIS Status: Resolved - Plan cont current plan of care, continue antibiotics, renal social worker * as per dr tamayo will treat as if IE * will need picc line today * continue rocephin till 09/21/17 * lining caser to arrange outpt iv antibiotics therapy * medication reviewed as below * symptomatic treatment. Review of Systems - Review of Systems Eyes: negative: Pain, Vision Change, Conjunctivae Inflammation, Eyelid Inflammation, Redness, Other ENT: negative: Ear Pain, Ear Discharge, Nose Pain, Nose Discharge, Nose Congestion, Mouth Pain, Mouth Swelling, Throat Pain, Throat Swelling, Other Respiratory: negative: Cough, Dry, Shortness of Breath, Hemoptysis, SOB with Excertion, Pleuritic Pain, Sputum, Wheezing Cardiovascular: negative: chest pain, palpitations, orthopnea, paroxysmal nocturnal dyspnea, edema, light headedness, other Gastrointestinal: negative: Nausea, Vomiting, Abdominal Pain, Diarrhea, Constipation, Melena, Hematochezia, Other Genitourinary: negative: Dysuria, Frequency, Incontinence, Hematuria, Retention , Other Musculoskeletal: negative: Neck Pain, Shoulder Pain, Arm Pain, Back Pain, Hand Pain, Leg Pain, Foot Pain, Other Skin: negative: Rash, Lesions, Nick, Bruising, Other - Medications/Allergies Allergies/Adverse Reactions: Allergies Allergy/AdvReac Type Severity Reaction Status Date / Time cephalexin [From Keflex] Allergy Rash Verified 08/02/17 13:31 Medications: Current Medications Acetaminophen (Tylenol) 650 mg PO Q4H PRN PRN Reason: Headache/Fever or Pain Hydrocodone Bitart/Acetaminophen ([place] 5/325) 1 tab PO Q4H PRN PRN Reason: Moderate Pain (4-6) Al Hydroxide/Mg Hydroxide (Maalox) 30 ml PO Q6H PRN PRN Reason: Heartburn or Indigestion Albuterol/Ipratropium (Duoneb) 3 ml NEB [id number] PRN PRN Reason: SOB &/or Wheezing Artificial Tears (Tears Renewed 15ml Bottle) 0 drop EA EYE PRN PRN PRN Reason: Dry Eyes Guaifenesin (Robitussin Sf) 200 mg PO Q4H PRN PRN Reason: Cough Hydralazine HCl (Apresoline) 5 mg SLOW IVP Q4H PRN PRN Reason: Systolic BP > 180 Ceftriaxone Sodium 2 gm/ (Sodium Chloride) 100 mls @ 200 mls/hr IVPB Q24HR [facility] Last Admin: 08/11/17 14:04 Dose: 100 mls Loperamide HCl (Imodium) 2 mg PO PRN PRN PRN Reason: Diarrhea/Loose Stools Loratadine (Claritin) 10 mg PO DAILYPRN PRN PRN Reason: Sinus Symptoms Magnesium Hydroxide (Milk Of Magnesium) 30 ml PO DAILYPRN PRN PRN Reason: Constipation Last Admin: 08/09/17 12:19 Dose: 30 ml Mineral Oil/White Petrolatum (Eucerin Cream) 0 gm TOP BIDPRN PRN PRN Reason: Dry Skin Ondansetron HCl (Zofran Odt) 4 mg PO Q6H PRN PRN Reason: Nausea/Vomiting Ondansetron HCl (Zofran) 4 mg IVP Q6H PRN PRN Reason: Nausea/Vomiting Pantoprazole Sodium (Protonix) 40 mg PO DAILY [facility] Last Admin: 08/12/17 08:39 Dose: 40 mg Phenol (Chloraseptic [place] 180 Ml Bot) 0 ml PO PRN PRN PRN Reason: Sore Throat Saccharomyces Boulardii (Florastor) 250 mg PO DAILY [facility] Last Admin: 08/12/17 08:39 Dose: 250 mg Senna (Senokot) 2 tab PO HSPRN PRN PRN Reason: Constipation Sodium Chloride ([place] Nasal [place] 0.65%) 0 ml EA NARE QIDPRN PRN PRN Reason: Nasal Congestion Zolpidem Tartrate (Ambien) 5 mg PO HSPRN PRN PRN Reason: Insomnia
--- NOTE | 2017-08-12 11:56 | SPC ---
LEFT UPPER EXTREMITY PICC LINE PLACEMENT WITH ULTRASOUND GUIDANCE: HISTORY: Heart valve inspection. COMPARISON: None. EXPOSURE: 0.5 minutes 3704 mGy per cm2. FINDINGS: Technically successful left upper extremity PICC line placement with ultrasound guidance. There is a single lumen, 5 [place] catheter with the distal tip in the SVC/right atrial junction. Trim length i s 42 cm. TECHNIQUE: Consent obtained to perform a left upper extremity PICC line placement with ultrasound guidance. The left arm was prepped and draped in a sterile fashion, and 1% Lidocaine buffered with sodium bicarbon ate was used for local anesthesia. Under ultrasound guidance, a micropuncture needle was used to can nulate the basilic vein. A 0.018 guide wire was advanced through the needle, to the level of the sup erior vena cava. Under fluoroscopy, the wire was advanced to the inferior vena cava to document veno us access. The wire was successfully pulled back to the SVC/right atrial junction. The tract was di lated. A single-lumen, 5 [place] catheter was advanced over the wire. Trim length was 42 cm. The ca theter flushes and aspirates without difficulty. IMPRESSION: Successful left upper extremity peripherally inserted central catheter line placement with ultrasound guidance. POS: [facility]
[2017-08-12] MEDS: cefTRIAXone\\ROCEPHIN 2 GM in Sodium Chloride 0.9% 100 ML IVPB SCH (13:54)
--- NOTE | 2017-08-13 02:30 | PRG ---
DATE OF SERVICE: 08/12/2017 SUBJECTIVE: This is a 61-year-old with liver cirrhosis, ascites. He underwent EGD and get s variceal banding approximately 9 days ago. He returned to the ER on Wednesday with fever and chills. He had fever of 102. Since admission, he has been remained afebrile. His ascitic fluid culture is negative for pathology. He also has negative chest x-ray. His blood culture growing Streptococcus. He was seen by Dr. Cong Matos, ID it solutions sales consultant. He is on IV antibiotics. A transthoracic echocard iogram shows no growth sensation on the wall. However, it cannot be completely ruled out. He needs a WILLIAMS. Recent visual banding, Drama Critic is not very sure whether he will undergo WILLIAMS. The patien t is totally asymptomatic. He remains afebrile. No abdominal pain, no nausea or vomiting. OBJECTIVE: VITAL SIGNS: Pulse 100, blood pressure 126/75. CARDIOVASCULAR SYSTEM: Within normal limits. LUNGS: Within normal limits. ABDOMEN: Distended with ascites. Abdomen is nontender. The patient has a PICC line placement done and the plan is for him to get 6 weeks of chemoradiation t herapy, 6 weeks of IV antibiotics.
[2017-08-13] MEDS: Saccharomyces boulardii 250 MG CAP PO SCH (07:40)
--- NOTE | 2017-08-13 09:40 | PDOC.PN ---
- Subjective Encounter Start Date: 08/13/17 Encounter Start Time: 08:20 Patient seen and examined. No new complaints. No overnight events - Objective Resuscitation Status: Resuscitation Status FULL:Full Resuscitation MAR Reviewed: Yes Vital Signs & Weight: Vital Signs (12 hours) Temp Pulse Resp BP BP Pulse Ox 08/13/17 08:00 97.7 F 90 14 08/13/17 07:40 97.7 F 90 14 121/70 99 08/13/17 04:00 98.2 F 97 16 120/70 96 Weight Weight 245 lb 11.2 oz I&O: 08/12/17 08/13/17 08/14/17 06:59 06:59 06:59 Intake Total 1879 2079 Output Total 150 Balance 1879 1929 Result Diagrams: 08/11/17 08:08 08/11/17 08:08 Phys Exam - Physical Examination Constitutional: NAD HEENT: PERRLA, moist MMs, sclera anicteric Neck: no JVD, supple Respiratory: no wheezing, no rales, no rhonchi Cardiovascular: RRR, no significant murmur, no rub Gastrointestinal: soft, non-tender, positive bowel sounds Musculoskeletal: no edema, pulses present Neurological: non-focal, normal sensation, moves all 4 limbs Psychiatric: normal affect, A&O x 3 Skin: no rash, normal turgor Dx/Plan (1) Bacteremia due to Streptococcus Code(s): R78.81 - BACTEREMIA; B95.5 - UNSP STREPTOCOCCUS THE CAUSE OF DISEASES CLASSD ELSWHR Status: Acute (2) SBP (spontaneous bacterial peritonitis) Code(s): K65.2 - SPONTANEOUS BACTERIAL PERITONITIS Status: Suspected (3) AVM (arteriovenous malformation) of duodenum, acquired Code(s): K31.819 - ANGIODYSPLASIA OF STOMACH AND DUODENUM WITHOUT BLEEDING Status: Acute (4) Sepsis with acute organ dysfunction Code(s): A41.9 - SEPSIS, UNSPECIFIED ORGANISM; R65.20 - SEVERE SEPSIS WITHOUT SEPTIC SHOCK Status: Acute (5) Alcohol abuse Code(s): F10.10 - ALCOHOL ABUSE, UNCOMPLICATED Status: Chronic (6) Anemia, normocytic normochromic Code(s): D64.9 - ANEMIA, UNSPECIFIED Status: Chronic (7) CAD (coronary artery disease) Code(s): I25.10 - ATHSCL HEART DISEASE OF [place] CORONARY ARTERY W/O ANG PCTRS Status: Chronic Qualifiers: Comment: Stable. Chest pain free. Will continue home meds. ASA being held 2/2 occult blood + (8) Chronic diastolic CHF (congestive heart failure), NYHA class 3 Code(s): I50.32 - CHRONIC DIASTOLIC (CONGESTIVE) HEART FAILURE Status: Chronic Comment: Not in acute exacerbation. Continue current regimen. (9) Cirrhosis of liver with ascites Code(s): K74.60 - UNSPECIFIED CIRRHOSIS OF LIVER; R18.8 - OTHER ASCITES Status : Chronic (10) Coagulopathy Status: Chronic (11) Diabetes type 2, controlled Code(s): E11.9 - TYPE 2 DIABETES MELLITUS WITHOUT COMPLICATIONS Status: Chronic Qualifiers: Comment: (12) Esophageal varices Code(s): I85.00 - ESOPHAGEAL VARICES WITHOUT BLEEDING Status: Chronic (13) H/O gastric ulcer Code(s): Z87.19 - PERSONAL HISTORY OF OTHER DISEASES OF THE DIGESTIVE SYSTEM Status: Chronic (14) Hypertension Code(s): I10 - ESSENTIAL (PRIMARY) HYPERTENSION Status: Chronic Qualifiers: Comment: (15) Hyponatremia Code(s): E87.1 - HYPO-OSMOLALITY AND HYPONATREMIA Status: Chronic Comment: Likely 2/2 potomania/cirrhosis. Improving. (16) Obesity (BMI 30.0-34.9) Code(s): E66.9 - OBESITY, UNSPECIFIED Status: Chronic (17) S/P aortic valve replacement with bioprosthetic valve Code(s): Z95.3 - PRESENCE OF XENOGENIC HEART VALVE Status: Chronic (18) Thrombocytopenia Code(s): D69.6 - THROMBOCYTOPENIA, UNSPECIFIED Status: Chronic Comment: Likely hypersplenism/cirrhosis. Will monitor. (19) Lactic acidosis Code(s): E87.2 - ACIDOSIS Status: Resolved - Plan cont current plan of care, continue antibiotics, social worker school * medication reviewed as below * symptomatic treatment * medically stable for discharge * discharge medication reconciliation done. * see discharge harrison for details Review of Systems - Review of Systems Eyes: negative: Pain, Vision Change, Conjunctivae Inflammation, Eyelid Inflammation, Redness, Other ENT: negative: Ear Pain, Ear Discharge, Nose Pain, Nose Discharge, Nose Congestion, Mouth Pain, Mouth Swelling, Throat Pain, Throat Swelling, Other Respiratory: negative: Cough, Dry, Shortness of Breath, Hemoptysis, SOB with Excertion, Pleuritic Pain, Sputum, Wheezing Cardiovascular: negative: chest pain, palpitations, orthopnea, paroxysmal nocturnal dyspnea, edema, light headedness, other Gastrointestinal: negative: Nausea, Vomiting, Abdominal Pain, Diarrhea, Constipation, Melena, Hematochezia, Other Genitourinary: negative: Dysuria, Frequency, Incontinence, Hematuria, Retention , Other Musculoskeletal: negative: Neck Pain, Shoulder Pain, Arm Pain, Back Pain, Hand Pain, Leg Pain, Foot Pain, Other Skin: negative: Rash, Lesions, Nick, Bruising, Other - Medications/Allergies Allergies/Adverse Reactions: Allergies Allergy/AdvReac Type Severity Reaction Status Date / Time cephalexin [From Keflex] Allergy Rash Verified 08/02/17 13:31 Medications: Current Medications Acetaminophen (Tylenol) 650 mg PO Q4H PRN PRN Reason: Headache/Fever or Pain Hydrocodone Bitart/Acetaminophen ([place] 5/325) 1 tab PO Q4H PRN PRN Reason: Moderate Pain (4-6) Al Hydroxide/Mg Hydroxide (Maalox) 30 ml PO Q6H PRN PRN Reason: Heartburn or Indigestion Albuterol/Ipratropium (Duoneb) 3 ml NEB [id number] PRN PRN Reason: SOB &/or Wheezing Artificial Tears (Tears Renewed 15ml Bottle) 0 drop EA EYE PRN PRN PRN Reason: Dry Eyes Guaifenesin (Robitussin Sf) 200 mg PO Q4H PRN PRN Reason: Cough Hydralazine HCl (Apresoline) 5 mg SLOW IVP Q4H PRN PRN Reason: Systolic BP > 180 Ceftriaxone Sodium 2 gm/ (Sodium Chloride) 100 mls @ 200 mls/hr IVPB Q24HR NICK Last Admin: 08/12/17 13:54 Dose: 100 mls Loperamide HCl (Imodium) 2 mg PO PRN PRN PRN Reason: Diarrhea/Loose Stools Loratadine (Claritin) 10 mg PO DAILYPRN PRN PRN Reason: Sinus Symptoms Magnesium Hydroxide (Milk Of Magnesium) 30 ml PO DAILYPRN PRN PRN Reason: Constipation Last Admin: 08/09/17 12:19 Dose: 30 ml Mineral Oil/White Petrolatum (Eucerin Cream) 0 gm TOP BIDPRN PRN PRN Reason: Dry Skin Ondansetron HCl (Zofran Odt) 4 mg PO Q6H PRN PRN Reason: Nausea/Vomiting Ondansetron HCl (Zofran) 4 mg IVP Q6H PRN PRN Reason: Nausea/Vomiting Pantoprazole Sodium (Protonix) 40 mg PO DAILY [facility] Last Admin: 08/13/17 07:40 Dose: 40 mg Phenol (Chloraseptic [place] 180 Ml Bot) 0 ml PO PRN PRN PRN Reason: Sore Throat Saccharomyces Boulardii (Florastor) 250 mg PO DAILY [facility] Last Admin: 08/13/17 07:40 Dose: 250 mg Senna (Senokot) 2 tab PO HSPRN PRN PRN Reason: Constipation Sodium Chloride ([place] Nasal [place] 0.65%) 0 ml EA NARE QIDPRN PRN PRN Reason: Nasal Congestion Zolpidem Tartrate (Ambien) 5 mg PO HSPRN PRN PRN Reason: Insomnia
--- NOTE | 2017-08-13 11:11 | DIS ---
DATE OF ADMISSION: 08/06/2017 DATE OF DISCHARGE: 08/13/2017 PRIMARY CARE PHYSICIAN: Bianca Gibbs D.O. DISCHARGE DISPOSITION: Home with outpatient IV antibiotic therapy. PRIMARY DISCHARGE DIAGNOSES: Bacteremia due to Streptococcus vestibularis, sepsis with acute organ d ysfunction, lactic acidosis, resolved. SECONDARY DISCHARGE DIAGNOSES: Arteriovenous malformation of duodenal bulb, alcohol abuse, normocyti c normochromic anemia, coronary artery disease, chronic diastolic heart failure, cirrhosis of liver w ith ascites, coagulopathy due to liver disease, diabetes type 2, history of esophageal varices requir ed recent banding, history of gastric ulcer required cauterization, hypertension, obesity with body m ass index 33, history of aortic valve replacement with bioprosthetic valve, chronic thrombocytopenia, lactic acidosis, resolved. PRIMARY PROCEDURE/OPERATION: PICC line placement on 08/12/2017. Diagnostic therapeutic paracentesis . RADIOLOGICAL INVESTIGATION: Abdomen and pelvis CT scan was unremarkable other than cirrhosis of live r. Echocardiography showed no vegetation with EF 55%-60%, normally functioning bioprosthetic valve. SIGNIFICANT LABORATORY DATA: WBC 5.9, hemoglobin 8.6, platelet 73, INR 2.0. Sodium 132, potassium 4 .2, BUN 7, creatinine 0.73, calcium 8.6, AST 45, ALT 24, alkaline phosphatase 137, albumin 2.9. Urin alysis; leukocyte small. Ascitic fluid WBC 435. Blood culture negative. Ascitic fluid culture nega tive. DISCHARGE MEDICATIONS: Rocephin 2 gram IV daily until 09/21/2017, Florastor 250 mg p.o. daily, lactu lose 20 grams p.o. t.i.d., Toprol-XL 50 mg p.o. daily, Protonix 40 mg p.o. daily, Florastor 250 mg p. o. daily, and Aldactone 100 mg p.o. daily. CONTRAINDICATIONS: None. CODE STATUS: FULL CODE. INPATIENT CONSULTANTS: Dr. Matos was consulted for bacteremia. Dr. Garcia was consulted for evaluat ion for WILLIAMS. Dr. Nunez was consulted while in hospital for cirrhosis of liver. TEST RESULTS PENDING ON DISCHARGE: None. ALLERGIES: KEFLEX. DISCHARGE PLAN: Post hospital, patient will follow up with primary care physician, Dr. Matos and Dr. Nunez as instructed. HOSPITAL COURSE: A 61-year-old male with above-mentioned medical problem who was admitted by me on 0 08/06/2017. Please see my HPI for further details. This patient had recent upper endoscopy in 3 days after patient was having fever with chills. He was meeting sepsis criteria. He came to the ER, he was having high grade fever, lactic acidosis. We starks spected SBP and that is why he underwent paracentesis. Six liters of fluid was removed, but his isaiah toneal fluid was not classically SBP. Subsequently, his blood culture was positive for Streptococcus vestibularis and as patient has biopro sthetic aortic valve, we were worried about endocarditis. We consulted Dr. Matos and Dr. Matos order ed CT of the abdomen and pelvis which was unremarkable. Subsequently, we consulted Cardiology for TE E to rule out infective endocarditis. Initially, patient was given cefepime, Levaquin, and vancomycin, but subsequently antibiotic therapy was changed to only Rocephin per Dr. Matos' recommendation. Dr. Nunez was also following while in hospital. After starting antibiotic therapy, he did not curtis ve any further fever and he remained hemodynamically stable. Initially, this patient was admitted to telemetry floor and subsequently we transferred him to medica l floor. Dr. Garcia recommended that this patient should not go for transesophageal echocardiography as patien t had recently banding and that is why Dr. Matos decided to treat him as if infective endocarditis. PICC line was placed and patient will get IV antibiotic therapy Rocephin with PICC line until 018. capture manager is arranging his home health and outpatient IV antibiotic therapy. Patient is seen and examined at bedside today. Please see my progress note from today for further de tail. Total time spent on discharge day 31 minutes.
[2017-08-13 11:52] VITALS: BP 130/79; TEMP 98.1
[2017-08-13] MEDS: cefTRIAXone\\ROCEPHIN 2 GM in Sodium Chloride 0.9% 100 ML IVPB SCH (13:44)
== END 2017-08-13 15:07 | disposition home or self-care (01) | DRG 871 ==
LOC: ERS 09:07 → 2NO 14:22 → T4-B 08-07 13:07
PROVIDERS: ADMIT Internal Medicine; ATTEND Internal Medicine
PROC: 0W9G3ZZ Drainage of Peritoneal Cavity, Percutaneous Approach (ICD-10-PCS; principal; 2017-08-06)
PROC: 02HV33Z Insertion of Infusion Device into Superior Vena Cava, Percutaneous Approach (ICD-10-PCS; 2017-08-12)
PROC: B548ZZA Ultrasonography of Superior Vena Cava, Guidance (ICD-10-PCS; 2017-08-12)
DX: A40.8 Other streptococcal sepsis (principal); K65.2 Spontaneous bacterial peritonitis; N17.9 Acute kidney failure, unspecified; K76.6 Portal hypertension; I85.10 Secondary esophageal varices without bleeding; E87.2 Acidosis; E87.1 Hypo-osmolality and hyponatremia; I50.32 Chronic diastolic (congestive) heart failure; D68.4 Acquired coagulation factor deficiency; Z87.891 Personal history of nicotine dependence; E78.5 Hyperlipidemia, unspecified; K70.31 Alcoholic cirrhosis of liver with ascites; Z95.3 Presence of xenogenic heart valve; Z96.642 Presence of left artificial hip joint; E66.9 Obesity, unspecified; Z68.33 Body mass index [BMI] 33.0-33.9, adult; K31.819 Angiodysplasia of stomach and duodenum without bleeding; F10.10 Alcohol abuse, uncomplicated; D64.9 Anemia, unspecified; I25.10 Atherosclerotic heart disease of native coronary artery without angina pectoris; I50.84 End stage heart failure; I11.0 Hypertensive heart disease with heart failure; E11.9 Type 2 diabetes mellitus without complications; Z79.4 Long term (current) use of insulin; D69.6 Thrombocytopenia, unspecified; R65.20 Severe sepsis without septic shock
CPT/HCPCS: 36415; 36569; 49083; 74178; 80048; 80053; 80202; 81001; 82140; 82945; 83605; 83615; 84157; 85025; 85060; 85610; 85730; 86140; 87040; 87070; 87205; 89051; 93306; 96360; 96361; C1751; J0696; J1956; J2543; J3370; J7050

== ENCOUNTER 2018-06-09 09:42 | Outpatient (CLI) | payer OTHER ==
--- NOTE | 2018-06-09 10:45 | ULT ---
ULTRASOUND ABDOMEN: HISTORY: Cirrhosis. FINDINGS: The liver demonstrates an articular surface consistent with cirrhosis. No focal mass or intrahepatic ductal dilatation is seen. The spleen is enlarged measuring 14 cm in length. No gallstones or gall bladder sludge is seen. The gallbladder wall is mildly thickened measuring 4 mm. The common duct me asures 4 mm in diameter. The pancreas is not well visualized. Both kidneys have a normal appearance . The aorta is not well visualized. Visualized portions of the IVC are unremarkable. There is a la rge amount of free fluid consistent with ascites. IMPRESSION: 1. Cirrhosis of the liver. 2. Splenomegaly. 3. Ascites. POS: H
== END 2018-06-09 09:43 | disposition home or self-care (01) ==
LOC: BICULT 09:42
PROVIDERS: ATTEND Internal Medicine Gastroenterology
DX: K74.60 Unspecified cirrhosis of liver (principal); R16.1 Splenomegaly, not elsewhere classified; R18.8 Other ascites
CPT/HCPCS: 76700

== ENCOUNTER 2018-06-13 08:14 | Day surgery (SDC) | payer OTHER ==
[2018-06-10 12:13] VITALS: BMI 29.5
[2018-06-13] MEDS ORDERED: Sodium Bicarbonate 2.5 MEQ/5 ML VIAL ONE (08:24)
[2018-06-13] MEDS ORDERED: Lidocaine 1% PF 5 ML VIAL ONE (08:24)
[2018-06-13] MEDS ORDERED: Albumin 25% 100 ML ONE ×2 (08:24→13:08)
[2018-06-13 11:14] VITALS: BP 106/52; TEMP 98.3
--- NOTE | 2018-06-13 11:48 | ULT ---
US Paracentesis with Imaging History: [Ascites] Comparison: Ultrasound paracentesis August 06, 2017 Findings: Patient was brought to the ultrasound suite. All questions were answered. Informed consent was obtained. Timeout performed. Patient's right lower quadrant of the abdomen was prepped and draped in normal sterile fashion. 4 mild lidocaine was instilled into the superficial and deep soft tissues. After adequate anesthesia a 5 [place] Yueh needle was instilled into the peritoneal space. The ascites was straw-colored. 7000 mL of ascites was removed. Impression: Technically successful ultrasound-guided paracentesis with removal of 7 L of fluid.
[2018-06-13 12:32] LABS: Fluid, Protein 2.3 g/dL (Not Available)
[2018-06-13 12:44] LABS: BF Color Yellow; BF RBC Count - Manual 16 /cumm; BF WBC/Nonhematics Ct. - Manua 20 /cumm; Body Fluid Source Ascites Body Fluid; Clarity Hazy (Clear); Tube # EDTA
[2018-06-13 13:16] LABS: BF Segmented Neutrophils 6 %; Cell Count Non Hematic 69 %; Lymphocytes 25 %
== END 2018-06-13 10:07 | disposition home or self-care (01) ==
LOC: ULT 08:14
PROVIDERS: ATTEND Internal Medicine Gastroenterology
PROC: 0W9G3ZZ Drainage of Peritoneal Cavity, Percutaneous Approach (ICD-10-PCS; principal; 2018-06-13)
DX: K74.60 Unspecified cirrhosis of liver (principal); R18.8 Other ascites; I25.10 Atherosclerotic heart disease of native coronary artery without angina pectoris; I10 Essential (primary) hypertension; K21.9 Gastro-esophageal reflux disease without esophagitis; E78.00 Pure hypercholesterolemia, unspecified; M19.90 Unspecified osteoarthritis, unspecified site; F10.10 Alcohol abuse, uncomplicated; Z79.82 Long term (current) use of aspirin; Z79.899 Other long term (current) drug therapy; Z95.2 Presence of prosthetic heart valve
CPT/HCPCS: 49083; 82945; 83615; 84157; 85060; 89051; J2001; P9047

== ENCOUNTER 2018-10-03 09:45 | Day surgery (SDC) | payer OTHER ==
[2018-09-30 15:08] VITALS: BMI 29.5
[2018-10-03] MEDS ORDERED: Sodium Bicarbonate 2.5 MEQ/5 ML VIAL ONE (10:54)
--- NOTE | 2018-10-03 13:37 | ULT ---
Exam: Ultrasound guided paracentesis HISTORY: Ascites COMPARISON: 06/13/2018 FINDINGS: Successful ultrasound-guided paracentesis. Total of 5 L of yellow color ascites was aspirat ed. TECHNIQUE: Consent obtained reformatory ultrasound-guided paracentesis. Right lower quadrant was deem ed appropriate. Skin was prepped and draped in a sterile fashion. 1% lidocaine, buffered with sodium bicarbonate was used for local anesthesia. Under ultrasound guidance, a 5 Sami 7 cm Yueh cat heter is advanced in the peritoneal space. A total of 5 L of yellow color ascites was aspirated. No immediate or postprocedural complications IMPRESSION: Successful ultrasound-guided paracentesis.
== END 2018-10-03 12:25 | disposition home or self-care (01) ==
LOC: ULT 09:45
PROVIDERS: ATTEND Internal Medicine Gastroenterology
PROC: 0W9G3ZZ Drainage of Peritoneal Cavity, Percutaneous Approach (ICD-10-PCS; principal; 2018-10-03)
DX: K74.60 Unspecified cirrhosis of liver (principal); R18.8 Other ascites; E11.9 Type 2 diabetes mellitus without complications; I25.10 Atherosclerotic heart disease of native coronary artery without angina pectoris; I11.0 Hypertensive heart disease with heart failure; I50.9 Heart failure, unspecified; M19.90 Unspecified osteoarthritis, unspecified site; K21.9 Gastro-esophageal reflux disease without esophagitis; E66.9 Obesity, unspecified; Z68.29 Body mass index [BMI] 29.0-29.9, adult; Z79.82 Long term (current) use of aspirin; Z79.899 Other long term (current) drug therapy; Z95.2 Presence of prosthetic heart valve
CPT/HCPCS: 49083

== ENCOUNTER 2018-12-12 08:22 | Day surgery (SDC) | payer MEDICARE, OTHER ==
[2018-12-09 08:42] VITALS: BMI 29.5
[2018-12-12] MEDS ORDERED: Albumin 25% 200 ML ONE (08:37)
[2018-12-12] MEDS ORDERED: Sodium Bicarbonate 2.5 MEQ/5 ML VIAL ONE (08:37)
[2018-12-12 08:40] LABS: #Eosinphils 0.3 thou/uL (0.0-0.7); #Lymphocytes 1.2 thou/uL (1.20-3.40); #Monocytes 0.8 thou/uL (0.11-0.59); #Neutrophils 4.9 thou/uL (1.40-6.50); %Basophils 0.5 % (0.0-1.0); %Eosinophils 3.5 % (0.0-10.0); %Lymphocytes 17.2 % (21.0-51.0); %Neutrophils 67.7 % (42.0-75.0); Hemoglobin 10.7 g/dL (14.0-18.0); Mean Corpuscular HGB CONC 33.4 g/dL (32.0-36.0); Mean Corpuscular Hemoglobin 33.2 pg (27.0-31.0); Mean Corpuscular Volume 99.4 fL (78.0-98.0); Platelet Count 121 thou/uL (130-400); RBC Distribution Width 13.4 % (11.5-14.5); Red Blood Cell (RBC) Count 3.22 mill/uL (4.70-6.10); White Blood Cell (WBC) Count 7.2 thou/uL (4.8-10.8)
[2018-12-12 08:42] LABS: INR-International Normal Ratio 1.4; PTT 38.8 SEC (22.9-36.1); Prothrombin Time 16.7 SEC (12.0-14.7)
--- NOTE | 2018-12-12 10:59 | ULT ---
Exam: Ultrasound guided paracentesis HISTORY: Ascites COMPARISON: 10/03/2018 FINDINGS: Successful ultrasound-guided paracentesis. Total of 6 L of yellow color ascites was aspirat ed. TECHNIQUE: Consent obtained reformatory ultrasound-guided paracentesis. Right lower quadrant was deem ed appropriate. Skin was prepped and draped in a sterile fashion. 1% lidocaine, buffered with sodium bicarbonate was used for local anesthesia. Under ultrasound guidance, a 5 [place] 7 cm Yueh cat heter is advanced in the peritoneal space. A total of 6 L of yellow color ascites was aspirated. No immediate or postprocedural complications IMPRESSION: Successful ultrasound-guided paracentesis.
[2018-12-12 13:02] VITALS: BP 124/59; TEMP 98.5
== END 2018-12-12 10:45 | disposition home or self-care (01) ==
LOC: ULT 08:22
PROVIDERS: ATTEND Internal Medicine Gastroenterology
PROC: 0W9G3ZZ Drainage of Peritoneal Cavity, Percutaneous Approach (ICD-10-PCS; principal; 2018-12-12)
DX: K74.60 Unspecified cirrhosis of liver (principal); R18.8 Other ascites; I11.0 Hypertensive heart disease with heart failure; E11.9 Type 2 diabetes mellitus without complications; I25.10 Atherosclerotic heart disease of native coronary artery without angina pectoris; I50.9 Heart failure, unspecified; K21.9 Gastro-esophageal reflux disease without esophagitis; M19.90 Unspecified osteoarthritis, unspecified site; Z79.899 Other long term (current) drug therapy; Z95.2 Presence of prosthetic heart valve
CPT/HCPCS: 49083; 85025; 85610; 85730; P9047; 36415